=== PATIENT | male | born 1955 | race Caucasian/White ===

== ENCOUNTER 2018-08-12 15:18 | Inpatient (IN) | payer BC ==
[2018-08-12] MEDS ORDERED: KETOROLAC 30 MG/ML 1 ML VIAL IVP STA (16:23)
--- NOTE | 2018-08-12 16:25 | ED ---
Abdominal Pain HPI - General Chief Complaint: Abdominal Pain Stated Complaint: LLQ pain/Hx Hep C Time Seen by Provider: 08/12/18 16:00 Source: patient Mode of arrival: ambulatory Limitations: no limitations - History of Present Illness Initial Comments: Patient is a 62-year-old male presented for abdominal pain. The patient states that he has had hepatitis B and hepatitis C the last 30 years and effort last couple weeks, he has been having worsening abdominal pain is located in the left upper quadrant. As like an achy sensation which does not radiate and is fairly constant. However, it is worse with movement and is also associated with fevers and chills. He is unsure how high the fevers are gone but he has had 1-3 episodes daily over the last couple days. He denies any diarrhea as well as coughing, chest pain, shortness of breath. - Related Data Allergies Allergy/AdvReac Type Severity Reaction Status Date / Time No Known Allergies Allergy Verified 08/12/18 15:54 Review of Systems ROS Statement: Those systems with pertinent positive or pertinent negative responses have been documented in the HPI. Constitutional: Positive for chills, fatigue and fever. HENT: Negative for congestion. Respiratory: Negative for chest tightness, shortness of breath and wheezing. Negative for cough Cardiovascular: Negative for chest pain and palpitations. Gastrointestinal: Positive for abdominal pain. Negative for abdominal distention , diarrhea, positive for nausea and vomiting. Genitourinary: Negative for dysuria. Musculoskeletal: Negative for back pain, neck pain and neck stiffness. Skin: Negative for color change. Neurological: Negative for dizziness, speech difficulty, weakness and light- headedness. Psychiatric/Behavioral: Negative for agitation and confusion. Negative for anxiety ROS Other: All systems not noted in ROS Statement are negative. Past Medical History Additional Past Medical History / Comment(s): hepatitis C & B, psoriasis, skin disorder Additional Past Surgical History / Comment(s): nasal surgery Past Psychological History: No Psychological Hx Reported Smoking Status: Current every day smoker Past Alcohol Use History: None Reported Past Drug Use History: Marijuana General Exam - General Exam Comments Initial Comments: Constitutional: Pt is oriented to person, place, and time. Pt appears well- developed and well-nourished. No distress. HENT: Head: Normocephalic and atraumatic. Eyes: EOM are normal. Neck: Normal range of motion. Neck supple. Cardiovascular: Positive for tachycardia, regular rhythm, S1 normal, S2 normal and normal heart sounds. Exam reveals no gallop and no friction rub. No murmur heard. Pulmonary/Chest: Effort normal and breath sounds normal. No tachypnea and no bradypnea. No respiratory distress. No wheezes or rales noted. Abdominal: Soft. Bowel sounds are normal. Pt exhibits no shifting dullness, no distension, no pulsatile liver, no fluid wave, no abdominal bruit and no ascites. There is mild tenderness of the epigastric region. There is no rigidity , no rebound, no guarding, no tenderness at McBurney's point and negative Vazquez 's sign. Musculoskeletal: Normal range of motion. Neurological: Pt is alert and oriented to person, place, and time. No cranial nerve deficit. Skin: Skin is warm and dry. No rash noted. Pt is not diaphoretic. No erythema. No pallor. Psychiatric: Pt has a normal mood and affect. Pt behavior is normal. Thought content normal. Limitations: no limitations Course Vital Signs 08/12/18 08/12/18 08/12/18 15:54 17:57 18:00 Temperature 100.0 F H Pulse Rate 130 H 86 90 Respiratory 18 18 17 Rate Blood Pressure 155/102 O2 Sat by Pulse 95 Oximetry 08/12/18 08/12/18 08/12/18 18:30 18:40 19:00 Temperature 101 F H Pulse Rate 86 Respiratory 18 Rate Blood Pressure 113/74 O2 Sat by Pulse Oximetry 08/12/18 19:58 Temperature Pulse Rate Respiratory 16 Rate Blood Pressure 92/55 O2 Sat by Pulse 98 Oximetry Medical Decision Making - Medical Decision Making Lavatory studies showed that there was no significant leukocytosis and electrolytes were relatively within normal limits. Lactic acid was also noted to be normal but blood cultures were obtained as the patient was borderline febrile upon arrival. CT of the abdomen was performed and showed an abscess in the splenic flexure that was pericolonic in nature. Case was discussed with Dr. Torrez and it was agreed that ciprofloxacin and Flagyl could be continued. His also recommended that patient be admitted to the medical service as he does have multiple comorbidities,.Explained all labs and diagnostic test results and that we will admit patient to hospital. Pt is agreeable to plan and case has been discussed with mid-level provider and they agree to accept the pt. - Lab Data Result diagrams: 08/12/18 16:14 08/12/18 16:14 Lab Results 08/12/18 08/12/18 08/12/18 Range/Units 16:14 16:14 16:14 WBC 10.6 (3.8-10.6) k/uL RBC 5.11 (4.30-5.90) m/uL Hgb 15.8 (13.0-17.5) gm/dL Hct 46.7 (39.0-53.0) % MCV 91.4 (80.0-100.0) fL MCH 30.9 (25.0-35.0) pg MCHC 33.8 (31.0-37.0) g/dL RDW 11.9 (11.5-15.5) % Plt Count 192 (150-450) k/uL Neutrophils % 91 % Lymphocytes % 4 % Monocytes % 4 % Eosinophils % 1 % Basophils % 0 % Neutrophils # 9.6 H (1.3-7.7) k/uL Lymphocytes # 0.4 L (1.0-4.8) k/uL Monocytes # 0.4 (0-1.0) k/uL Eosinophils # 0.1 (0-0.7) k/uL Basophils # 0.0 (0-0.2) k/uL PT 10.2 (9.0-12.0) sec INR 1.0 (<1.2) APTT 20.6 L (22.0-30.0) sec Sodium 141 (137-145) mmol/L Potassium 4.6 (3.5-5.1) mmol/L Chloride 109 H (98-107) mmol/L Carbon Dioxide 22 (22-30) mmol/L Anion Gap 10 mmol/L BUN 19 (9-20) mg/dL Creatinine 0.90 (0.66-1.25) mg/dL Est GFR (CKD-EPI)AfAm >90 (>60 ml/min/1.73 sqM) Est GFR (CKD-EPI)NonAf 90 (>60 ml/min/1.73 sqM) Glucose 94 (74-99) mg/dL Plasma Lactic Acid Theodore (0.7-2.0) mmol/L Calcium 9.5 (8.4-10.2) mg/dL Total Bilirubin 1.8 H (0.2-1.3) mg/dL AST 66 H (17-59) U/L ALT 51 (21-72) U/L Alkaline Phosphatase 232 H (38-126) U/L Troponin I (0.000-0.034) ng/mL Total Protein 7.5 (6.3-8.2) g/dL Albumin 3.7 (3.5-5.0) g/dL Lipase 172 (23-300) U/L Urine Color Urine Appearance (Clear) Urine pH (5.0-8.0) Ur Specific [place] (1.001-1.035) Urine Protein (Negative) Urine Glucose (UA) (Negative) Urine Ketones (Negative) Urine Blood (Negative) Urine Nitrite (Negative) Urine Bilirubin (Negative) Urine Urobilinogen (<2.0) mg/dL Ur Leukocyte Esterase (Negative) Influenza Type A RNA (Not Detectd) Influenza Type B (PCR) (Not Detectd) 08/12/18 08/12/18 08/12/18 Range/Units 16:14 16:14 17:55 WBC (3.8-10.6) k/uL RBC (4.30-5.90) m/uL Hgb (13.0-17.5) gm/dL Hct (39.0-53.0) % MCV (80.0-100.0) fL MCH (25.0-35.0) pg MCHC (31.0-37.0) g/dL RDW (11.5-15.5) % Plt Count (150-450) k/uL Neutrophils % % Lymphocytes % % Monocytes % % Eosinophils % % Basophils % % Neutrophils # (1.3-7.7) k/uL Lymphocytes # (1.0-4.8) k/uL Monocytes # (0-1.0) k/uL Eosinophils # (0-0.7) k/uL Basophils # (0-0.2) k/uL PT (9.0-12.0) sec INR (<1.2) APTT (22.0-30.0) sec Sodium (137-145) mmol/L Potassium (3.5-5.1) mmol/L Chloride (98-107) mmol/L Carbon Dioxide (22-30) mmol/L Anion Gap mmol/L BUN (9-20) mg/dL Creatinine (0.66-1.25) mg/dL Est GFR (CKD-EPI)AfAm (>60 ml/min/1.73 sqM) Est GFR (CKD-EPI)NonAf (>60 ml/min/1.73 sqM) Glucose (74-99) mg/dL Plasma Lactic Acid Theodore 1.0 (0.7-2.0) mmol/L Calcium (8.4-10.2) mg/dL Total Bilirubin (0.2-1.3) mg/dL AST (17-59) U/L ALT (21-72) U/L Alkaline Phosphatase (38-126) U/L Troponin I <0.012 (0.000-0.034) ng/mL Total Protein (6.3-8.2) g/dL Albumin (3.5-5.0) g/dL Lipase (23-300) U/L Urine Color Yellow Urine Appearance Clear (Clear) Urine pH 7.0 (5.0-8.0) Ur Specific [place] 1.022 (1.001-1.035) Urine Protein Trace H (Negative) Urine Glucose (UA) Negative (Negative) Urine Ketones 1+ H (Negative) Urine Blood Negative (Negative) Urine Nitrite Negative (Negative) Urine Bilirubin Negative (Negative) Urine Urobilinogen 2.0 (<2.0) mg/dL Ur Leukocyte Esterase Negative (Negative) Influenza Type A RNA (Not Detectd) Influenza Type B (PCR) (Not Detectd) 08/12/18 Range/Units 17:55 WBC (3.8-10.6) k/uL RBC (4.30-5.90) m/uL Hgb (13.0-17.5) gm/dL Hct (39.0-53.0) % MCV (80.0-100.0) fL MCH (25.0-35.0) pg MCHC (31.0-37.0) g/dL RDW (11.5-15.5) % Plt Count (150-450) k/uL Neutrophils % % Lymphocytes % % Monocytes % % Eosinophils % % Basophils % % Neutrophils # (1.3-7.7) k/uL Lymphocytes # (1.0-4.8) k/uL Monocytes # (0-1.0) k/uL Eosinophils # (0-0.7) k/uL Basophils # (0-0.2) k/uL PT (9.0-12.0) sec INR (<1.2) APTT (22.0-30.0) sec Sodium (137-145) mmol/L Potassium (3.5-5.1) mmol/L Chloride (98-107) mmol/L Carbon Dioxide (22-30) mmol/L Anion Gap mmol/L BUN (9-20) mg/dL Creatinine (0.66-1.25) mg/dL Est GFR (CKD-EPI)AfAm (>60 ml/min/1.73 sqM) Est GFR (CKD-EPI)NonAf (>60 ml/min/1.73 sqM) Glucose (74-99) mg/dL Plasma Lactic Acid Theodore (0.7-2.0) mmol/L Calcium (8.4-10.2) mg/dL Total Bilirubin (0.2-1.3) mg/dL AST (17-59) U/L ALT (21-72) U/L Alkaline Phosphatase (38-126) U/L Troponin I (0.000-0.034) ng/mL Total Protein (6.3-8.2) g/dL Albumin (3.5-5.0) g/dL Lipase (23-300) U/L Urine Color Urine Appearance (Clear) Urine pH (5.0-8.0) Ur Specific [place] (1.001-1.035) Urine Protein (Negative) Urine Glucose (UA) (Negative) Urine Ketones (Negative) Urine Blood (Negative) Urine Nitrite (Negative) Urine Bilirubin (Negative) Urine Urobilinogen (<2.0) mg/dL Ur Leukocyte Esterase (Negative) Influenza Type A RNA Not Detected (Not Detectd) Influenza Type B (PCR) Not Detected (Not Detectd) - EKG Data -: EKG Interpreted by Me EKG Comments: EKG shows normal sinus rhythm a rate of 94 bpm, [place] interval 150, QRS 76, QTC 440 Disposition Clinical Impression: Pericolonic abscess due to diverticulitis Disposition: [facility] Condition: Good Referrals: None,Stated [Primary Care Provider] - 1-2 days Decision to Admit Reason: Admit from EC Decision Date: 08/12/18 Decision Time: 20:53
[2018-08-12 17:40] LABS: Appearance,Urine Clear (Clear); Bilirubin,Urine Negative (Negative); Blood,Urine Negative (Negative); Color,Urine Yellow; Glucose,Urine (UA) Negative (Negative); Ketones,Urine 1+ (Negative); Leukocyte Esterase,Urine Negative (Negative); Nitrite,Urine Negative (Negative); Protein,Urine Trace (Negative); Specific Gravity,Urine 1.022 (1.001-1.035)
[2018-08-12] MEDS: SODIUM CHLORIDE 0.9% 500 ML 500 ML IV SCH ×3 (17:45→18:34)
[2018-08-12 17:46] LABS: ALT 51 U/L (21-72); AST 66 U/L (17-59); Albumin 3.7 g/dL (3.5-5.0); Alkaline Phosphatase 232 U/L (38-126); Anion Gap 10 mmol/L; Blood Urea Nitrogen 19 mg/dL (9-20); Calcium 9.5 mg/dL (8.4-10.2); Carbon Dioxide 22 mmol/L (22-30); Chloride 109 mmol/L (98-107); Glucose 94 mg/dL (74-99); Lipase 172 U/L (23-300); Potassium 4.6 mmol/L (3.5-5.1); Sodium 141 mmol/L (137-145); Total Bilirubin 1.8 mg/dL (0.2-1.3); Total Protein 7.5 g/dL (6.3-8.2)
[2018-08-12 17:58] LABS: Prothrombin Time 10.2 sec (9.0-12.0)
[2018-08-12 18:00] LABS: Basophils % (A) 0 %; Eosinophils # (A) 0.1 k/uL (0-0.7); Eosinophils % (A) 1 %; HCT 46.7 % (39.0-53.0); HGB 15.8 gm/dL (13.0-17.5); Lymphocytes # (A) 0.4 k/uL (1.0-4.8); Lymphocytes % (A) 4 %; MCH 30.9 pg (25.0-35.0); MCHC 33.8 g/dL (31.0-37.0); MCV 91.4 fL (80.0-100.0); Mean Platelet Volume 7.1; Monocytes # (A) 0.4 k/uL (0-1.0); Monocytes % (A) 4 %; Neutrophils # (A) 9.6 k/uL (1.3-7.7); Neutrophils % (A) 91 %; Partial Thromboplastin Time 20.6 sec (22.0-30.0); Platelet Count 192 k/uL (150-450); RBC 5.11 m/uL (4.30-5.90); RDW 11.9 % (11.5-15.5); WBC 10.6 k/uL (3.8-10.6)
--- NOTE | 2018-08-12 19:29 | CT ---
EXAMINATION TYPE: CT abdomen pelvis w con DATE OF EXAM: 08/12/2018 COMPARISON: HISTORY: Left sided abdominal pain with fever, history of hepatitis B and C. CT DLP: 776.3 mGycm Automated exposure control for dose reduction was used. TECHNIQUE: Helical acquisition of images was performed from the lung bases through the pelvis. CONTRAST: Performed without Oral Contrast and with IV Contrast, patient injected with 100 mL of Isovue 300. FINDINGS: LUNG BASES: No significant abnormality. LIVER/GB: No significant abnormality. The gallbladder is unremarkable. PANCREAS: No significant abnormality. The perihepatic tail is mildly prominent likely an anatomic saulo iant. ADRENALS: No significant abnormality. KIDNEYS: No significant abnormality is seen. Left inferior pole renal cyst measures up to 7.[address] cm[address] cumaortic left renal vein. FREE AIR: No free air is visualized. RETROPERITONEAL ADENOPATHY: Some prominent but nonenlarged retroperitoneal lymph nodes are present. These are likely secondary to the inflammatory process of the colon. REPRODUCTIVE ORGANS: No significant abnormality is seen URINARY BLADDER: No significant abnormality is seen. PELVIC ADENOPATHY: None visualized. OSSEOUS STRUCTURES: No evidence of acute fracture. Multilevel degenerative type changes of the lumba r spine most pronounced at L2-L3 with multiple intervertebral space extradural defects with resultant effacement of the ventral thecal sac. BOWEL: Circumferential wall thickening measuring up to 1.1 cm identified of the splenic flexure with associated surrounding mesenteric fat inflammation and trace amount of fluid. Relatively well-define d multiloculated 4.7 x 2.8 x 3.7 cm focus of fluid low attenuation situated between the colon and spl een. Normal appendix. Additional noninflamed diverticula of the colon. The spleen maintains normal enhancement although is enlarged and measures 15.4 cm. IMPRESSION: 1. Pericolonic abscess located between the splenic flexure and spleen measures up to 4.7 cm, likely s equela of diverticulitis. 2. Splenomegaly.
--- NOTE | 2018-08-12 20:10 | XR ---
EXAMINATION TYPE: XR chest 2V DATE OF EXAM: 08/12/2018 COMPARISON: NONE HISTORY: Fever, weakness TECHNIQUE: Frontal and lateral views of the chest are obtained. FINDINGS: Left lower lung subsegmental atelectasis. There is no suspicious focal air space opacity, p leural effusion, or pneumothorax seen. The cardiac silhouette size is within normal limits. The os seous structures are intact. IMPRESSION: No acute cardiopulmonary process.
[2018-08-12] MEDS ORDERED: NALOXONE 0.4 MG/ML 1 ML VIAL IV PRN (20:49)
[2018-08-12] MEDS: LEVOFLOXACIN 500MG-D5W PMX 500 MG in DEXTROSE/WATER 1 100ML.BAG IVPB SCH (21:32)
[2018-08-12 22:26] VITALS: BMI 26.6
[2018-08-12] MEDS: metroNIDAZOLE-NS PMX 500 MG in SALINE 1 100ML.BAG IVPB SCH (23:12)
[2018-08-12] MEDS: SODIUM CHLORIDE 0.9% 1,000 ML IV SCH (23:15)
[2018-08-13] MEDS: ONDANSETRON 4 MG/2 ML VIAL IVP PRN ×2 (04:43→19:49)
[2018-08-13] MEDS: MORPHINE SULFATE 4 MG/ML SYRINGE IV PRN ×2 (04:46→19:49)
[2018-08-13] MEDS: metroNIDAZOLE-NS PMX 500 MG in SALINE 1 100ML.BAG IVPB SCH ×3 (05:10→23:28)
[2018-08-13 07:41] LABS: Basophils % (A) 0 %; Eosinophils % (A) 1 %; HCT 39.6 % (39.0-53.0); HGB 13.1 gm/dL (13.0-17.5); Lymphocytes # (A) 0.9 k/uL (1.0-4.8); Lymphocytes % (A) 16 %; MCH 30.3 pg (25.0-35.0); MCHC 33.2 g/dL (31.0-37.0); MCV 91.3 fL (80.0-100.0); Mean Platelet Volume 6.8; Monocytes # (A) 0.3 k/uL (0-1.0); Monocytes % (A) 4 %; Neutrophils # (A) 4.5 k/uL (1.3-7.7); Neutrophils % (A) 78 %; Platelet Count 177 k/uL (150-450); RBC 4.34 m/uL (4.30-5.90); WBC 5.8 k/uL (3.8-10.6)
[2018-08-13 07:50] LABS: ALT 48 U/L (21-72); AST 48 U/L (17-59); Albumin 2.8 g/dL (3.5-5.0); Alkaline Phosphatase 157 U/L (38-126); Anion Gap 7 mmol/L; Blood Urea Nitrogen 17 mg/dL (9-20); Calcium 8.4 mg/dL (8.4-10.2); Carbon Dioxide 21 mmol/L (22-30); Chloride 112 mmol/L (98-107); Glucose 85 mg/dL (74-99); Potassium 4.5 mmol/L (3.5-5.1); Sodium 140 mmol/L (137-145); Total Bilirubin 1.8 mg/dL (0.2-1.3)
[2018-08-13] MEDS: SODIUM CHLORIDE 0.9% 1,000 ML IV SCH ×2 (09:55→17:51)
--- NOTE | 2018-08-13 11:43 | P.GSCN ---
History of Present Illness Consult date: 08/13/18 Reason for Consult: Pericolonic abscess History of present illness: Patient comes in the hospital last night with a several-day history of left upper quadrant pain and fevers. He was febrile last night to 101. White blood cell count normal. CAT scan shows a pericolonic abscess near the splenic flexure. No history of similar events. Denies rectal bleeding or melena. No previous colonoscopy. Coags normal. Review of Systems The patient denies any acute changes in vision or hearing, no dysphagia or odynophagia, no chest pain or shortness of breath, no dysuria or hematuria, no headache, no runny nose, no rectal bleeding or melena, no unexplained weight loss Past Medical History Additional Past Medical History / Comment(s): hepatitis C & B, psoriasis, skin disorder History of Any Multi-Drug Resistant Organisms: None Reported Additional Past Surgical History / Comment(s): nasal surgery Past Psychological History: No Psychological Hx Reported Smoking Status: Current every day smoker Past Alcohol Use History: None Reported Past Drug Use History: Marijuana Medications and Allergies Home Medications Medication Instructions Recorded Confirmed Type No Known Home Medications 08/13/18 08/13/18 History Allergies Allergy/AdvReac Type Severity Reaction Status Date / Time No Known Allergies Allergy Verified 08/13/18 10:20 Surgical - Exam Vital Signs Temp Pulse Resp BP Pulse Ox 100.0 F H 130 H 18 155/102 95 08/12/18 15:54 08/12/18 15:54 08/12/18 15:54 08/12/18 15:54 08/12/18 15:54 Physical exam: General: Well-developed, well-nourished HEENT: Normocephalic, sclerae nonicteric Abdomen: Mild left upper quadrant tenderness, nondistended Extremities: No edema Neuro: Alert and oriented Results - Labs 08/13/18 06:49 08/13/18 06:49 Abnormal Lab Results - Last 24 Hours (Table) 08/12/18 08/12/18 08/12/18 Range/Units 16:14 16:14 16:14 Neutrophils # 9.6 H (1.3-7.7) k/uL Lymphocytes # 0.4 L (1.0-4.8) k/uL APTT 20.6 L (22.0-30.0) sec Chloride 109 H (98-107) mmol/L Carbon Dioxide (22-30) mmol/L Total Bilirubin 1.8 H (0.2-1.3) mg/dL AST 66 H (17-59) U/L Alkaline Phosphatase 232 H (38-126) U/L Total Protein (6.3-8.2) g/dL Albumin (3.5-5.0) g/dL Urine Protein (Negative) Urine Ketones (Negative) 08/12/18 08/13/18 08/13/18 Range/Units 16:14 06:49 06:49 Neutrophils # (1.3-7.7) k/uL Lymphocytes # 0.9 L (1.0-4.8) k/uL APTT (22.0-30.0) sec Chloride 112 H (98-107) mmol/L Carbon Dioxide 21 L (22-30) mmol/L Total Bilirubin 1.8 H (0.2-1.3) mg/dL AST (17-59) U/L Alkaline Phosphatase 157 H (38-126) U/L Total Protein 6.0 L (6.3-8.2) g/dL Albumin 2.8 L (3.5-5.0) g/dL Urine Protein Trace H (Negative) Urine Ketones 1+ H (Negative) Microbiology - Last 24 Hours (Table) 08/12/18 16:14 Urine Culture - Preliminary Urine,Voided Diabetes panel 08/12/18 08/13/18 Range/Units 16:14 06:49 Sodium 141 140 (137-145) mmol/L Potassium 4.6 4.5 (3.5-5.1) mmol/L Chloride 109 H 112 H (98-107) mmol/L Carbon Dioxide 22 21 L (22-30) mmol/L BUN 19 17 (9-20) mg/dL Creatinine 0.90 0.88 (0.66-1.25) mg/dL Glucose 94 85 (74-99) mg/dL Calcium 9.5 8.4 (8.4-10.2) mg/dL AST 66 H 48 (17-59) U/L ALT 51 48 (21-72) U/L Alkaline Phosphatase 232 H 157 H (38-126) U/L Total Protein 7.5 6.0 L (6.3-8.2) g/dL Albumin 3.7 2.8 L (3.5-5.0) g/dL Calcium panel 08/12/18 08/13/18 Range/Units 16:14 06:49 Calcium 9.5 8.4 (8.4-10.2) mg/dL Albumin 3.7 2.8 L (3.5-5.0) g/dL Pituitary panel 08/12/18 08/13/18 Range/Units 16:14 06:49 Sodium 141 140 (137-145) mmol/L Potassium 4.6 4.5 (3.5-5.1) mmol/L Chloride 109 H 112 H (98-107) mmol/L Carbon Dioxide 22 21 L (22-30) mmol/L BUN 19 17 (9-20) mg/dL Creatinine 0.90 0.88 (0.66-1.25) mg/dL Glucose 94 85 (74-99) mg/dL Calcium 9.5 8.4 (8.4-10.2) mg/dL Adrenal panel 08/12/18 08/13/18 Range/Units 16:14 06:49 Sodium 141 140 (137-145) mmol/L Potassium 4.6 4.5 (3.5-5.1) mmol/L Chloride 109 H 112 H (98-107) mmol/L Carbon Dioxide 22 21 L (22-30) mmol/L BUN 19 17 (9-20) mg/dL Creatinine 0.90 0.88 (0.66-1.25) mg/dL Glucose 94 85 (74-99) mg/dL Calcium 9.5 8.4 (8.4-10.2) mg/dL Total Bilirubin 1.8 H 1.8 H (0.2-1.3) mg/dL AST 66 H 48 (17-59) U/L ALT 51 48 (21-72) U/L Alkaline Phosphatase 232 H 157 H (38-126) U/L Total Protein 7.5 6.0 L (6.3-8.2) g/dL Albumin 3.7 2.8 L (3.5-5.0) g/dL Assessment and Plan (1) Pericolonic abscess due to diverticulitis Narrative/Plan: Patient with a pericolonic abscess. Etiology likely diverticular but cannot rule out underlying malignancy. We'll consult radiology for percutaneous drainage. Continue antibiotics. Consider interventional radiology consultation. Patient will require colonoscopy post discharge. Current Visit: Yes Status: Acute Code(s): K57.20 - DVTRCLI OF LG INT W PERFORATION AND ABSCESS W/O BLEEDING SNOMED Code(s): 445850731
[2018-08-13] MEDS: HEPARIN SODIUM,PORCINE 5,000 UNIT/ML 1 ML VIAL SQ SCH ×2 (15:30→23:29)
--- NOTE | 2018-08-13 15:40 | P.HPIM ---
History of Present Illness Patient given with complaints of left upper quadrant abdominal pain nausea vomiting fevers fevers has been going on for couple days his abdominal pain has been going on for about a week. Patient is found to have a periclitoral colonic abscess near the splenic flexure. General surgery was consulted patient was started on levofloxacin and metronidazole which will be continued. Patient is feeling better today abdominal pain is better patient had about 7/10 and severe sharp pain Review of Systems REVIEW OF SYSTEMS: CONSTITUTIONAL: As mentioned in HPI HEENT: No recent visual problems or hearing problems. Denied any sore throat. CARDIOVASCULAR: No chest pain, orthopnea, PND, no palpitations, no syncope. PULMONARY: No shortness of breath, no cough, no hemoptysis. GASTROINTESTINAL: As mentioned in HPI NEUROLOGICAL: No headaches, no weakness, no numbness. HEMATOLOGICAL: Denies any bleeding or petechiae. GENITOURINARY: Denies any burning micturition, frequency, or urgency. MUSCULOSKELETAL/RHEUMATOLOGICAL: Denies any joint pain, swelling, or any muscle pain. ENDOCRINE: Denies any polyuria or polydipsia. The rest of the 14-point review of systems is negative. Past Medical History Additional Past Medical History / Comment(s): hepatitis C & B, psoriasis, skin disorder History of Any Multi-Drug Resistant Organisms: None Reported Additional Past Surgical History / Comment(s): nasal surgery Past Psychological History: No Psychological Hx Reported Smoking Status: Current every day smoker Past Alcohol Use History: None Reported Past Drug Use History: Marijuana Medications and Allergies Home Medications Medication Instructions Recorded Confirmed Type No Known Home Medications 08/13/18 08/13/18 History Allergies Allergy/AdvReac Type Severity Reaction Status Date / Time No Known Allergies Allergy Verified 08/13/18 10:20 Physical Exam Vitals: Vital Signs Temp Pulse Pulse Pulse Resp BP BP 08/13/18 14:55 98.9 F 85 16 131/71 08/13/18 07:00 98.8 F 82 18 98/53 08/12/18 23:39 98.7 F 78 97 16 112/61 08/12/18 21:20 99.3 F 75 16 112/76 08/12/18 19:58 16 92/55 08/12/18 19:00 113/74 08/12/18 18:40 101 F H 08/12/18 18:30 86 18 08/12/18 18:00 90 17 12/01/18 17:57 86 18 08/12/18 15:54 100.0 F H 130 H 18 155/102 Pulse Ox 08/13/18 14:55 96 08/13/18 07:00 94 L 08/12/18 23:39 08/12/18 21:20 98 08/12/18 19:58 98 08/12/18 19:00 08/12/18 18:40 08/12/18 18:30 08/12/18 18:00 08/12/18 17:57 08/12/18 15:54 95 Intake and Output 08/13/18 08/13/18 08/13/18 06:59 14:59 22:59 Intake Total 500 Balance 500 Intake: Intake, IV Titration 500 Amount Sodium Chloride 0.9% 1, 500 000 ml @ 100 mls/hr IV . Q10H JARAD Rx#:[id number] Other: # Voids 3 PHYSICAL EXAMINATION: GENERAL: The patient is alert and oriented x3, not in any acute distress. Well developed, well nourished. HEENT: Pupils are round and equally reacting to light. EOMI. No scleral icterus. No conjunctival pallor. Normocephalic, atraumatic. No pharyngeal erythema. No thyromegaly. CARDIOVASCULAR: S1 and S2 present. No murmurs, rubs, or gallops. PULMONARY: Chest is clear to auscultation, no wheezing or crackles. ABDOMEN: Soft, tenderness in the left side of the abdomen no rebound or rigidity MUSCULOSKELETAL: No joint swelling or deformity. EXTREMITIES: No cyanosis, clubbing, or pedal edema. NEUROLOGICAL: Gross neurological examination did not reveal any focal deficits. SKIN: No rashes. Results CBC & Chem 7: 08/13/18 06:49 08/13/18 06:49 Labs: Abnormal Lab Results - Last 24 Hours (Table) 08/12/18 08/12/18 08/12/18 Range/Units 16:14 16:14 16:14 Neutrophils # 9.6 H (1.3-7.7) k/uL Lymphocytes # 0.4 L (1.0-4.8) k/uL APTT 20.6 L (22.0-30.0) sec Chloride 109 H (98-107) mmol/L Carbon Dioxide (22-30) mmol/L Total Bilirubin 1.8 H (0.2-1.3) mg/dL AST 66 H (17-59) U/L Alkaline Phosphatase 232 H (38-126) U/L Total Protein (6.3-8.2) g/dL Albumin (3.5-5.0) g/dL Urine Protein (Negative) Urine Ketones (Negative) 08/12/18 08/13/18 08/13/18 Range/Units 16:14 06:49 06:49 Neutrophils # (1.3-7.7) k/uL Lymphocytes # 0.9 L (1.0-4.8) k/uL APTT (22.0-30.0) sec Chloride 112 H (98-107) mmol/L Carbon Dioxide 21 L (22-30) mmol/L Total Bilirubin 1.8 H (0.2-1.3) mg/dL AST (17-59) U/L Alkaline Phosphatase 157 H (38-126) U/L Total Protein 6.0 L (6.3-8.2) g/dL Albumin 2.8 L (3.5-5.0) g/dL Urine Protein Trace H (Negative) Urine Ketones 1+ H (Negative) Microbiology - Last 24 Hours (Table) 08/12/18 16:14 Urine Culture - Preliminary Urine,Voided Thrombosis Risk Factor Assmnt - Choose All That Apply Any of the Below Risk Factors Present?: No Each Risk Factor Represents 2 Points: Age 61-74 years Other congenital or acquired thrombophilia - If yes, enter type in comment: No Thrombosis Risk Factor Assessment Total Risk Factor Score: 2 Thrombosis Risk Factor Assessment Level: Low Risk Assessment and Plan Plan: -Diverticulitis and pericolonic abscess: Patient was started on IV antibiotics interventional radiology is being consulted for percutaneous drainage. -Sepsis secondary to intra abdominal abscess -Nicotine abuse: Counseling was provided -History of hepatitis viral [facility] follow-up with gastro-oncology as an outpatient
[2018-08-13] MEDS ORDERED: ACETAMINOPHEN TAB 325 MG TAB PO PRN (19:16)
[2018-08-13] MEDS: LEVOFLOXACIN 500MG-D5W PMX 500 MG in DEXTROSE/WATER 1 100ML.BAG IVPB SCH (21:50)
[2018-08-14] MEDS: SODIUM CHLORIDE 0.9% 1,000 ML IV SCH ×2 (03:25→14:07)
[2018-08-14] MEDS: metroNIDAZOLE-NS PMX 500 MG in SALINE 1 100ML.BAG IVPB SCH ×3 (05:20→22:05)
[2018-08-14] MEDS: ONDANSETRON 4 MG/2 ML VIAL IVP PRN ×3 (05:22→22:05)
[2018-08-14] MEDS: MORPHINE SULFATE 4 MG/ML SYRINGE IV PRN ×4 (05:23→22:06)
[2018-08-14] MEDS: HEPARIN SODIUM,PORCINE 5,000 UNIT/ML 1 ML VIAL SQ SCH ×2 (08:14→15:57)
[2018-08-14] MEDS ORDERED: HYDROmorphone 1 MG/ML 1 ML SYRINGE IVP STA (13:31)
--- NOTE | 2018-08-14 13:44 | P.PN ---
Subjective Patient is admitted for left pericolonic abscess patient will undergo pressure evaluated drainage. Constitutional: Denied any fatigue denied any fever. Cardio vascular: denied any chest pain, palpitations Gastrointestinal denied any nausea vomiting Pulmonary: Denied any shortness of breath cough Neurologic denied any new focal deficits All inpatient medications were reviewed and appropriate changes in these medications as dictated in the interval history and assessment and plan. Objective - Vital Signs Vital signs: Vital Signs Temp 98.6 F 08/14/18 07:00 Pulse 68 08/14/18 13:26 Resp 12 08/14/18 13:26 BP 108/63 08/14/18 13:26 Pulse Ox 95 08/14/18 13:26 Intake & Output 08/13/18 08/14/18 08/14/18 18:59 06:59 18:59 Intake Total 800 800 Balance 800 800 Intake: Intake, IV Titration 800 800 Amount Sodium Chloride 0.9% 1, 800 800 000 ml @ 100 mls/hr IV . Q10H JARAD Rx#:[id number] Other: # Voids 1 - Exam PHYSICAL EXAMINATION: GENERAL: The patient is alert and oriented x3, not in any acute distress. Well developed, well nourished. HEENT: Pupils are round and equally reacting to light. EOMI. No scleral icterus. No conjunctival pallor. Normocephalic, atraumatic. No pharyngeal erythema. No thyromegaly. CARDIOVASCULAR: S1 and S2 present. No murmurs, rubs, or gallops. PULMONARY: Chest is clear to auscultation, no wheezing or crackles. ABDOMEN: Soft, tenderness in the left side of the abdomen no rebound or rigidity MUSCULOSKELETAL: No joint swelling or deformity. EXTREMITIES: No cyanosis, clubbing, or pedal edema. NEUROLOGICAL: Gross neurological examination did not reveal any focal deficits. SKIN: No rashes. - Labs CBC & Chem 7: 08/13/18 06:49 08/13/18 06:49 Labs: Microbiology - Last 24 Hours (Table) 08/12/18 16:14 Urine Culture - Final Urine,Voided 08/12/18 16:14 Blood Culture - Preliminary Blood No Growth after 24 hours Assessment and Plan Plan: -Diverticulitis and pericolonic abscess: Patient was started on IV antibiotics interventional radiology is being consulted for percutaneous drainage. -Sepsis secondary to intra abdominal abscess -Nicotine abuse: Counseling was provided -History of hepatitis viral CNB follow-up with gastro-oncology as an outpatient
--- NOTE | 2018-08-14 16:17 | CT ---
EXAMINATION TYPE: CT guided abscess drainage DATE OF EXAM: 08/14/2018 HISTORY: Abdominal abscess COMPARISON: CT 08/12/2018 PROCEDURE: Maximal barrier technique was utilized. The skin over suitable path to the abscess in the left upper quadrant was localized with CT and the overlying skin prepped and draped. Lidocaine was used for lo dejuan anesthesia. A skin travis made with a scalpel. Access was gained using CT guidance with a 21-gaug e needle, purulent material returned in the hub of the needle. A 0.018 inch wire was advanced and th e access site was upsized, the wire was upsized and subsequently an 8.5-Russian drain was deployed wit hin the abscess cavity and fixed in place. Catheter attached to gravity drainage. No immediate comp lication. Purulent material sent for laboratory analysis and draining into the bag. The patient rem ained in stable condition. IMPRESSION: STATUS POST CT GUIDED ABSCESS DRAINAGE, MICROBIOLOGY ANALYSIS IS PENDING. THIS PROCEDURE WAS PERFORM ED BY THE UNDERSIGNED.
--- NOTE | 2018-08-14 19:25 | P.PN ---
Subjective Progress Note Date: 08/14/18 Principal diagnosis: Pericolonic abscess Patient returned from his drainage procedure a while ago. Still having some pain at the drain insertion site. Purulent fluid was encountered. Cultures are pending. Overall he feels somewhat better at this time. No fevers. T-max 100.3 yesterday afternoon. White blood cell count normal. Objective - Vital Signs Vital signs: Vital Signs Temp 98.8 F 08/14/18 16:33 Pulse 72 08/14/18 16:31 Resp 14 08/14/18 13:50 BP 135/72 08/14/18 16:31 Pulse Ox 96 08/14/18 16:21 Intake & Output 08/14/18 08/14/18 08/15/18 06:59 18:59 06:59 Intake Total 800 Output Total 10 Balance 800 -10 Intake: Intake, IV Titration 800 Amount Sodium Chloride 0.9% 1, 800 000 ml @ 100 mls/hr IV . Q10H JARAD Rx#:[id number] Output: Drainage 10 Left Abdomen 10 Other: # Voids 1 2 - Exam Abdomen: Soft, nondistended, mild left upper quadrant tenderness, drain intact draining purulent fluid - Labs CBC & Chem 7: 08/13/18 06:49 08/13/18 06:49 Labs: Microbiology - Last 24 Hours (Table) 08/14/18 13:45 Body Fluid Culture - Preliminary Aspirate 08/14/18 13:45 Anaerobic Culture - Preliminary Aspirate 08/12/18 16:14 Urine Culture - Final Urine,Voided 08/12/18 16:14 Blood Culture - Preliminary Blood No Growth after 24 hours Assessment and Plan (1) Pericolonic abscess due to diverticulitis Narrative/Plan: Continue IV antibiotics. Await cultures. Resume diet. Current Visit: Yes Status: Acute Code(s): K57.20 - DVTRCLI OF LG INT W PERFORATION AND ABSCESS W/O BLEEDING SNOMED Code(s): 075725885
[2018-08-14] MEDS: LEVOFLOXACIN 500MG-D5W PMX 500 MG in DEXTROSE/WATER 1 100ML.BAG IVPB SCH (20:23)
[2018-08-15] MEDS: HEPARIN SODIUM,PORCINE 5,000 UNIT/ML 1 ML VIAL SQ SCH ×3 (00:08→16:31)
[2018-08-15] MEDS: SODIUM CHLORIDE 0.9% 1,000 ML IV SCH ×2 (00:09→20:49)
[2018-08-15] MEDS: ONDANSETRON 4 MG/2 ML VIAL IVP PRN ×3 (03:17→16:33)
[2018-08-15] MEDS: MORPHINE SULFATE 4 MG/ML SYRINGE IV PRN ×2 (03:17→08:07)
[2018-08-15] MEDS: metroNIDAZOLE-NS PMX 500 MG in SALINE 1 100ML.BAG IVPB SCH ×2 (05:47→13:55)
[2018-08-15 07:54] LABS: HGB 13.2 gm/dL (13.0-17.5); MCH 31.2 pg (25.0-35.0); MCHC 34.6 g/dL (31.0-37.0); MCV 90.2 fL (80.0-100.0); Mean Platelet Volume 6.8; Platelet Count 165 k/uL (150-450); RBC 4.22 m/uL (4.30-5.90); RDW 12.1 % (11.5-15.5); WBC 8.8 k/uL (3.8-10.6)
[2018-08-15 08:08] LABS: ALT 38 U/L (21-72); AST 34 U/L (17-59); Albumin 2.7 g/dL (3.5-5.0); Alkaline Phosphatase 183 U/L (38-126); Anion Gap 5 mmol/L; Blood Urea Nitrogen 12 mg/dL (9-20); Calcium 8.2 mg/dL (8.4-10.2); Carbon Dioxide 24 mmol/L (22-30); Chloride 109 mmol/L (98-107); Glucose 106 mg/dL (74-99); Sodium 138 mmol/L (137-145); Total Bilirubin 1.4 mg/dL (0.2-1.3)
[2018-08-15 08:28] LABS: Potassium 4.2 mmol/L (3.5-5.1)
--- NOTE | 2018-08-15 14:27 | P.PN ---
Subjective Progress Note Date: 08/15/18 Principal diagnosis: Pericolonic abscess Patient complaining of some nausea today. Pain is improved. Drain is still seropurulent. Culture showing strep. Objective - Vital Signs Vital signs: Vital Signs Temp 98.1 F 08/15/18 08:09 Pulse 76 08/15/18 08:09 Resp 18 08/15/18 08:09 BP 127/72 08/15/18 08:09 Pulse Ox 94 L 08/15/18 08:09 Intake & Output 08/14/18 08/15/18 08/15/18 18:59 06:59 18:59 Intake Total 1400 800 Output Total 10 40 Balance -10 1360 800 Intake: Intake, IV Titration 1400 800 Amount Levofloxacin 500Mg-D5w 100 Pmx 500 mg In Dextrose/ Water 1 100ml.bag @ 100 mls/hr IVPB Q24H JARAD Rx#: [id number] Sodium Chloride 0.9% 1, 1100 700 000 ml @ 100 mls/hr IV . Q10H JARAD Rx#:[id number] metroNIDAZOLE-NS PMX 500 200 100 mg In Saline 1 100ml.bag @ 100 mls/hr IVPB Q8H JARAD Rx#:[id number] Output: Drainage 10 40 Left Abdomen 10 40 Other: Voiding Method Toilet Toilet # Voids 2 1 - Exam Abdomen: Soft, nondistended, mild tenderness at drain site - Labs CBC & Chem 7: 08/15/18 07:27 08/15/18 07:27 Labs: Abnormal Lab Results - Last 24 Hours (Table) 08/15/18 08/15/18 Range/Units 07:27 07:27 RBC 4.22 L (4.30-5.90) m/uL Hct 38.0 L (39.0-53.0) % Chloride 109 H (98-107) mmol/L Glucose 106 H (74-99) mg/dL Calcium 8.2 L (8.4-10.2) mg/dL Total Bilirubin 1.4 H (0.2-1.3) mg/dL Alkaline Phosphatase 183 H (38-126) U/L Total Protein 6.0 L (6.3-8.2) g/dL Albumin 2.7 L (3.5-5.0) g/dL Microbiology - Last 24 Hours (Table) 08/14/18 13:45 Gram Stain - Preliminary Aspirate Body Fluid Culture - Preliminary Beta Hemolytic Strep Group G 08/12/18 16:14 Blood Culture - Preliminary Blood No Growth after 48 hours 08/14/18 13:45 Anaerobic Culture - Preliminary Aspirate Assessment and Plan (1) Pericolonic abscess due to diverticulitis Narrative/Plan: Continue IV antibiotics. Consider infectious disease evaluation to determine IV versus oral antibiotics postdischarge. Await final cultures. Keep drain in place. Diet as tolerated. Current Visit: Yes Status: Acute Code(s): K57.20 - DVTRCLI OF LG INT W PERFORATION AND ABSCESS W/O BLEEDING SNOMED Code(s): 802855023
--- NOTE | 2018-08-15 18:34 | P.PN ---
Subjective Progress Note Date: 08/15/18 Progress note being dictated for Dr. Watt. Interval history:Patient is admitted for left pericolonic abscess patient will undergo pressure evaluated drainage. 08/15/2018 maintained on Levaquin and Flagyl. T-max 101.4. Aspirated culture reporting beta-hemolytic strep group G. Pain currently controlled. Minimal ambulation, within room. Complains of nausea, no emesis. No bowel movement, no flatus passed today. Objective - Vital Signs Vital signs: Vital Signs Temp 98 F 08/15/18 14:54 Pulse 63 08/15/18 15:47 Resp 16 08/15/18 15:47 BP 113/72 08/15/18 14:54 Pulse Ox 94 L 08/15/18 14:54 Intake & Output 08/14/18 08/15/18 08/15/18 18:59 06:59 18:59 Intake Total 1400 800 Output Total 10 40 Balance -10 1360 800 Intake: Intake, IV Titration 1400 800 Amount Levofloxacin 500Mg-D5w 100 Pmx 500 mg In Dextrose/ Water 1 100ml.bag @ 100 mls/hr IVPB Q24H JARAD Rx#: [id number] Sodium Chloride 0.9% 1, 1100 700 000 ml @ 100 mls/hr IV . Q10H JARAD Rx#:[id number] metroNIDAZOLE-NS PMX 500 200 100 mg In Saline 1 100ml.bag @ 100 mls/hr IVPB Q8H JARAD Rx#:[id number] Output: Drainage 10 40 Left Abdomen 10 40 Other: Voiding Method Toilet Toilet # Voids 2 1 - Exam GENERAL: Sitting up in chair, alert and oriented x3, not in any acute distress. HEENT: Pupils are round and equally reacting to light. EOMI. No scleral icterus. No conjunctival pallor. Normocephalic, atraumatic. CARDIOVASCULAR: S1 and S2 present. No murmurs, rubs, or gallops. PULMONARY: Chest is clear to auscultation, no wheezing or crackles. ABDOMEN: Soft, nondistended tenderness at drain site , serous purulent drainage , abdominal dressing clean dry and intact, MUSCULOSKELETAL: No joint swelling or deformity. EXTREMITIES: No cyanosis, clubbing, or pedal edema. NEUROLOGICAL: Gross neurological examination did not reveal any focal deficits. SKIN: No rashes. - Labs CBC & Chem 7: 12/04/18 07:27 08/15/18 07:27 Labs: Abnormal Lab Results - Last 24 Hours (Table) 08/15/18 08/15/18 Range/Units 07:27 07:27 RBC 4.22 L (4.30-5.90) m/uL Hct 38.0 L (39.0-53.0) % Chloride 109 H (98-107) mmol/L Glucose 106 H (74-99) mg/dL Calcium 8.2 L (8.4-10.2) mg/dL Total Bilirubin 1.4 H (0.2-1.3) mg/dL Alkaline Phosphatase 183 H (38-126) U/L Total Protein 6.0 L (6.3-8.2) g/dL Albumin 2.7 L (3.5-5.0) g/dL Microbiology - Last 24 Hours (Table) 08/14/18 13:45 Gram Stain - Preliminary Aspirate Body Fluid Culture - Preliminary Beta Hemolytic Strep Group G 08/12/18 16:14 Blood Culture - Preliminary Blood No Growth after 48 hours 08/14/18 13:45 Anaerobic Culture - Preliminary Aspirate Assessment and Plan Assessment: -Diverticulitis and pericolonic abscess, status post drainage, beta-hemolytic strep group G. -Sepsis secondary to intra abdominal abscess -Nicotine abuse -History of hepatitis viral CNB follow-up with gastro-oncology as an outpatient Plan: Continue on current medication regime ,monitoring and symptomatic treatment. Patient febrile with hemolytic strep status post drainage, Infectious disease consulted. Aggressive pulmonary toileting with incentive spirometer ordered. Increase ambulation as tolerated. The impression and plan of care has been dictated as directed. : I performed a history and examination of this patient, discussed the same with the dictator. I agree with the dictator's note ,documented as a scribe. Any additional findings or plans will be noted.
[2018-08-15] MEDS: LEVOFLOXACIN 500MG-D5W PMX 500 MG in DEXTROSE/WATER 1 100ML.BAG IVPB SCH (23:40)
[2018-08-16] MEDS: HEPARIN SODIUM,PORCINE 5,000 UNIT/ML 1 ML VIAL SQ SCH ×4 (01:14→23:08)
[2018-08-16] MEDS: metroNIDAZOLE-NS PMX 500 MG in SALINE 1 100ML.BAG IVPB SCH ×4 (01:14→21:24)
[2018-08-16] MEDS: SODIUM CHLORIDE 0.9% 1,000 ML IV SCH ×2 (06:52→15:41)
[2018-08-16] MEDS: ONDANSETRON 4 MG/2 ML VIAL IVP PRN (06:52)
--- NOTE | 2018-08-16 08:19 | P.PN ---
Subjective Progress Note Date: 08/16/18 Principal diagnosis: Pericolonic abscess Patient feels better today. No further nausea or vomiting. He is hoping to go home today. He is afebrile. Drain output decreased. Objective - Vital Signs Vital signs: Vital Signs Temp 98.2 F 08/16/18 00:59 Pulse 64 08/16/18 00:59 Resp 16 08/16/18 01:35 BP 140/77 08/16/18 00:59 Pulse Ox 94 L 08/16/18 00:59 Intake & Output 08/15/18 08/16/18 08/16/18 18:59 06:59 18:59 Intake Total 1180 1980 Output Total 26 Balance 1180 1954 Intake: Intake, IV Titration 800 900 Amount Levofloxacin 500Mg-D5w 100 Pmx 500 mg In Dextrose/ Water 1 100ml.bag @ 100 mls/hr IVPB Q24H JARAD Rx#: [id number] Sodium Chloride 0.9% 1, 700 600 000 ml @ 100 mls/hr IV . Q10H JARAD Rx#:[id number] metroNIDAZOLE-NS PMX 500 100 200 mg In Saline 1 100ml.bag @ 100 mls/hr IVPB Q8H JARAD Rx#:[id number] Oral 380 1080 Output: Drainage 25 Left Abdomen 25 Urine/Stool Mix 1 Other: Voiding Method Toilet Toilet # Voids 1 - Exam Abdomen: Soft, nondistended, mild tenderness at drain site - Labs CBC & Chem 7: 08/15/18 07:27 08/15/18 07:27 Labs: Microbiology - Last 24 Hours (Table) 08/12/18 16:14 Blood Culture - Preliminary Blood No Growth after 72 hours 08/14/18 13:45 Gram Stain - Preliminary Aspirate Body Fluid Culture - Preliminary Beta Hemolytic Strep Group G Assessment and Plan (1) Pericolonic abscess due to diverticulitis Narrative/Plan: Continue antibiotics. Keep drain for now. Await infectious disease opinion regarding duration of antibiotics Current Visit: Yes Status: Acute Code(s): K57.20 - DVTRCLI OF LG INT W PERFORATION AND ABSCESS W/O BLEEDING SNOMED Code(s): 193093377
[2018-08-16 09:14] LABS: ALT 36 U/L (21-72); AST 38 U/L (17-59); Albumin 2.8 g/dL (3.5-5.0); Alkaline Phosphatase 211 U/L (38-126); Anion Gap 6 mmol/L; Blood Urea Nitrogen 10 mg/dL (9-20); Calcium 7.9 mg/dL (8.4-10.2); Carbon Dioxide 24 mmol/L (22-30); Chloride 110 mmol/L (98-107); Glucose 92 mg/dL (74-99); Sodium 140 mmol/L (137-145); Total Bilirubin 0.8 mg/dL (0.2-1.3)
[2018-08-16 09:31] LABS: Basophils % (A) 0 %; Eosinophils # (A) 0.1 k/uL (0-0.7); Eosinophils % (A) 1 %; HGB 13.3 gm/dL (13.0-17.5); Lymphocytes % (A) 29 %; MCH 31.1 pg (25.0-35.0); MCV 91.7 fL (80.0-100.0); Mean Platelet Volume 7.9; Monocytes # (A) 0.4 k/uL (0-1.0); Monocytes % (A) 6 %; Neutrophils # (A) 4.3 k/uL (1.3-7.7); Neutrophils % (A) 62 %; Platelet Count 183 k/uL (150-450); RBC 4.26 m/uL (4.30-5.90); RDW 12.4 % (11.5-15.5); WBC 6.9 k/uL (3.8-10.6)
[2018-08-16] MEDS: cefTRIAXone 2,000 MG in SODIUM CHLORIDE 0.9% 100 ML IVPB SCH (15:41)
--- NOTE | 2018-08-16 16:13 | PN ---
PROGRESS NOTE DATE OF SERVICE: 08/16/2018. REASON FOR CONSULTATION: Abdominal abscess. HISTORY OF PRESENT ILLNESS: The patient is a 62-year-old, male presenting to the ER at [facility] on August 12, 2018, 5 days ago with chief complaints of abdominal pain. The patient did say that his abdominal pain has been going on for more than a week which he initially thought he may have pulled a muscle as he was trying to help his daughter put on some low ceiling. The patient's pain persisted and mostly on the left side abdominal area, patient's pain described to be more of a dull aching pain that has gradually increased in intensity, almost 7 to 8/10, and no radiation. The patient has felt nauseated but no vomiting and also been complaining of rigors and chills with it and has been complaining of some loose stool but did have a history of constipation. With these symptoms, the patient was evaluated by the ER physician. On arrival to the ER, the patient did have a fever of 101 degrees Fahrenheit with another fever of 101.4 on 08/14/2018. The patient did have a normal white count, though and liver enzymes minimally elevated. Urine was negative. Influenza A and B were negative. The patient did have a CT of the abdomen and pelvis completed which shows pericolonic abscess located between the splenic flexure measuring 4.7 cm, likely sequelae of diverticulitis and splenomegaly. The patient did have a CT-guided drainage of this abscess done on 08/14/2018. Cultures are currently showing a beta-hemolytic group G strep. The patient has been treated with Levaquin and Flagyl. I was asked to see the patient today for further recommendation regarding antibiotic therapy. REVIEW OF SYSTEMS: CONSTITUTIONAL: Positive for weakness along with chills. Eyes: No complaint. ENT no complaint. Respiratory: No complaint. Cardiovascular no complaint. Genitourinary no complaint. Gastrointestinal: As per HPI. Musculoskeletal: No complaint. Integumentary: No complaint. Psychological: No complaint. Endocrine: No complaint. Neurological: No complaint. PAST MEDICAL HISTORY: Chronic hepatitis C, psoriasis. PAST SURGICAL HISTORY: Nasal surgery. SOCIAL HISTORY: Positive for smoking every about a pack a day. History of marijuana use. No drinking though. FAMILY HISTORY: No pertinent findings noticed. ALLERGIES: No known drug allergies. MEDICATION: Currently include the patient is on Levaquin 500 daily in addition to the Flagyl 500 q8, Tylenol, heparin, morphine sulfate, Narcan and Zofran. PHYSICAL EXAMINATION: Blood pressure is 140/77 with a pulse of 74, temperature 98.2. He is 94% on room air. General description: The patient is a middle-aged male up in the chair in no distress. No tachypnea or accessory muscles of respiration use. HEENT: Shows no pallor or scleral icterus. Oral mucosa membranes are dry. No pharyngeal erythema or thrush. NECK: Trachea central. No thyromegaly. Lungs unlabored breathing. Clear to auscultation anteriorly. No wheeze or crackles. Heart S1, S2. Regular rate and rhythm. ABDOMEN: Soft, mildly tender, left lower quadrant. No guarding. No rigidity. No organomegaly. EXTREMITIES: No edema of the feet. Skin examination: No rash or mass palpable. Neurological: Patient is awake, alert, oriented x3. Mood and affect normal. LABS: Hemoglobin 13.2, white count 6.8 with a BUN of 10, creatinine 0.82. UA has been negative. The abdominal abscess culture with group B strep and aerobic culture currently pending. Blood cultures so far negative. DIAGNOSTIC IMPRESSION AND PLAN: Patient admitted to the hospital with abdominal abscess more likely secondary to diverticulitis, status post CT-guided drainage. Culture grew Group B strep, which is usually sensitive to ceftriaxone, cephalosporin with no evidence of any other resistant gram negative bacterial area. PLAN: 1. Discontinue Levaquin. 2. Start the patient on Rocephin 2 g daily. 3. Continue Flagyl 500 every 8 hours. 4. Depending on clinical response, will determine discharge antibiotic which could be more likely IV for short duration in view of his extensive infection with abscess formation. 5. Continue supportive care. MMODL / IJN: [id number] /
--- NOTE | 2018-08-16 17:34 | P.PN ---
Subjective Progress Note Date: 08/16/18 Progress note being dictated for Dr. Watt. Interval history:Patient is admitted for left pericolonic abscess patient will undergo pressure evaluated drainage. 08/15/2018 maintained on Levaquin and Flagyl. T-max 101.4. Aspirated culture reporting beta-hemolytic strep group G. Pain currently controlled. Minimal ambulation, within room. Complains of nausea, no emesis. No bowel movement, no flatus passed today. 08/16/2018 feels better today, passing flatus, bowel movement last night. Fevers have subsided. Drainage desreased. Tolerating diet with no nausea or vomiting. Evaluated by infectious disease, Rocephin added to med regime in addition to Flagyl with Levaquin discontinued. Objective - Vital Signs Vital signs: Vital Signs Temp 97.9 F 08/16/18 15:12 Pulse 58 L 08/16/18 15:12 Resp 17 08/16/18 15:12 BP 125/78 08/16/18 15:12 Pulse Ox 97 08/16/18 15:12 Intake & Output 08/15/18 08/16/18 08/16/18 18:59 06:59 18:59 Intake Total 1180 1980 700 Output Total 26 Balance 1180 1954 700 Intake: Intake, IV Titration 800 900 700 Amount Levofloxacin 500Mg-D5w 100 Pmx 500 mg In Dextrose/ Water 1 100ml.bag @ 100 mls/hr IVPB Q24H JARAD Rx#: [id number] Sodium Chloride 0.9% 1, 700 600 600 000 ml @ 100 mls/hr IV . Q10H JARAD Rx#:[id number] metroNIDAZOLE-NS PMX 500 100 200 100 mg In Saline 1 100ml.bag @ 100 mls/hr IVPB Q8H JARAD Rx#:[id number] Oral 380 1080 Output: Drainage 25 Left Abdomen 25 Urine/Stool Mix 1 Other: Voiding Method Toilet Toilet # Voids 1 - Exam GENERAL: Sitting up in chair, alert and oriented x3, no acute distress. HEENT: Pupils are round and equally reacting to light. EOMI. No scleral icterus. No conjunctival pallor. Normocephalic, atraumatic. CARDIOVASCULAR: S1 and S2 present. No murmurs, rubs, or gallops. PULMONARY: Chest is clear to auscultation, no wheezing or crackles. ABDOMEN: Soft, nondistended, left lower quadrant tenderness, positive bowel sounds, no guarding MUSCULOSKELETAL: No joint swelling or deformity. EXTREMITIES: No cyanosis, clubbing, or pedal edema. NEUROLOGICAL: Gross neurological examination did not reveal any focal deficits. SKIN: No rashes. Microbiology 08/12/18 16:14 Blood Blood Culture - Preliminary No Growth after 72 hours 08/14/18 13:45 Aspirate Gram Stain - Preliminary 08/14/18 13:45 Aspirate Body Fluid Culture - Preliminary Beta Hemolytic Strep Group G 08/14/18 13:45 Aspirate Anaerobic Culture - Preliminary 08/12/18 16:14 Urine,Voided Urine Culture - Final - Labs CBC & Chem 7: 08/16/18 06:45 08/16/18 06:45 Labs: Abnormal Lab Results - Last 24 Hours (Table) 08/16/18 08/16/18 Range/Units 06:45 06:45 RBC 4.26 L (4.30-5.90) m/uL Chloride 110 H (98-107) mmol/L Calcium 7.9 L (8.4-10.2) mg/dL Alkaline Phosphatase 211 H (38-126) U/L Total Protein 6.0 L (6.3-8.2) g/dL Albumin 2.8 L (3.5-5.0) g/dL Microbiology - Last 24 Hours (Table) 08/12/18 16:14 Blood Culture - Preliminary Blood No Growth after 72 hours Assessment and Plan Assessment: -Diverticulitis and pericolonic abscess, status post drainage, beta-hemolytic strep group G. -Sepsis secondary to intra abdominal abscess -Nicotine abuse -History of hepatitis viral,C & B , OP f/U with GI Plan: Continue on current medication regime ,monitoring and symptomatic treatment. Evaluated by infectious disease, IV antibiotics adjusted. Discharge planning in progress pending clinical response. Aggressive pulmonary toileting with incentive spirometer reinforced-patient has been declining. Increase ambulation as tolerated. The impression and plan of care has been dictated as directed. : I performed a history and examination of this patient, discussed the same with the dictator. I agree with the dictator's note ,documented as a scribe. Any additional findings or plans will be noted.
[2018-08-17] MEDS: SODIUM CHLORIDE 0.9% 1,000 ML IV SCH ×3 (04:14→20:13)
[2018-08-17] MEDS: metroNIDAZOLE-NS PMX 500 MG in SALINE 1 100ML.BAG IVPB SCH ×3 (06:02→21:48)
[2018-08-17] MEDS: HEPARIN SODIUM,PORCINE 5,000 UNIT/ML 1 ML VIAL SQ SCH ×2 (08:05→15:56)
[2018-08-17] MEDS: cefTRIAXone 2,000 MG in SODIUM CHLORIDE 0.9% 100 ML IVPB SCH (08:06)
[2018-08-17 11:19] LABS: Basophils % (A) 1 %; Eosinophils # (A) 0.1 k/uL (0-0.7); Eosinophils % (A) 1 %; HCT 43.7 % (39.0-53.0); HGB 14.5 gm/dL (13.0-17.5); Lymphocytes % (A) 27 %; MCH 30.1 pg (25.0-35.0); MCHC 33.1 g/dL (31.0-37.0); MCV 90.9 fL (80.0-100.0); Mean Platelet Volume 6.5; Monocytes # (A) 0.3 k/uL (0-1.0); Monocytes % (A) 3 %; Neutrophils # (A) 4.9 k/uL (1.3-7.7); Neutrophils % (A) 66 %; Platelet Count 272 k/uL (150-450); RDW 12.3 % (11.5-15.5); WBC 7.5 k/uL (3.8-10.6)
[2018-08-17 11:39] LABS: Anion Gap 10 mmol/L; Blood Urea Nitrogen 9 mg/dL (9-20); Calcium 8.8 mg/dL (8.4-10.2); Carbon Dioxide 20 mmol/L (22-30); Chloride 111 mmol/L (98-107); Glucose 106 mg/dL (74-99); Potassium 4.1 mmol/L (3.5-5.1); Sodium 141 mmol/L (137-145)
--- NOTE | 2018-08-17 16:14 | P.PN ---
Subjective Progress Note Date: 08/17/18 Principal diagnosis: Pericolonic abscess Patient doing well today. PICC line was placed today for home antibiotics. Patient is being scheduled for discharge apparently tomorrow. Minimal complaints of discomfort. Objective - Vital Signs Vital signs: Vital Signs Temp 98.1 F 08/17/18 07:59 Pulse 59 L 08/17/18 14:52 Resp 16 08/17/18 14:52 BP 151/74 08/17/18 07:59 Pulse Ox 98 08/17/18 07:59 Intake & Output 08/16/18 08/17/18 08/17/18 18:59 06:59 18:59 Intake Total 700 2730 900 Output Total 15 20 Balance 700 2715 880 Intake: Intake, IV Titration 700 1110 900 Amount Sodium Chloride 0.9% 1, 600 910 700 000 ml @ 100 mls/hr IV . Q10H JARAD Rx#:[id number] cefTRIAXone 2,000 mg In 100 Sodium Chloride 0.9% 100 ml @ 100 mls/hr IVPB Q24HR JARAD Rx#:[id number] metroNIDAZOLE-NS PMX 500 100 200 100 mg In Saline 1 100ml.bag @ 100 mls/hr IVPB Q8H JARAD Rx#:[id number] Oral 1620 Output: Drainage 15 20 Left Abdomen 15 20 Other: Voiding Method Toilet # Voids 1 - Exam Abdomen: Soft, nondistended, mild tenderness at drain site - Labs CBC & Chem 7: 08/17/18 10:50 08/17/18 10:50 Labs: Abnormal Lab Results - Last 24 Hours (Table) 08/17/18 Range/Units 10:50 Chloride 111 H (98-107) mmol/L Carbon Dioxide 20 L (22-30) mmol/L Glucose 106 H (74-99) mg/dL Microbiology - Last 24 Hours (Table) 08/14/18 13:45 Anaerobic Culture - Preliminary Aspirate Anaerobic Gm Negative Bacilli 08/14/18 13:45 Gram Stain - Final Aspirate Body Fluid Culture - Final Beta Hemolytic Strep Group G 08/12/18 16:14 Blood Culture - Preliminary Blood No Growth after 96 hours Assessment and Plan (1) Pericolonic abscess due to diverticulitis Narrative/Plan: Continue antibiotics. Repeat CAT scan Tuesday. Anticipate drain removal at that time. Current Visit: Yes Status: Acute Code(s): K57.20 - DVTRCLI OF LG INT W PERFORATION AND ABSCESS W/O BLEEDING SNOMED Code(s): 186007144
--- NOTE | 2018-08-17 22:59 | PN ---
PROGRESS NOTE DATE OF SERVICE: 08/17/2018 REASON FOR FOLLOWUP: Peridiverticular abscess. INTERVAL HISTORY: The patient is afebrile. He has been breathing comfortably. Denies having any chest pain or shortness of breath or cough. His initial abdominal pain has improved. The only pain he has is from insertion of the drainage catheter. Overall output has decreased. No nausea, no vomiting and no diarrhea. PHYSICAL EXAMINATION: Blood pressure 135/72 with a pulse of 61, temperature 98.1. He is 97% on room air. General description is a middle-aged male lying in bed in no distress. RESPIRATORY SYSTEM: Unlabored breathing. Clear to auscultation anteriorly. HEART: S1, S2. Regular rate and rhythm. ABDOMEN: Soft. No tenderness. Drainage catheter with minimal purulent secretions. LABS: Hemoglobin is 14.5, white count 7.5 with a BUN of 9, creatinine 0.75. DIAGNOSTIC IMPRESSION AND PLAN: Patient with a peridiverticular abscess, status post CT-guided drainage. Culture has been positive for beta-hemolytic group G streptococcus and anaerobic gram-negative bacilli. Patient is currently on Rocephin 2 grams daily. That will be continued in the outpatient setting for at least 2 weeks. In addition, oral Flagyl 500 mg 3 times a day for the same duration. Once the antibiotics are arranged, he should be able to go home from an infectious disease standpoint. Continue supportive care. MMODL / IJN: [id number] /
[2018-08-18] MEDS: HEPARIN SODIUM,PORCINE 5,000 UNIT/ML 1 ML VIAL SQ SCH ×2 (00:40→13:12)
[2018-08-18] MEDS: metroNIDAZOLE-NS PMX 500 MG in SALINE 1 100ML.BAG IVPB SCH (05:47)
[2018-08-18 08:47] VITALS: BP 152/84; PULSE 60; RESP 16; TEMP 98.4
--- NOTE | 2018-08-18 09:26 | P.PN ---
Subjective Progress Note Date: 08/18/18 Principal diagnosis: Pericolonic abscess Patient doing well today. Denies pain. Anxious to go home. No fevers. Minimal drain output. Objective - Vital Signs Vital signs: Vital Signs Temp 98.4 F 08/18/18 07:45 Pulse 60 08/18/18 07:45 Resp 16 08/18/18 07:45 BP 152/84 08/18/18 07:45 Pulse Ox 96 08/18/18 07:45 Intake & Output 08/17/18 08/18/18 08/18/18 18:59 06:59 18:59 Intake Total 1100 2280 Output Total 20 0 0 Balance 1080 2280 0 Intake: Intake, IV Titration 900 1200 Amount Sodium Chloride 0.9% 1, 700 1000 000 ml @ 100 mls/hr IV . Q10H JARAD Rx#:[id number] cefTRIAXone 2,000 mg In 100 Sodium Chloride 0.9% 100 ml @ 100 mls/hr IVPB Q24HR JARAD Rx#:[id number] metroNIDAZOLE-NS PMX 500 100 200 mg In Saline 1 100ml.bag @ 100 mls/hr IVPB Q8H JARAD Rx#:[id number] Oral 200 1080 Output: Drainage 20 0 0 Left Abdomen 20 0 0 Other: Voiding Method Toilet Toilet Toilet # Voids 2 - Exam Abdomen: Soft, nondistended, mild tenderness at drain site - Labs CBC & Chem 7: 08/17/18 10:50 08/17/18 10:50 Labs: Abnormal Lab Results - Last 24 Hours (Table) 08/17/18 Range/Units 10:50 Chloride 111 H (98-107) mmol/L Carbon Dioxide 20 L (22-30) mmol/L Glucose 106 H (74-99) mg/dL Microbiology - Last 24 Hours (Table) 08/12/18 16:14 Blood Culture - Preliminary Blood No Growth after 120 hours 08/14/18 13:45 Anaerobic Culture - Preliminary Aspirate Anaerobic Gm Negative Bacilli 08/14/18 13:45 Gram Stain - Final Aspirate Body Fluid Culture - Final Beta Hemolytic Strep Group G Assessment and Plan (1) Pericolonic abscess due to diverticulitis Narrative/Plan: Anticipate discharge today. Follow-up CAT scan scheduled for next Tuesday. Likely remove drain at that time. Antibiotics per infectious disease. Current Visit: Yes Status: Acute Code(s): K57.20 - DVTRCLI OF LG INT W PERFORATION AND ABSCESS W/O BLEEDING SNOMED Code(s): 884152847
[2018-08-18] MEDS: cefTRIAXone 2,000 MG in SODIUM CHLORIDE 0.9% 100 ML IVPB SCH (09:55)
--- NOTE | 2018-08-18 12:46 | P.PN ---
Subjective Progress Note Date: 08/17/18 Progress note being dictated for Dr. Watt. Interval history:Patient is admitted for left pericolonic abscess patient will undergo pressure evaluated drainage. 08/15/2018 maintained on Levaquin and Flagyl. T-max 101.4. Aspirated culture reporting beta-hemolytic strep group G. Pain currently controlled. Minimal ambulation, within room. Complains of nausea, no emesis. No bowel movement, no flatus passed today. 08/16/2018 feels better today, passing flatus, bowel movement last night. Fevers have subsided. Drainage desreased. Tolerating diet with no nausea or vomiting. Evaluated by infectious disease, Rocephin added to med regime in addition to Flagyl with Levaquin discontinued. 08/17/2018 denies abdominal pain. Good diet intake with no nausea or vomiting. Catheter drainage decreased. Maintained on IV antibiotics of Rocephin, Flagyl. PICC line placed. Afebrile. Objective - Vital Signs Vital signs: Vital Signs Temp 98.1 F 08/17/18 17:39 Pulse 61 08/17/18 17:39 Resp 16 08/17/18 14:52 BP 135/72 08/17/18 17:39 Pulse Ox 97 08/17/18 17:39 Intake & Output 08/17/18 08/17/18 08/18/18 06:59 18:59 06:59 Intake Total 2730 1100 Output Total 15 20 Balance 2715 1080 Intake: Intake, IV Titration 1110 900 Amount Sodium Chloride 0.9% 1, 910 700 000 ml @ 100 mls/hr IV . Q10H JARAD Rx#:[id number] cefTRIAXone 2,000 mg In 100 Sodium Chloride 0.9% 100 ml @ 100 mls/hr IVPB Q24HR JARAD Rx#:[id number] metroNIDAZOLE-NS PMX 500 200 100 mg In Saline 1 100ml.bag @ 100 mls/hr IVPB Q8H JARAD Rx#:[id number] Oral 1620 200 Output: Drainage 15 20 Left Abdomen 15 20 Other: Voiding Method Toilet # Voids 1 - Exam GENERAL: Sitting up in chair, alert and oriented x3, no acute distress. HEENT: Pupils are round and equally reacting to light. EOMI. No scleral icterus. No conjunctival pallor. Normocephalic, atraumatic. CARDIOVASCULAR: S1 and S2 present. No murmurs, rubs, or gallops. PULMONARY: Chest is clear to auscultation, no wheezing or crackles. ABDOMEN: Soft, nondistended, drain present with minimal tenderness positive bowel sounds, no guarding MUSCULOSKELETAL: No joint swelling or deformity. EXTREMITIES: No cyanosis, clubbing, or pedal edema. NEUROLOGICAL: Gross neurological examination did not reveal any focal deficits. SKIN: No rashes. Microbiology 08/12/18 16:14 Blood Blood Culture - Preliminary No Growth after 120 hours 08/14/18 13:45 Aspirate Anaerobic Culture - Preliminary Anaerobic Gm Negative Bacilli 08/14/18 13:45 Aspirate Gram Stain - Final 08/14/18 13:45 Aspirate Body Fluid Culture - Final Beta Hemolytic Strep Group G 08/12/18 16:14 Urine,Voided Urine Culture - Final - Labs CBC & Chem 7: 08/17/18 10:50 08/17/18 10:50 Labs: Abnormal Lab Results - Last 24 Hours (Table) 08/17/18 Range/Units 10:50 Chloride 111 H (98-107) mmol/L Carbon Dioxide 20 L (22-30) mmol/L Glucose 106 H (74-99) mg/dL Microbiology - Last 24 Hours (Table) 08/14/18 13:45 Anaerobic Culture - Preliminary Aspirate Anaerobic Gm Negative Bacilli 08/14/18 13:45 Gram Stain - Final Aspirate Body Fluid Culture - Final Beta Hemolytic Strep Group G 08/12/18 16:14 Blood Culture - Preliminary Blood No Growth after 96 hours Assessment and Plan Assessment: -Diverticulitis and pericolonic abscess, status post drainage, beta-hemolytic strep group G, anaerobic gram-negative bacilli. -Sepsis secondary to intra abdominal abscess -Nicotine abuse -History of hepatitis viral,C & B , OP f/U with GI Plan: Continue on current medication regime ,monitoring and symptomatic treatment. PICC line placed,Discharge planning in progress pending IV antibiotic arrangements as per case management.Aggressive pulmonary toileting with incentive spirometer. Increase ambulation as tolerated. The impression and plan of care has been dictated as directed. : I performed a history and examination of this patient, discussed the same with the dictator. I agree with the dictator's note ,documented as a scribe. Any additional findings or plans will be noted.
--- NOTE | 2018-08-18 12:55 | P.DS ---
Providers Date of admission: 08/12/18 20:49 Expected date of discharge: 08/18/18 Attending physician: Ofe Watt Consults: 08/12/18 20:50 Consult Physician Routine Consulting Provider: Lobo Torrez Consult Reason/Comments: Pericolonic abscess Do you want consulting provider notified?: Already Contacted 08/15/18 18:15 Consult Physician Routine Consulting Provider: Matthieu Dangelo Consult Reason/Comments: BetaHemolytic aspirate Do you want consulting provider notified?: Yes Primary care physician: Stated None Hospital Course: Final Diagnoses: -Diverticulitis and pericolonic abscess, status post drainage, beta-hemolytic strep group G, anaerobic gram-negative bacilli. -Sepsis secondary to intra abdominal abscess -Nicotine abuse -History of hepatitis viral,C & B , OP f/U with GI Hospital course:Patient admitted for left pericolonic abscess, evaluated by surgery. Underwent CT-guided abscess drainage with interventional radiology. Evaluated by infectious disease.Maintained on IV antibiotics for beta-hemolytic strep group G, anaerobic gram-negative bacilli. Significant clinical improvement. PICC line placed. Drain maintained with follow-up CAT scan Tuesday. Patient has been cleared by all consults for discharge. Patient is being discharged home in a stable condition with guarded prognosis. - Exam GENERAL: Sitting up in chair, alert and oriented x3, no acute distress. CARDIOVASCULAR: S1 and S2 present. No murmurs, rubs, or gallops. PULMONARY: Chest is clear to auscultation, no wheezing or crackles. ABDOMEN: Soft, nondistended, drain present with minimal tenderness positive bowel sounds, NEUROLOGICAL: Gross neurological examination did not reveal any focal deficits. The impression and plan of care has been dictated as directed. : I performed a history and examination of this patient, discussed the same with the dictator. I agree with the dictator's note ,documented as a scribe. Any additional findings or plans will be noted. Time taken: 35 minutes Patient Condition at Discharge: Stable Plan - Discharge Summary Discharge Rx Participant: No New Discharge Prescriptions: New cefTRIAXone [Rocephin] 2,000 mg IVPB Q24HR #14 vial metroNIDAZOLE [Flagyl] 500 mg PO TID #42 tab Acetaminophen Tab [Tylenol] 650 mg PO Q6HR PRN tab PRN Reason: Fever And/ Or Pain Pantoprazole Sodium [Protonix] 40 mg PO DAILY #30 tablet. Discharge Medication List cefTRIAXone [Rocephin] 2,000 mg IVPB Q24HR #14 vial 08/17/18 [Rx] metroNIDAZOLE [Flagyl] 500 mg PO TID #42 tab 08/17/18 [Rx] Acetaminophen Tab [Tylenol] 650 mg PO Q6HR PRN tab 08/18/18 [Rx] Pantoprazole Sodium [Protonix] 40 mg PO DAILY #30 tablet. 08/18/18 [Rx] Follow up Appointment(s)/Referral(s): Lobo Torrez MD [Medical Doctor] - 1 Week Eliud Sanchez DO [REFERRING] - 3 Days [facility] [NON-STAFF] - As Needed Matthieu Dangelo MD [STAFF PHYSICIAN] - 1 Week Manny Meng MD [STAFF PHYSICIAN] - 2 Weeks (hx of hepatitis B & C) Ambulatory/Diagnostic Orders: Complete Blood Count w/diff [LAB.AMB] Time Frame: 3 Days, Location: None Selected Activity/Diet/Wound Care/Special Instructions: Wound Care/drain as per surgery. Repeat CT Tuesday as per Surgery.
[2018-08-18] MEDS: SODIUM CHLORIDE 0.9% 1,000 ML IV SCH (13:11)
--- NOTE | 2018-08-18 14:06 | PN ---
PROGRESS NOTE DATE OF SERVICE: 08/18/2018. REASON FOR FOLLOW UP: Abdominal abscess. INTERVAL HISTORY: The patient is currently afebrile. He is breathing comfortably. His abdominal pain is currently controlled. Denies having any chest pain, shortness of breath or cough. No nausea, vomiting. No diarrhea. Tolerating a regular diet and wants to get out of the hospital. PHYSICAL EXAMINATION: Blood pressure 152/84 with a pulse of 68, temperature 98.4. He is 96% on room air. General description is a middle-aged male up in the room in no distress. RESPIRATORY SYSTEM: Unlabored breathing, clear to auscultation anteriorly. HEART: S1, S2. Regular rate and rhythm. ABDOMEN: Soft, no tenderness. LABS: The hemoglobin is 14.4, white count 7.5, creatinine 0.75. Abdominal culture, Bacteroides fragilis and beta-hemolytic strep. DIAGNOSTIC IMPRESSION AND PLAN: Patient with a diverticular abscess, status post drainage. Patient to continue with Rocephin 2 g daily for along with Flagyl 500 mg p.o. q.8 hours for 2 weeks. He will have a repeat CT on Tuesday. Will follow results. Continue supportive care. MMODL / IJN: [id number] /
== END 2018-08-18 13:54 | disposition home health service (06) | DRG 872 ==
LOC: EC 15:18 → 4SSUR 20:49
PROVIDERS: ADMIT Hospitalist; ATTEND Hospitalist
PROC: 0W9G30Z Drainage of Peritoneal Cavity with Drainage Device, Percutaneous Approach (ICD-10-PCS; 2018-08-14)
PROC: 05HF33Z Insertion of Infusion Device into Left Cephalic Vein, Percutaneous Approach (ICD-10-PCS; principal; 2018-08-17 14:50)
DX: A40.8 Other streptococcal sepsis (principal); K57.20 Diverticulitis of large intestine with perforation and abscess without bleeding; B19.10 Unspecified viral hepatitis B without hepatic coma; B18.2 Chronic viral hepatitis C; F17.200 Nicotine dependence, unspecified, uncomplicated; L40.9 Psoriasis, unspecified; R16.1 Splenomegaly, not elsewhere classified; Z71.6 Tobacco abuse counseling
CPT/HCPCS: 36415; 36569; 71046; 74177; 75989; 80048; 80053; 81003; 83605; 83690; 84484; 85025; 85027; 85610; 85730; 87040; 87070; 87075; 87077; 87086; 87186; 87205; 87502; 93005; 96365; 96375; 99285

== ENCOUNTER → 2018-08-21 | Outpatient (CLI) | payer BC ==
[2018-08-21 07:42] LABS: HCT 44.4 % (39.0-53.0); HGB 14.6 gm/dL (13.0-17.5); MCV 90.9 fL (80.0-100.0); Mean Platelet Volume 6.6; Platelet Count 297 k/uL (150-450); RBC 4.88 m/uL (4.30-5.90); RDW 12.9 % (11.5-15.5); WBC 8.6 k/uL (3.8-10.6)
[2018-08-21 07:54] LABS: Anion Gap 8 mmol/L; Blood Urea Nitrogen 14 mg/dL (9-20); Calcium 8.9 mg/dL (8.4-10.2); Carbon Dioxide 23 mmol/L (22-30); Chloride 109 mmol/L (98-107); Glucose 114 mg/dL (74-99); Sodium 140 mmol/L (137-145)
--- NOTE | 2018-08-21 10:02 | CT ---
EXAMINATION TYPE: CT abdomen pelvis w con DATE OF EXAM: 08/21/2018 COMPARISON: Prior CT abdomen pelvis 08/12/2018 HISTORY: Diverticulitis of large intestine with perforation CT DLP: 1139 mGycm Automated exposure control for dose reduction was used. TECHNIQUE: Helical acquisition of images from the lung bases through the pelvis have been completed. CONTRAST: Performed with Oral Contrast and with IV Contrast, patient injected with 100 mL of Isovue 300. FINDINGS: The left-sided abscess drainage catheter remains in place, there is no residual abscess pre sent, some minimal inflammatory changes present at the site. LUNG BASES: Suspect calcified granuloma at the left lung base, some minimal dependent atelectatic aron nges are present, no pleural pericardial effusion AORTA: Stable LIVER/GB: Liver shows a nodular contour suggestive of underlying cirrhosis. Gallbladder is normal. PANCREAS: At the level of the distal common bile duct there is a soft tissue nodular appearance prese nt extending into the duodenum SPLEEN: Enlarged as on prior ADRENALS: No significant abnormality is seen. KIDNEYS: Large exophytic cyst is again noted extending from the lower pole the left kidney, no hydron ephrosis or renal stones bilaterally REPRODUCTIVE ORGANS: Prostate shows some central calcifications as on prior exam, measures 4.5 cm in transverse dimension BOWEL: Retained fecal debris present throughout the distribution of the colon, some focal thickening present within the colonic wall at the site of patient's previously identified abscess FREE AIR: No Free Air visible. ASCITES: None visible. PELVIC ADENOPATHY: None visualized. RETROPERITONEAL ADENOPATHY: No Retroperitoneal Adenopathy visible. URINARY BLADDER: Thickened wall may be due to chronic outlet obstruction OSSEOUS STRUCTURES: Stable, degenerative disc changes in the visualized spine with facet arthropathy . IMPRESSION: INTERVAL RESOLUTION OF PATIENT'S ABSCESS. THERE IS PERSISTENT INFLAMMATORY CHANGE SUSPECTED ALONG THE COLON WALL, INDETERMINATE WALL THICKENING, CONSIDER FOLLOW-UP ENDOSCOPY TO EXCLUDE ANNULAR MASS. COR RELATE FOR UNDERLYING CIRRHOSIS. SPLENOMEGALY. ABSCESS DRAINAGE CATHETER REMAINS IN PLACE DESCRIBE D, ADDITIONAL FINDINGS ABOVE.
[2018-08-21 11:14] VITALS: PULSE 74; RESP 16; TEMP 97.8
== END | disposition home or self-care (01) ==
LOC: RADCTMAIN 07:06
PROVIDERS: ATTEND Surgery
DX: K57.20 Diverticulitis of large intestine with perforation and abscess without bleeding (principal)
CPT/HCPCS: 80048; 85027; 99213; 74177; 36415; Q9967

== ENCOUNTER 2018-09-23 13:24 | Inpatient (IN) | payer MEDICARE, BC ==
[2018-09-23] MEDS ORDERED: SODIUM CHLORIDE 0.9% 1,000 ML IV STA (13:34)
[2018-09-23] MEDS ORDERED: ONDANSETRON 4 MG/2 ML VIAL IVP STA (13:38)
[2018-09-23] MEDS ORDERED: MORPHINE SULFATE 4 MG/ML SYRINGE IV STA (13:38)
--- NOTE | 2018-09-23 13:41 | ED ---
General Adult HPI - General Chief complaint: Abdominal Pain Stated complaint: Abd pain Time Seen by Provider: 09/23/18 13:33 Source: patient, RN notes reviewed, old records reviewed Mode of arrival: ambulatory Limitations: physical limitation - History of Present Illness Initial comments: Patient 62-year-old male presenting to the emergency room today with a chief complaint of left-sided abdominal pain that began 2 days ago. He describes it as sharp pain. Currently rates an 8/10. States located in the upper arm of the left side of the abdomen. Patient does admit the pain reminds him of pain that he had recently 5 weeks ago when he had an abscess that required a train to be placed. He does admit that he called the surgeon yesterday advised that he should come to the hospital. Patient denies any other complaints currently. Patient denies any recent fever, chills, shortness of breath, chest pain, back pain, headaches or visual changes, or any other complaints. - Related Data Previous Rx's Medication Instructions Recorded cefTRIAXone [Rocephin] 2,000 mg IVPB Q24HR #14 vial 08/17/18 metroNIDAZOLE [Flagyl] 500 mg PO TID #42 tab 08/17/18 Acetaminophen Tab [Tylenol] 650 mg PO Q6HR PRN tab 08/18/18 Pantoprazole Sodium [Protonix] 40 mg PO DAILY #30 tablet. 08/18/18 Allergies Allergy/AdvReac Type Severity Reaction Status Date / Time No Known Allergies Allergy Verified 09/23/18 13:30 Review of Systems ROS Statement: Those systems with pertinent positive or pertinent negative responses have been documented in the HPI. ROS Other: All systems not noted in ROS Statement are negative. Past Medical History Additional Past Medical History / Comment(s): hepatitis C & B, psoriasis, skin disorder, bowel abcess History of Any Multi-Drug Resistant Organisms: None Reported Additional Past Surgical History / Comment(s): nasal surgery, abd surgery for abcess Past Psychological History: No Psychological Hx Reported Smoking Status: Current every day smoker Past Alcohol Use History: None Reported Past Drug Use History: Marijuana General Exam - General Exam Comments Initial Comments: General: The patient is awake and alert, in no distress, and does not appear acutely ill. Neck: The neck is supple Cardiovascular: There is a regular rate and rhythm. No murmur, rub or gallop is appreciated. Respiratory: Lungs are clear to auscultation, respirations are non-labored, breath sounds are equal. No wheezes, stridor, rales, or rhonchi. Gastrointestinal: Abdomen soft on palpation. There is tenderness in the left side both upper and lower quadrants. No rebound, guarding or CVA tenderness. Musculoskeletal: Normal ROM, no tenderness. Neurological: A&O x 3. CN II-XII intact, There are no obvious motor or sensory deficits. Coordination appears grossly intact. Speech is normal. Skin: Skin is warm and dry and no rashes or lesions are noted. Psychiatric: Cooperative, appropriate mood & affect, normal judgment. Limitations: physical limitation Course Vital Signs 09/23/18 09/23/18 13:26 14:17 Temperature 98.9 F 98.7 F Pulse Rate 119 H 97 Respiratory 18 18 Rate Blood Pressure 137/89 109/69 O2 Sat by Pulse 97 95 Oximetry Medical Decision Making - Medical Decision Making Patient resting comfortably. Findings likely represent a seizure colitis, difficult to exclude underlying mucosal abnormality, extensive inflammatory changes. Difficult to exclude possible microperforation. Patient does have elevated white count 23,000. Lactic acid negative. No fever here in the ER. Case discussed with attending physician Dr. Saldivar. Case was discussed with admitting physician Dr. Pryor who will admit the patient with consult to patient's surgeon Dr. Torrez. Patient started on antibiotics of Levaquin and Flagyl here in the emergency room. - Lab Data Result diagrams: 09/23/18 13:54 09/23/18 13:54 Lab Results 09/23/18 09/23/18 09/23/18 Range/Units 13:54 13:54 13:54 WBC 23.4 H (3.8-10.6) k/uL RBC 5.67 (4.30-5.90) m/uL Hgb 17.5 (13.0-17.5) gm/dL Hct 51.3 (39.0-53.0) % MCV 90.5 (80.0-100.0) fL MCH 30.9 (25.0-35.0) pg MCHC 34.1 (31.0-37.0) g/dL RDW 13.2 (11.5-15.5) % Plt Count 237 (150-450) k/uL Neutrophils % 86 % Lymphocytes % 8 % Monocytes % 5 % Eosinophils % 1 % Basophils % 0 % Neutrophils # 20.1 H (1.3-7.7) k/uL Lymphocytes # 1.8 (1.0-4.8) k/uL Monocytes # 1.2 H (0-1.0) k/uL Eosinophils # 0.1 (0-0.7) k/uL Basophils # 0.0 (0-0.2) k/uL PT (9.0-12.0) sec INR (<1.2) APTT (22.0-30.0) sec Sodium 139 (137-145) mmol/L Potassium 5.0 (3.5-5.1) mmol/L Chloride 108 H (98-107) mmol/L Carbon Dioxide 20 L (22-30) mmol/L Anion Gap 11 mmol/L BUN 21 H (9-20) mg/dL Creatinine 0.85 (0.66-1.25) mg/dL Est GFR (CKD-EPI)AfAm >90 (>60 ml/min/1.73 sqM) Est GFR (CKD-EPI)NonAf >90 (>60 ml/min/1.73 sqM) Glucose 142 H (74-99) mg/dL Plasma Lactic Acid Theodore 1.3 (0.7-2.0) mmol/L Calcium 9.5 (8.4-10.2) mg/dL Total Bilirubin 1.5 H (0.2-1.3) mg/dL AST 24 (17-59) U/L ALT 30 (21-72) U/L Alkaline Phosphatase 74 (38-126) U/L Total Protein 7.1 (6.3-8.2) g/dL Albumin 3.7 (3.5-5.0) g/dL Lipase 99 (23-300) U/L 09/23/18 Range/Units 13:54 WBC (3.8-10.6) k/uL RBC (4.30-5.90) m/uL Hgb (13.0-17.5) gm/dL Hct (39.0-53.0) % MCV (80.0-100.0) fL MCH (25.0-35.0) pg MCHC (31.0-37.0) g/dL RDW (11.5-15.5) % Plt Count (150-450) k/uL Neutrophils % % Lymphocytes % % Monocytes % % Eosinophils % % Basophils % % Neutrophils # (1.3-7.7) k/uL Lymphocytes # (1.0-4.8) k/uL Monocytes # (0-1.0) k/uL Eosinophils # (0-0.7) k/uL Basophils # (0-0.2) k/uL PT 10.5 (9.0-12.0) sec INR 1.0 (<1.2) APTT 25.6 (22.0-30.0) sec Sodium (137-145) mmol/L Potassium (3.5-5.1) mmol/L Chloride (98-107) mmol/L Carbon Dioxide (22-30) mmol/L Anion Gap mmol/L BUN (9-20) mg/dL Creatinine (0.66-1.25) mg/dL Est GFR (CKD-EPI)AfAm (>60 ml/min/1.73 sqM) Est GFR (CKD-EPI)NonAf (>60 ml/min/1.73 sqM) Glucose (74-99) mg/dL Plasma Lactic Acid Theodore (0.7-2.0) mmol/L Calcium (8.4-10.2) mg/dL Total Bilirubin (0.2-1.3) mg/dL AST (17-59) U/L ALT (21-72) U/L Alkaline Phosphatase (38-126) U/L Total Protein (6.3-8.2) g/dL Albumin (3.5-5.0) g/dL Lipase (23-300) U/L Disposition Clinical Impression: Colitis, Leukocytosis Disposition: ADMITTED IP TO THIS [facility] Condition: Good Is patient prescribed a controlled substance at d/c from ED?: No Referrals: Eliud Sanchez DO [Primary Care Provider] - 1-2 days
[2018-09-23 14:15] LABS: Partial Thromboplastin Time 25.6 sec (22.0-30.0); Prothrombin Time 10.5 sec (9.0-12.0)
[2018-09-23 14:17] LABS: ALT 30 U/L (21-72); AST 24 U/L (17-59); Albumin 3.7 g/dL (3.5-5.0); Alkaline Phosphatase 74 U/L (38-126); Anion Gap 11 mmol/L; Blood Urea Nitrogen 21 mg/dL (9-20); Calcium 9.5 mg/dL (8.4-10.2); Carbon Dioxide 20 mmol/L (22-30); Chloride 108 mmol/L (98-107); Glucose 142 mg/dL (74-99); Lipase 99 U/L (23-300); Sodium 139 mmol/L (137-145); Total Bilirubin 1.5 mg/dL (0.2-1.3); Total Protein 7.1 g/dL (6.3-8.2)
[2018-09-23 14:19] LABS: Basophils % (A) 0 %; Eosinophils # (A) 0.1 k/uL (0-0.7); Eosinophils % (A) 1 %; HCT 51.3 % (39.0-53.0); HGB 17.5 gm/dL (13.0-17.5); Lymphocytes # (A) 1.8 k/uL (1.0-4.8); Lymphocytes % (A) 8 %; MCH 30.9 pg (25.0-35.0); MCHC 34.1 g/dL (31.0-37.0); MCV 90.5 fL (80.0-100.0); Mean Platelet Volume 6.9; Monocytes # (A) 1.2 k/uL (0-1.0); Monocytes % (A) 5 %; Neutrophils # (A) 20.1 k/uL (1.3-7.7); Neutrophils % (A) 86 %; Platelet Count 237 k/uL (150-450); RBC 5.67 m/uL (4.30-5.90); RDW 13.2 % (11.5-15.5); WBC 23.4 k/uL (3.8-10.6)
--- NOTE | 2018-09-23 14:58 | CT ---
EXAMINATION TYPE: CT abdomen pelvis w con DATE OF EXAM: 09/23/2018 COMPARISON: Prior CT abdomen pelvis dated 08/21/2018 HISTORY: Left sided pain with history of abscess and drain tube placement CT DLP: 797.5 mGycm Automated exposure control for dose reduction was used. TECHNIQUE: Helical acquisition of images from the lung bases through the pelvis have been completed. CONTRAST: Performed without Oral Contrast and with IV Contrast, patient injected with 100 mL of Isovue 300. FINDINGS: LUNG BASES: There has been interval development of a small left effusion and associated atelectasis. AORTA: No significant abnormality is appreciated. LIVER/GB: No significant interval change is appreciated, nodular contour to the liver may be indicati ve of underlying cirrhosis. PANCREAS: No significant abnormality is seen. SPLEEN: No significant abnormality is seen. ADRENALS: No significant abnormality is seen. KIDNEYS: No significant interval change is seen, large exophytic cortical cyst present at the lower p ole of the left kidney. REPRODUCTIVE ORGANS: No significant change is seen, prostate calcifications are noted BOWEL: The previously identified drainage tube has been removed in interval. There is extensive infl ammatory change present along the distribution of the descending colon within the surrounding mesente becki fat, colon wall shows an abnormal appearance, difficult to exclude some local pneumatosis or micr operforation, no extraluminal air is identified however there is likely local phlegmon. Fluid is pres ent along the lateral conal fascia. FREE AIR: No Free Air visible. ASCITES: There is free fluid present within the pelvis and along the lateral gutters, about the sple en and liver which is minimal PELVIC ADENOPATHY: None visualized. RETROPERITONEAL ADENOPATHY: No Retroperitoneal Adenopathy visible. URINARY BLADDER: No significant abnormality is seen. OSSEOUS STRUCTURES: No significant abnormality is seen. IMPRESSION: FINDINGS LIKELY REPRESENT SEVERE COLITIS, DIFFICULT TO EXCLUDE UNDERLYING MUCOSAL ABNORMALITY, EXTENS KELI INFLAMMATORY CHANGES DESCRIBED, INTERVAL ASCITES HAS DEVELOPED, NEW SMALL LEFT PLEURAL EFFUSIO N. ADDITIONAL FINDINGS ABOVE.
[2018-09-23] MEDS ORDERED: metroNIDAZOLE-NS PMX 500 MG in SALINE 1 100ML.BAG IVPB STA (15:16)
[2018-09-23] MEDS ORDERED: LEVOFLOXACIN 500MG-D5W PMX 500 MG in DEXTROSE/WATER 1 100ML.BAG IVPB STA (15:16)
[2018-09-23] MEDS ORDERED: NALOXONE 0.4 MG/ML 1 ML VIAL IV PRN (15:20)
[2018-09-23] MEDS ORDERED: SODIUM CHLORIDE 0.9% 1,000 ML IV ONE (15:20)
[2018-09-23 15:23] LABS: Appearance,Urine Clear (Clear); Bilirubin,Urine Negative (Negative); Blood,Urine Negative (Negative); Color,Urine Yellow; Glucose,Urine (UA) Negative (Negative); Ketones,Urine Negative (Negative); Leukocyte Esterase,Urine Negative (Negative); Mucus,Urine Many /hpf; Nitrite,Urine Negative (Negative); Protein,Urine 1+ (Negative); RBC,Urine 3 /hpf (0-5)
[2018-09-23 15:25] LABS: Specific Gravity,Urine >1.050 (1.001-1.035)
[2018-09-23] MEDS ORDERED: LEVOFLOXACIN 500MG-D5W PMX 500 MG in DEXTROSE/WATER 1 100ML.BAG IVPB SCH (15:30)
--- NOTE | 2018-09-23 16:24 | P.HPIM ---
History of Present Illness H&P Date: 09/23/18 Chief Complaint: Abdominal pain Patient is a 62-year-old male with a known history of. Pericolic abscess in August [address]-guided drainage with drain tube and antibiotics, diverticulitis, hepatitis B, C and nicotine addiction quit 5 weeks ago came to ER with complaints of abdominal pain mainly left upper quadrant for the past 2 days. Pain is very sharp and stabbing type. Previously patient had dull pain as per patient. No radiation of pain. Patient says that his pain gets worse with movement. Patient called his surgeon yesterday and was advised to come to the hospital. Today morning patient had his breakfast and took a nap and suddenly woke up with stabbing pain. Patient also felt nauseated. No vomiting. Denied any fever or chills. No chest pain or shortness of breath. No complaints of back pain. Patient had last bowel movement 2 days ago. Patient is scheduled for colonoscopy on October 17. Patient was seen by Dr. Torrez CT of the abdominal pelvis showed findings likely represent severe colitis, difficult to exclude underlying mucosal abnormality, extensive inflammatory changes as described. Interval ascites has developed, no small left pleural effusion. WBC 23.4 and bilirubin 1.5 Review of Systems Constitutional: Patient denies any fever or chills . No generalized weakness or weight loss. Abdomen: Patient denied any vomiting. Patient did have nausea. Abdominal pain left upper quadrant. Patient does have constipation. Cardiovascular: Patient denies any chest pain or short of breath no palpitations. Respiratory: patient denied any cough is from production. No shortness of breath Neurologic: Patient denied any numbness or tingling headache. Musculoskeletal: Patient denies any complaints of joint swelling or deformity. Skin: Negative Psychiatric: Negative Endocrine: No heat or cold intolerance. No recent weight gain. Genitourinary: No dysuria or hematuria. All other 14 point ROS negative except the above Past Medical History Additional Past Medical History / Comment(s): hepatitis C & B, psoriasis, skin disorder, bowel abcess History of Any Multi-Drug Resistant Organisms: None Reported Additional Past Surgical History / Comment(s): nasal surgery, abd surgery for abcess Past Psychological History: No Psychological Hx Reported Smoking Status: Current every day smoker Past Alcohol Use History: None Reported Past Drug Use History: Marijuana Medications and Allergies Home Medications Medication Instructions Recorded Confirmed Type cefTRIAXone [Rocephin] 2,000 mg IVPB Q24HR #14 vial 08/17/18 Rx metroNIDAZOLE [Flagyl] 500 mg PO TID #42 tab 08/17/18 Rx Acetaminophen Tab [Tylenol] 650 mg PO Q6HR PRN tab 08/18/18 Rx Pantoprazole Sodium [Protonix] 40 mg PO DAILY #30 tablet. 08/18/18 Rx Allergies Allergy/AdvReac Type Severity Reaction Status Date / Time No Known Allergies Allergy Verified 09/23/18 13:30 Physical Exam Vitals: Vital Signs Temp Pulse Resp BP Pulse Ox 09/23/18 14:17 98.7 F 97 18 109/69 95 09/23/18 13:26 98.9 F 119 H 18 137/89 97 Intake and Output 09/23/18 09/23/18 09/23/18 06:59 14:59 22:59 Other: Weight 74.389 kg PHYSICAL EXAMINATION: Patient is lying in the bed comfortably, no acute distress, awake alert and oriented.. HEENT: Normocephalic. Neck is supple. Pupils reactive. Nostrils clear. Oral cavity is moist. Ears reveal no drainage. Neck reveals no JVD, carotid bruits, or thyromegaly. CHEST EXAMINATION: Trachea is central. Symmetrical expansion. Bibasilar diminished air entry. Lung arreola clear to auscultation and percussion. CARDIAC: Normal S1, S2 with no gallops. No murmurs ABDOMEN: Soft. Bowel sounds normal. Left upper quadrant tenderness with guarding. No rigidity.. Extremities: reveal no edema. No clubbing or cyanosis Neurologically awake, alert, oriented x3 with well-coordinated movements. No focal deficits noted Skin: No rash or skin lesions. Psychiatric: Coperative. Nonsuicidal Musculoskeletal: No joint swelling or deformity. Normal range of motion. Results CBC & Chem 7: 09/23/18 13:54 09/23/18 13:54 Labs: Abnormal Lab Results - Last 24 Hours (Table) 09/23/18 09/23/18 09/23/18 Range/Units 13:54 13:54 15:05 WBC 23.4 H (3.8-10.6) k/uL Neutrophils # 20.1 H (1.3-7.7) k/uL Monocytes # 1.2 H (0-1.0) k/uL Chloride 108 H (98-107) mmol/L Carbon Dioxide 20 L (22-30) mmol/L BUN 21 H (9-20) mg/dL Glucose 142 H (74-99) mg/dL Total Bilirubin 1.5 H (0.2-1.3) mg/dL Ur Specific [place] >1.050 H (1.001-1.035) Urine Protein 1+ H (Negative) Urine Mucus Many H (None) /hpf Thrombosis Risk Factor Assmnt - DVT/VTE Prophylaxis DVT/VTE Prophylaxis: Pharmacologic Prophylaxis ordered Assessment and Plan Assessment: Severe descending colitis with possible microperforation Sepsis secondary to severe colitis Recent history of pericolic abscess status post CT-guided drainage and drain tube and antibiotics. Recent diverticulitis History of hepatitis B and C Nicotine addiction. Quit 5 weeks ago DVT prophylaxis Plan: Patient will be continued on IV fluids, pain management with morphine. Nothing by mouth. Started on antibiotics no cough Levaquin and Flagyl. Follow-up blood cultures. General surgery and ID will be consulted. Continue to follow closely and further recommendations based on the clinical course. Time with Patient: Greater than 30
[2018-09-23 16:57] VITALS: BMI 24.9
[2018-09-23] MEDS: MORPHINE SULFATE 4 MG/ML SYRINGE IV PRN ×2 (17:04→22:10)
[2018-09-23] MEDS: ONDANSETRON 4 MG/2 ML VIAL IVP PRN (22:13)
[2018-09-23] MEDS: metroNIDAZOLE-NS PMX 500 MG in SALINE 1 100ML.BAG IVPB SCH (23:28)
[2018-09-23] MEDS: HEPARIN SODIUM,PORCINE 5,000 UNIT/ML 1 ML VIAL SQ SCH (23:30)
[2018-09-24] MEDS: ONDANSETRON 4 MG/2 ML VIAL IVP PRN ×2 (05:39→22:11)
[2018-09-24] MEDS: MORPHINE SULFATE 4 MG/ML SYRINGE IV PRN ×5 (05:39→22:11)
[2018-09-24] MEDS: HEPARIN SODIUM,PORCINE 5,000 UNIT/ML 1 ML VIAL SQ SCH ×3 (07:17→23:02)
[2018-09-24] MEDS: metroNIDAZOLE-NS PMX 500 MG in SALINE 1 100ML.BAG IVPB SCH (07:17)
[2018-09-24 08:35] LABS: Basophils % (A) 0 %; Eosinophils # (A) 0.1 k/uL (0-0.7); Eosinophils % (A) 0 %; HCT 53.7 % (39.0-53.0); HGB 17.2 gm/dL (13.0-17.5); Lymphocytes # (A) 1.8 k/uL (1.0-4.8); Lymphocytes % (A) 6 %; MCH 29.8 pg (25.0-35.0); MCHC 32.1 g/dL (31.0-37.0); MCV 92.8 fL (80.0-100.0); Mean Platelet Volume 6.6; Monocytes # (A) 1.1 k/uL (0-1.0); Monocytes % (A) 4 %; Neutrophils # (A) 24.8 k/uL (1.3-7.7); Neutrophils % (A) 88 %; Platelet Count 278 k/uL (150-450); RBC 5.78 m/uL (4.30-5.90); RDW 13.1 % (11.5-15.5); WBC 28.1 k/uL (3.8-10.6)
[2018-09-24 08:48] LABS: ALT 27 U/L (21-72); AST 19 U/L (17-59); Alkaline Phosphatase 67 U/L (38-126); Anion Gap 8 mmol/L; Blood Urea Nitrogen 24 mg/dL (9-20); Calcium 8.8 mg/dL (8.4-10.2); Carbon Dioxide 21 mmol/L (22-30); Chloride 111 mmol/L (98-107); Glucose 158 mg/dL (74-99); Potassium 5.2 mmol/L (3.5-5.1); Sodium 140 mmol/L (137-145); Total Bilirubin 1.2 mg/dL (0.2-1.3)
[2018-09-24] MEDS: SODIUM CHLORIDE 0.9% 1,000 ML IV SCH ×4 (12:23→14:13)
--- NOTE | 2018-09-24 12:43 | P.GSCN ---
History of Present Illness Consult date: 09/24/18 History of present illness: CHIEF COMPLAINT: Colitis HISTORY OF PRESENT ILLNESS: The patient is a 62-year-old male who reports 5 weeks ago developing ruptured diverticulitis and had been hospitalized at that time. He had been seeing Dr. Dangelo infectious disease doctor including Dr. Torrez as an outpatient where he is scheduled for colonoscopy in October. He had been on IV antibiotics for several weeks. He reports he was doing well and only had a dull ache in the left upper quadrant. On Tuesday now 3 days ago, he had a regular diet and immediately developed acute onset left flank pain. Since admission, he reports his pain is moderate to severe also extend into his back. Denies any chronic lower back pain. He has known history of diverticulosis. He denies any blood in stools. He is usually regular with bowel movements daily. Last bowel movement was also 3 days ago normal without blood. Since admission, he reports only morphine helps this pain. His abdominal pain pain is now worse today along the left flank and to the back. He has been afebrile. White count is over 20,000. He reports severe thirst and extremely dark urine. PAST MEDICAL HISTORY: See list. PAST SURGICAL HISTORY: See list. MEDICATIONS: See list. ALLERGIES: See list. SOCIAL HISTORY: Chronic tobacco abuse FAMILY HISTORY: No reports of Crohn's disease or inflammatory bowel disease REVIEW OF ORGAN SYSTEMS: CONSTITUTIONAL: No fevers or chills HEENT: No troubles with vision or hearing. No reports of dysphagia. ENDOCRINE: No reports of thyroid disorders. No diabetes. CARDIOVASCULAR: No heart attack. No chest pain. RESPIRATORY: No shortness of breath or pneumonia. GASTROINTESTINAL: No reports of recent blood in stools. Has hepatitis B and C. Past history of perforated colon with IV antibiotics NEURO: No reports of stroke or seizure disorders. PSYCH: No depression or suicidal ideation HEMATOLOGIC: No easy bruising or bleeding LYMPHATIC: The patient denies any lumps and bumps around the neck. GENITOURINARY: Reports dark urine. No blood in urine. MUSCULOSKELETAL: Denies back pain, stiffness or joint arthritis. SKIN: Has psoriasis of the skin. PHYSICAL EXAM: VITAL SIGNS: Reviewed GENERAL: Well-developed in no acute distress. HEENT: No sclera icterus. Extraocular movements grossly intact. Moist buccal mucosa. Head is atraumatic, normocephalic. Hears conversational speech. No nasal drainage. NECK: Supple without lymphadenopathy. CHEST: Non-labored respirations and equal bilateral excursions. CARDIOVASCULAR: Regular rate with regular rhythm. Palpable 2+ radial pulses. ABDOMEN: Soft. Mild distention. Diffusely tender. No peritoneal irritation with drying of the bed. MUSCULOSKELETAL: No clubbing, cyanosis or edema. NEUROLOGIC: No focal or lateralizing signs. Cranial nerves II through XII grossly intact. PSYCH: Appropriate affect. Alert and oriented to person, place and time. SKIN: Well perfused. Good skin turgor. LABS: Reviewed ASSESSMENT: 1. History of perforated diverticulitis 2. Leukocytosis 3. Diffuse abdominal pain PLAN: 1. He has severe marked dehydration with low urine output. Recommend aggressive IV fluid hydration with 2 L normal saline bolus. 2. Recommend repeat CT of the abdomen and pelvis for perforated bowel and free air given clinical picture of worsening abdominal pain 3. Agree with infectious disease consultation as he had recent IV antibiotic treatment for perforated diverticulitis 4. May have ice chips. 5. I discussed with him pending CT results, emergent surgical intervention with laparotomy and ostomy. Thank you for this kind consultation. Past Medical History Additional Past Medical History / Comment(s): hepatitis C & B, psoriasis, skin disorder, bowel abcess History of Any Multi-Drug Resistant Organisms: None Reported Additional Past Surgical History / Comment(s): nasal surgery, abd surgery for abcess Past Psychological History: No Psychological Hx Reported Smoking Status: Current every day smoker Past Alcohol Use History: None Reported Past Drug Use History: Marijuana Medications and Allergies Home Medications Medication Instructions Recorded Confirmed Type Acetaminophen Tab [Tylenol] 650 mg PO Q4H PRN 09/23/18 09/23/18 History Allergies Allergy/AdvReac Type Severity Reaction Status Date / Time No Known Allergies Allergy Verified 09/23/18 16:11 Surgical - Exam Vital Signs Temp Pulse Resp BP Pulse Ox 98.9 F 119 H 18 137/89 97 09/23/18 13:26 09/23/18 13:26 09/23/18 13:26 09/23/18 13:26 09/23/18 13:26 Results - Labs 09/24/18 08:11 09/24/18 08:11 Abnormal Lab Results - Last 24 Hours (Table) 09/23/18 09/23/18 09/23/18 Range/Units 13:54 13:54 15:05 WBC 23.4 H (3.8-10.6) k/uL Hct (39.0-53.0) % Neutrophils # 20.1 H (1.3-7.7) k/uL Monocytes # 1.2 H (0-1.0) k/uL Potassium (3.5-5.1) mmol/L Chloride 108 H (98-107) mmol/L Carbon Dioxide 20 L (22-30) mmol/L BUN 21 H (9-20) mg/dL Glucose 142 H (74-99) mg/dL Total Bilirubin 1.5 H (0.2-1.3) mg/dL Total Protein (6.3-8.2) g/dL Albumin (3.5-5.0) g/dL Ur Specific [place] >1.050 H (1.001-1.035) Urine Protein 1+ H (Negative) Urine Mucus Many H (None) /hpf 09/24/18 09/24/18 Range/Units 08:11 08:11 WBC 28.1 H (3.8-10.6) k/uL Hct 53.7 H (39.0-53.0) % Neutrophils # 24.8 H (1.3-7.7) k/uL Monocytes # 1.1 H (0-1.0) k/uL Potassium 5.2 H (3.5-5.1) mmol/L Chloride 111 H (98-107) mmol/L Carbon Dioxide 21 L (22-30) mmol/L BUN 24 H (9-20) mg/dL Glucose 158 H (74-99) mg/dL Total Bilirubin (0.2-1.3) mg/dL Total Protein 6.0 L (6.3-8.2) g/dL Albumin 3.0 L (3.5-5.0) g/dL Ur Specific [place] (1.001-1.035) Urine Protein (Negative) Urine Mucus (None) /[facility] Diabetes panel 09/23/18 09/24/18 Range/Units 13:54 08:11 Sodium 139 140 (137-145) mmol/L Potassium 5.0 5.2 H (3.5-5.1) mmol/L Chloride 108 H 111 H (98-107) mmol/L Carbon Dioxide 20 L 21 L (22-30) mmol/L BUN 21 H 24 H (9-20) mg/dL Creatinine 0.85 0.98 (0.66-1.25) mg/dL Glucose 142 H 158 H (74-99) mg/dL Calcium 9.5 8.8 (8.4-10.2) mg/dL AST 24 19 (17-59) U/L ALT 30 27 (21-72) U/L Alkaline Phosphatase 74 67 (38-126) U/L Total Protein 7.1 6.0 L (6.3-8.2) g/dL Albumin 3.7 3.0 L (3.5-5.0) g/dL Calcium panel 09/23/18 09/24/18 Range/Units 13:54 08:11 Calcium 9.5 8.8 (8.4-10.2) mg/dL Albumin 3.7 3.0 L (3.5-5.0) g/dL Pituitary panel 09/23/18 09/24/18 Range/Units 13:54 08:11 Sodium 139 140 (137-145) mmol/L Potassium 5.0 5.2 H (3.5-5.1) mmol/L Chloride 108 H 111 H (98-107) mmol/L Carbon Dioxide 20 L 21 L (22-30) mmol/L BUN 21 H 24 H (9-20) mg/dL Creatinine 0.85 0.98 (0.66-1.25) mg/dL Glucose 142 H 158 H (74-99) mg/dL Calcium 9.5 8.8 (8.4-10.2) mg/dL Adrenal panel 09/23/18 09/24/18 Range/Units 13:54 08:11 Sodium 139 140 (137-145) mmol/L Potassium 5.0 5.2 H (3.5-5.1) mmol/L Chloride 108 H 111 H (98-107) mmol/L Carbon Dioxide 20 L 21 L (22-30) mmol/L BUN 21 H 24 H (9-20) mg/dL Creatinine 0.85 0.98 (0.66-1.25) mg/dL Glucose 142 H 158 H (74-99) mg/dL Calcium 9.5 8.8 (8.4-10.2) mg/dL Total Bilirubin 1.5 H 1.2 (0.2-1.3) mg/dL AST 24 19 (17-59) U/L ALT 30 27 (21-72) U/L Alkaline Phosphatase 74 67 (38-126) U/L Total Protein 7.1 6.0 L (6.3-8.2) g/dL Albumin 3.7 3.0 L (3.5-5.0) g/dL - Imaging CT scan - abdomen: report reviewed, image reviewed CT scan - pelvis: report reviewed, image reviewed (Imaging reviewed demonstrating moderate thickening along the splenic flexure. No free air identified.) Assessment and Plan (1) Hepatitis C carrier Current Visit: Yes Status: Acute Code(s): B18.2 - CHRONIC VIRAL HEPATITIS C SNOMED Code(s): 725470562 (2) Hepatitis B carrier Current Visit: Yes Status: Acute Code(s): B18.1 - CHRONIC VIRAL HEPATITIS B WITHOUT DELTA-AGENT SNOMED Code(s): 257756005 (3) Tobacco abuse Current Visit: Yes Status: Acute Code(s): Z72.0 - TOBACCO USE SNOMED Code( s): 175569227 (4) Dehydration Current Visit: Yes Status: Acute Code(s): E86.0 - DEHYDRATION SNOMED Code( s): 51786530 (5) Oliguria Current Visit: Yes Status: Acute Code(s): R34 - ANURIA AND OLIGURIA SNOMED Code(s): 31614657 (6) Pericolonic abscess due to diverticulitis Current Visit: No Status: Acute Code(s): K57.20 - DVTRCLI OF LG INT W PERFORATION AND ABSCESS W/O BLEEDING SNOMED Code(s): 255528078
[2018-09-24] MEDS ORDERED: ANIDULAFUNGIN 200 MG in SODIUM CHLORIDE 0.9% 200 ML IVPB ONE (12:51)
[2018-09-24] MEDS: IOPAMIDOL-300 CONTRAST 30 ML VIAL (ORAL USE) PO PRN ×2 (13:03→14:03)
[2018-09-24] MEDS: PIPERACILLIN-TAZOBACTAM 3.375 GM in SODIUM CHLORIDE 0.9% 100 ML IVPB SCH (14:11)
--- NOTE | 2018-09-24 14:17 | P.PN ---
Progress Note - Text Progress Note Date: 09/24/18 Computed tomography scan of the abdomen and pelvis personally reviewed demonstrating no free air. Severe inflammatory changes on the left upper quadrant and descending colon confirmed. Please note this is my personal interpretation. Agree with continue with IV antibiotics. Nothing by mouth status except ice chips. Close observation in the interim. Appreciate infectious disease consultation.
--- NOTE | 2018-09-24 15:25 | P.CONS ---
History of Present Illness - Reason for Consult Consult date: 09/24/18 - Chief Complaint Abdominal pain - History of Present Illness 62-year-old male who has a known history of intra-abdominal abscess from a ruptured diverticuli approximately 5 weeks ago. He was taken care of in hospital and had percutaneous drainage of the abscess. He recently has been following with his surgeon Dr. Torrez, with plans for a follow-up colonoscopy and then any surgical plans to be made after that. The patient had been treated with a course of Rocephin and Flagyl that had stopped on 08/29/2018. The patient relates he really was doing very well until 3 days before admission when he started to have some increasing abdominal pain . He relates he had a normal meal and then he noticed the onset of the left lower flank pain. It increased in amount extended through the left flank down into the buttocks area. The pain became very severe from his flank and back which is why he sought care. Imaging studies were performed with evidence of the significant phlegmon along the sigmoid colon area as well as significant leukocytosis. The patient feels very poorly and does have evidence of dehydration and is being rehydrated per the surgeon. Follow-up computed tomography scan has been requested. Infectious disease consultation for antibiotic therapy. Review of Systems 62-year-old male who feels quite poorly with his abdominal pain. A few ice chips is making his very dry oral cavity feel better HEENT:Denies headache or acute visual change. Denies sinus or mouth discomforts. Denies neck stiffness or pain. Denies significant oral cavity lesions. Denies difficulty on swallowing. Lungs: Denies significant shortness of breath, cough, sputum production, or hemoptysis. Cardiovascular: Denies significant shortness of breath, chest pain, chest wall pain, orthopnea, dyspnea on exertion, syncope Gastrointestinal: As noted having severe abdominal pain which is being relieved with morphine, denies nausea or emesis did have some loose stool but hematemesis melena or hematochezia. With his dehydration had some darkening urine Musculoskeletal: denies significant myalgias or arthralgias. No new joint swelling. As noted was having the severe flank and back pain Skin: Denies new rash or lesions. No new ulcers or wounds are related.. Neuro: Denies headache or visual change. Denies any new onset weakness or difficulty with ambulation. Denies falls or seizures. Psychiatric:Denies anxiety or depression. Endocrine: Was doing well regaining his weight and appetite until the onset of the pain Past Medical History Additional Past Medical History / Comment(s): hepatitis C & B, psoriasis, skin disorder, bowel abcess History of Any Multi-Drug Resistant Organisms: None Reported Additional Past Surgical History / Comment(s): nasal surgery, abd surgery for abcess Past Psychological History: No Psychological Hx Reported Additional Psychological History / Comment(s): lives with the . 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 No experience. No international travel. Tobacco smoker. Stopped alcohol use 40 years ago. 2 dogs and 2 cats at home Smoking Status: Current every day smoker Past Alcohol Use History: None Reported Past Drug Use History: Marijuana Medications and Allergies Home Medications and Allergies Comment(s): Current Medications Heparin Sodium (Porcine) (Heparin) 5,000 unit SQ Q8HR [facility] Last Admin: 09/24/18 07:17 Dose: Not Given Anidulafungin 100 mg/ Sodium (Chloride) 100 mls @ 84 mls/hr IVPB DAILY [facility] Piperacillin Sod/Tazobactam (Sod 3.375 gm/ Sodium Chloride) 100 mls @ 25 mls/ hr IVPB Q8HR [facility] Last Admin: 09/24/18 14:11 Dose: 25 mls/hr Lorazepam (Ativan) 0.5 mg IV Q6HR PRN PRN Reason: Anxiety Morphine Sulfate (Morphine Sulfate (Inj)) 4 mg IV Q4HR PRN PRN Reason: Severe Pain Last Admin: 09/24/18 12:22 Dose: 4 mg Naloxone HCl (Narcan) 0.2 mg IV Q2M PRN PRN Reason: Opioid Reversal Ondansetron HCl (Zofran) 4 mg IVP Q8HR PRN PRN Reason: Nausea And Vomiting Last Admin: 09/24/18 05:39 Dose: 4 mg Home Medications Medication Instructions Recorded Confirmed Type Acetaminophen Tab [Tylenol] 650 mg PO Q4H PRN 09/23/18 09/23/18 History Allergies Allergy/AdvReac Type Severity Reaction Status Date / Time No Known Allergies Allergy Verified 09/23/18 16:11 Physical Exam Vitals: Vital Signs Temp Pulse Pulse Resp BP BP Pulse Ox 09/24/18 15:00 97.2 F L 68 16 152/98 94 L 09/24/18 07:00 98.4 F 103 H 20 127/80 92 L 09/23/18 23:00 98.6 F 96 18 123/74 92 L 09/23/18 17:12 98.3 F 104 H 12 103/66 94 L 09/23/18 15:57 98.7 F 82 18 134/82 94 L Intake and Output 09/24/18 09/24/18 09/24/18 06:59 14:59 22:59 Intake Total 0 Balance 0 Intake: Oral 0 Other: Voiding Method Toilet # Voids 1 2 Pleasant 62-year-old male who has received morphine which is relieved his severe abdominal pain he still feels poorly HEENT: Anicteric conjunctiva are pink and moist nasal mucosa grossly intact without significant lesions, there is no thrush. Neck: The neck is supple without significant lymphadenopathy or thyromegaly. Lungs: Good bilateral air entry without significant crackles or wheezing. There is no significant bronchial sounds. There is no egophony or dullness. Heart: Regular rate and rhythm with an audible S1-S2, no S3 no S4. There is no significant murmur click or rub, PMI was nondisplaced. Abdomen: Few bowel sounds, abdomen is extremely tender to touch the left lower quadrant, the abdomen is not rigid. He has guarding, no palpable hepatosplenomegaly or palpable mass Extremities: The upper extremities have excellent pulses they are symmetric, no significant petechiae or telangiectasia. No splinter hemorrhages were noted. The lower extremities are free from significant edema. The peripheral pulses were 2+ and symmetric. Neuro: Awake alert oriented to person place and time. There are no acute new gross focal sensory motor deficits. Results CBC & Chem 7: 09/24/18 08:11 09/24/18 08:11 Labs: Abnormal Lab Results - Last 24 Hours (Table) 09/23/18 09/24/18 09/24/18 Range/Units 15:05 08:11 08:11 WBC 28.1 H (3.8-10.6) k/uL Hct 53.7 H (39.0-53.0) % Neutrophils # 24.8 H (1.3-7.7) k/uL Monocytes # 1.1 H (0-1.0) k/uL Potassium 5.2 H (3.5-5.1) mmol/L Chloride 111 H (98-107) mmol/L Carbon Dioxide 21 L (22-30) mmol/L BUN 24 H (9-20) mg/dL Glucose 158 H (74-99) mg/dL Total Protein 6.0 L (6.3-8.2) g/dL Albumin 3.0 L (3.5-5.0) g/dL Ur Specific [place] >1.050 H (1.001-1.035) Urine Protein 1+ H (Negative) Urine Mucus Many H (None) /hpf Laboratory Results WBC 28.1 k/uL (3.8-10.6) H 09/24/18 08:11 RBC 5.78 m/uL (4.30-5.90) 09/24/18 08:11 Hgb 17.2 gm/dL (13.0-17.5) 09/24/18 08:11 Hct 53.7 % (39.0-53.0) H 09/24/18 08:11 MCV 92.8 fL (80.0-100.0) 09/24/18 08:11 MCH 29.8 pg (25.0-35.0) 09/24/18 08:11 MCHC 32.1 g/dL (31.0-37.0) 09/24/18 08:11 RDW 13.1 % (11.5-15.5) 09/24/18 08:11 Plt Count 278 k/uL (150-450) 09/24/18 08:11 Neutrophils % 88 % 09/24/18 08:11 Lymphocytes % 6 % 09/24/18 08:11 Monocytes % 4 % 09/24/18 08:11 Eosinophils % 0 % 09/24/18 08:11 Basophils % 0 % 09/24/18 08:11 Neutrophils # 24.8 k/uL (1.3-7.7) H 09/24/18 08:11 Lymphocytes # 1.8 k/uL (1.0-4.8) 09/24/18 08:11 Monocytes # 1.1 k/uL (0-1.0) H 09/24/18 08:11 Eosinophils # 0.1 k/uL (0-0.7) 09/24/18 08:11 Basophils # 0.0 k/uL (0-0.2) 09/24/18 08:11 PT 10.5 sec (9.0-12.0) 09/23/18 13:54 INR 1.0 (<1.2) 09/23/18 13:54 APTT 25.6 sec (22.0-30.0) 09/23/18 13:54 Sodium 140 mmol/L (137-145) 09/24/18 08:11 Potassium 5.2 mmol/L (3.5-5.1) H 09/24/18 08:11 Chloride 111 mmol/L (98-107) H 09/24/18 08:11 Carbon Dioxide 21 mmol/L (22-30) L 09/24/18 08:11 Anion Gap 8 mmol/L 09/24/18 08:11 BUN 24 mg/dL (9-20) H 09/24/18 08:11 Creatinine 0.98 mg/dL (0.66-1.25) 09/24/18 08:11 Est GFR (CKD-EPI)AfAm >90 (>60 ml/min/1.73 sqM) 09/24/18 08:11 Est GFR (CKD-EPI)NonAf 82 (>60 ml/min/1.73 sqM) 09/24/18 08:11 Glucose 158 mg/dL (74-99) H 09/24/18 08:11 Plasma Lactic Acid Theodore 1.3 mmol/L (0.7-2.0) 09/23/18 13:54 Calcium 8.8 mg/dL (8.4-10.2) 09/24/18 08:11 Total Bilirubin 1.2 mg/dL (0.2-1.3) 09/24/18 08:11 AST 19 U/L (17-59) 09/24/18 08:11 ALT 27 U/L (21-72) 09/24/18 08:11 Alkaline Phosphatase 67 U/L (38-126) 09/24/18 08:11 Total Protein 6.0 g/dL (6.3-8.2) L 09/24/18 08:11 Albumin 3.0 g/dL (3.5-5.0) L 09/24/18 08:11 Lipase 99 U/L (23-300) 09/23/18 13:54 Urine Color Yellow 09/23/18 15:05 Urine Appearance Clear (Clear) 09/23/18 15:05 Urine pH 6.0 (5.0-8.0) 09/23/18 15:05 Ur Specific [place] >1.050 (1.001-1.035) H 09/23/18 15:05 Urine Protein 1+ (Negative) H 09/23/18 15:05 Urine Glucose (UA) Negative (Negative) 09/23/18 15:05 Urine Ketones Negative (Negative) 09/23/18 15:05 Urine Blood Negative (Negative) 09/23/18 15:05 Urine Nitrite Negative (Negative) 09/23/18 15:05 Urine Bilirubin Negative (Negative) 09/23/18 15:05 Urine Urobilinogen 2.0 mg/dL (<2.0) 09/23/18 15:05 Ur Leukocyte Esterase Negative (Negative) 09/23/18 15:05 Urine RBC 3 /hpf (0-5) 09/23/18 15:05 Urine WBC 2 /hpf (0-5) 09/23/18 15:05 Urine Mucus Many /hpf (None) H 09/23/18 15:05 CT scan - abdomen: report reviewed (Phlegmon at the sigmoid colon) Assessment and Plan (1) 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 Because of the rapid severity of the pain in his recent history of intra- abdominal infection treated with percutaneous drainage and antibiotic therapy he presented to the emergency center. At the time of admission computed tomography scan reveals evidence of the extensive phlegmon and colitis of the descending colon. The patient has been seen by surgery and rehydration is occurring. A computed tomography scan has been requested. There is concern the patient will need to be taken to the operating room for a surgical intervention for this extensive infectious process. He fortunately is hemodynamic stable at this point in time. Hydration feels somewhat better. Given that he was treated with ceftriaxone and metronidazole we'll alter to piperacillin tazobactam which we give us coverage for more resistant gram- negative pathogens, enterococcus, and Eraxis will be given if there is a fungal process also occurring. Cultures are process. Surgical plan will be developing as he progresses in the next days time. Profound leukocytosis due to the acute infectious process. Current Visit: No Status: Acute Code(s): K57.20 - DVTRCLI OF LG INT W PERFORATION AND ABSCESS W/O BLEEDING SNOMED Code(s): 686413798 (2) Leukocytosis Current Visit: Yes Status: Acute Code(s): D72.829 - ELEVATED WHITE BLOOD CELL COUNT, UNSPECIFIED SNOMED Code(s): 663362934 (3) Hypoalbuminemia Current Visit: Yes Status: Acute Code(s): E88.09 - OTH DISORDERS OF PLASMA- PROTEIN METABOLISM, NEC SNOMED Code(s): 560643420
--- NOTE | 2018-09-24 15:56 | CT ---
EXAMINATION TYPE: CT abdomen pelvis w con DATE OF EXAM: 09/24/2018 COMPARISON: CT abdomen pelvis 09/23/2018 HISTORY: Abdominal pain with history of intra-abdominal abscess CT DLP: 829.6 mGycm Automated exposure control for dose reduction was used. TECHNIQUE: Helical acquisition of images was performed from the lung bases through the pelvis. CONTRAST: 100 cc of Isovue 300 and oral contrast. FINDINGS: LUNG BASES: Interval development of a left sided pleural effusion with associated atelectasis. LIVER/GB: No significant abnormality is appreciated. PANCREAS: No significant abnormality is seen. SPLEEN: No significant abnormality is seen. ADRENALS: No significant abnormality is seen. KIDNEYS: No significant abnormality is seen. A large left-sided renal cyst is unchanged. FREE AIR: No free air is visualized. RETROPERITONEAL ADENOPATHY: None visualized REPRODUCTIVE ORGANS: No significant abnormality is seen URINARY BLADDER: No significant abnormality is seen. PELVIC ADENOPATHY: None visualized. OSSEOUS STRUCTURES: No significant abnormality is seen. BOWEL: Circumferential wall thickening is again seen predominantly in involving the descending and r ectosigmoid colon. There is minimal but increased free fluid within the abdomen including the perihep atic and perisplenic spaces. Increased fluid within the low pelvis. No evidence of pneumoperitoneum. IMPRESSION: 1. MINIMAL INTERVAL INCREASE OF THE AMOUNT OF FREE FLUID WITHIN THE ABDOMEN AND PELVIS. NO FOCAL FLUI D COLLECTIONS TO SUGGEST ABSCESS FORMATION. INFECTIOUS ETIOLOGY IS FAVORED. 2. STABLE CIRCUMFERENTIAL WALL THICKENING OF THE DESCENDING AND RECTOSIGMOID COLON WHICH IS MOST PRON OUNCED IN THE DESCENDING COLON. 3. INTERVAL DEVELOPMENT OF LEFT-SIDED PLEURAL EFFUSION WITH ATELECTASIS.
[2018-09-24] MEDS ORDERED: LEVOFLOXACIN 500MG-D5W PMX 500 MG in DEXTROSE/WATER 1 100ML.BAG IVPB SCH (16:00)
--- NOTE | 2018-09-24 20:42 | P.PN ---
Subjective Progress Note Date: 09/24/18 Principal diagnosis: Acute colitis with possible microperforation Patient is a 62-year-old male with a known history of. Pericolic abscess in August [address]-guided drainage with drain tube and antibiotics, diverticulitis, hepatitis B, C and nicotine addiction quit 5 weeks ago came to ER with complaints of abdominal pain mainly left upper quadrant for the past 2 days. Pain is very sharp and stabbing type. Previously patient had dull pain as per patient. No radiation of pain. Patient says that his pain gets worse with movement. Patient called his surgeon yesterday and was advised to come to the hospital. Today morning patient had his breakfast and took a nap and suddenly woke up with stabbing pain. Patient also felt nauseated. No vomiting. Denied any fever or chills. No chest pain or shortness of breath. No complaints of back pain. Patient had last bowel movement 2 days ago. Patient is scheduled for colonoscopy on October 17. Patient was seen by Dr. Torrez CT of the abdominal pelvis showed findings likely represent severe colitis, difficult to exclude underlying mucosal abnormality, extensive inflammatory changes as described. Interval ascites has developed, no small left pleural effusion. WBC 23.4 and bilirubin 1.5 09/24/2018 Patient is still having abdominal pain. No fever or chills. Patient does have worsening leukocytosis with WBC count increased to 20 Patient was seen by general surgery and ID. Antibiotics have been changed to Zosyn now. Repeat CT abdomen and pelvis showed minimal interval increase in the amount of free fluid within the abdomen and pelvis. No focal fluid collection to suggest abscess. No nausea no vomiting. Patient does have constipation with last bowel movement 3 days ago Patient is currently nothing by mouth. Current medications reviewed Active Medications Heparin Sodium (Porcine) (Heparin) 5,000 unit SQ Q8HR [facility] Last Admin: 09/24/18 15:33 Dose: Not Given Anidulafungin 100 mg/ Sodium (Chloride) 100 mls @ 84 mls/hr IVPB DAILY [facility] Piperacillin Sod/Tazobactam (Sod 3.375 gm/ Sodium Chloride) 100 mls @ 25 mls/ hr IVPB Q8HR [facility] Last Admin: 09/24/18 14:11 Dose: 25 mls/hr Lorazepam (Ativan) 0.5 mg IV Q6HR PRN PRN Reason: Anxiety Morphine Sulfate (Morphine Sulfate (Inj)) 4 mg IV Q4HR PRN PRN Reason: Severe Pain Last Admin: 09/24/18 16:18 Dose: 4 mg Naloxone HCl (Narcan) 0.2 mg IV Q2M PRN PRN Reason: Opioid Reversal Ondansetron HCl (Zofran) 4 mg IVP Q8HR PRN PRN Reason: Nausea And Vomiting Last Admin: 09/24/18 05:39 Dose: 4 mg Objective - Vital Signs Vital signs: Vital Signs Temp 98.4 F 09/24/18 07:00 Pulse 103 H 09/24/18 07:00 Resp 20 09/24/18 07:00 BP 127/80 09/24/18 07:00 Pulse Ox 92 L 09/24/18 07:00 Intake & Output 09/23/18 09/24/18 09/24/18 18:59 06:59 18:59 Intake Total 0 Balance 0 Weight 74.389 kg 74.389 kg Intake: Oral 0 Other: Voiding Method Toilet Toilet Toilet # Voids 1 2 - Exam PHYSICAL EXAMINATION: Patient is lying in the bed comfortably, no acute distress, awake alert and oriented.. HEENT: Normocephalic. Neck is supple. Pupils reactive. Nostrils clear. Oral cavity is moist. Ears reveal no drainage. Neck reveals no JVD, carotid bruits, or thyromegaly. CHEST EXAMINATION: Trachea is central. Symmetrical expansion. Bibasilar diminished air entry. Lung arreola clear to auscultation and percussion. CARDIAC: Normal S1, S2 with no gallops. No murmurs ABDOMEN: Soft. Bowel sounds normal. Left upper quadrant tenderness with guarding. No rigidity.. Extremities: reveal no edema. No clubbing or cyanosis Neurologically awake, alert, oriented x3 with well-coordinated movements. No focal deficits noted Skin: No rash or skin lesions. Psychiatric: Coperative. Nonsuicidal Musculoskeletal: No joint swelling or deformity. Normal range of motion. - Labs CBC & Chem 7: 09/24/18 08:11 09/24/18 08:11 Labs: Abnormal Lab Results - Last 24 Hours (Table) 09/23/18 09/23/18 09/23/18 Range/Units 13:54 13:54 15:05 WBC 23.4 H (3.8-10.6) k/uL Hct (39.0-53.0) % Neutrophils # 20.1 H (1.3-7.7) k/uL Monocytes # 1.2 H (0-1.0) k/uL Potassium (3.5-5.1) mmol/L Chloride 108 H (98-107) mmol/L Carbon Dioxide 20 L (22-30) mmol/L BUN 21 H (9-20) mg/dL Glucose 142 H (74-99) mg/dL Total Bilirubin 1.5 H (0.2-1.3) mg/dL Total Protein (6.3-8.2) g/dL Albumin (3.5-5.0) g/dL Ur Specific [place] >1.050 H (1.001-1.035) Urine Protein 1+ H (Negative) Urine Mucus Many H (None) /hpf 09/24/18 09/24/18 Range/Units 08:11 08:11 WBC 28.1 H (3.8-10.6) k/uL Hct 53.7 H (39.0-53.0) % Neutrophils # 24.8 H (1.3-7.7) k/uL Monocytes # 1.1 H (0-1.0) k/uL Potassium 5.2 H (3.5-5.1) mmol/L Chloride 111 H (98-107) mmol/L Carbon Dioxide 21 L (22-30) mmol/L BUN 24 H (9-20) mg/dL Glucose 158 H (74-99) mg/dL Total Bilirubin (0.2-1.3) mg/dL Total Protein 6.0 L (6.3-8.2) g/dL Albumin 3.0 L (3.5-5.0) g/dL Ur Specific [place] (1.001-1.035) Urine Protein (Negative) Urine Mucus (None) /hpf Assessment and Plan Assessment: Severe descending colitis with possible microperforation Sepsis secondary to severe colitis Recent history of pericolic abscess status post CT-guided drainage and drain tube and antibiotics. Recent diverticulitis History of hepatitis B and C Nicotine addiction. Quit 5 weeks ago DVT prophylaxis Plan: Patient will be continued on IV fluids, pain management with morphine. Nothing by mouth. Antibiotics changed to Zosyn. Follow-up blood cultures. General surgery and ID is following. Continue to follow closely and further recommendations based on the clinical course. Prognosis is guarded. Time with Patient: Greater than 30
[2018-09-25] MEDS: PIPERACILLIN-TAZOBACTAM 3.375 GM in SODIUM CHLORIDE 0.9% 100 ML IVPB SCH ×3 (00:11→19:24)
[2018-09-25] MEDS ORDERED: DILTIAZEM DRIP BOLUS FROM BAG 1 MG SOLN IV ONE (02:17)
[2018-09-25] MEDS ORDERED: DILTIAZEM 50 MG in SODIUM CHLORIDE 0.9% 40 ML IV SCH (02:30)
[2018-09-25] MEDS ORDERED: HEPARIN SODIUM,PORCINE 5,000 UNIT/ML 1 ML VIAL IV ONE (02:45)
[2018-09-25] MEDS ORDERED: HEPARIN SODIUM,PORCINE 5,000 UNIT/ML 1 ML VIAL IV PRN (02:45)
[2018-09-25] MEDS ORDERED: HEPARIN SOD,PORK IN 0.45% NACL 25,000 UNIT in 0.45% NACL 1 250ML.BAG IV SCH (02:45)
[2018-09-25] MEDS: MORPHINE SULFATE 4 MG/ML SYRINGE IV PRN ×2 (03:10→08:30)
[2018-09-25] MEDS ORDERED: ADENOSINE 3 MG/ML 2 ML VIAL IVP STA (03:20)
[2018-09-25] MEDS ORDERED: DEXTROSE 5% IN WATER 100 ML with AMIODARONE 150 MG IV ONE (03:20)
[2018-09-25] MEDS ORDERED: AMIODARONE 450 MG in DEXTROSE 5% IN WATER 250 ML IV SCH ×2 (04:00)
[2018-09-25 04:08] LABS: INR 1.2 (<1.2); Partial Thromboplastin Time 25.6 sec (22.0-30.0); Prothrombin Time 12.3 sec (9.0-12.0)
[2018-09-25] MEDS: LORazepam 2 MG/ML INJ IV PRN ×2 (04:08→08:30)
[2018-09-25 04:20] LABS: Basophils # (A) 0.3 k/uL (0-0.2); Basophils % (A) 1 %; Eosinophils # (A) 0.1 k/uL (0-0.7); Eosinophils % (A) 0 %; Lymphocytes # (A) 2.7 k/uL (1.0-4.8); Lymphocytes % (A) 6 %; MCH 29.6 pg (25.0-35.0); MCV 95.5 fL (80.0-100.0); Monocytes # (A) 2.6 k/uL (0-1.0); Monocytes % (A) 6 %; Neutrophils # (A) 40.5 k/uL (1.3-7.7); Neutrophils % (A) 87 %; Platelet Count 274 k/uL (150-450); RBC 6.75 m/uL (4.30-5.90); RDW 13.2 % (11.5-15.5); WBC 46.7 k/uL (3.8-10.6)
[2018-09-25 04:25] LABS: Calcium 8.7 mg/dL (8.4-10.2); Magnesium 2.2 mg/dL (1.6-2.3); Phosphorus 5.6 mg/dL (2.5-4.5); Potassium 4.9 mmol/L (3.5-5.1)
[2018-09-25 04:29] LABS: HCT 64.5 % (39.0-53.0)
[2018-09-25] MEDS ORDERED: VANCOMYCIN IV PER PHARMACY 1 EACH MISC MISCELLANE PRN (05:00)
[2018-09-25 05:48] LABS: Glucose,Whole Blood 158 mg/dL (75-99)
[2018-09-25] MEDS: VANCOMYCIN 1,250 MG in SODIUM CHLORIDE 0.9% 250 ML IVPB SCH (06:15)
[2018-09-25] MEDS: SODIUM CHLORIDE 0.9% 1,000 ML IV SCH ×5 (06:16→20:45)
[2018-09-25] MEDS: SODIUM CHLORIDE 0.9% 2,000 ML IV ONE (06:20)
[2018-09-25 08:30] LABS: HCT 52.8 % (39.0-53.0); Hypochromasia Slight; MCH 30.7 pg (25.0-35.0); MCHC 31.7 g/dL (31.0-37.0); MCV 96.8 fL (80.0-100.0); Mean Platelet Volume 7.4; Platelet Count 202 k/uL (150-450); RBC 5.45 m/uL (4.30-5.90); RDW 13.1 % (11.5-15.5)
[2018-09-25 08:32] LABS: HGB 16.7 gm/dL (13.0-17.5); WBC 50.2 k/uL (3.8-10.6)
[2018-09-25 08:51] LABS: Appearance,Urine Turbid (Clear); Bilirubin,Urine Negative (Negative); Blood,Urine Small (Negative); Color,Urine Yellow; Glucose,Urine (UA) Trace (Negative); Ketones,Urine Trace (Negative); Leukocyte Esterase,Urine Trace (Negative); Mucus,Urine Rare /hpf; Nitrite,Urine Negative (Negative); PH, Urine 5.5 (5.0-8.0); Protein,Urine 1+ (Negative); RBC,Urine 13 /hpf (0-5); Specific Gravity,Urine 1.028 (1.001-1.035); Urobilinogen,Urine <2.0 mg/dL (<2.0)
[2018-09-25 09:05] LABS: Band Neutrophils % 2 %; Lymphocytes # (M) 4.02 k/uL (1.0-4.8); Monocytes # (M) 3.01 k/uL (0-1.0); Myelocytes % 1 %; Neutrophils % (M) 85 %; Nucleated Red Blood Cells 0 /100 WBC (0-0); Total Cells Counted 200
[2018-09-25] MEDS: PROPOFOL 1,000 MG in EMPTY BAG 1 BAG IV SCH ×2 (09:45→18:35)
[2018-09-25 09:53] LABS: ABG Base Excess -16.4 mmol/L; ABG HCO3 12 mmol/L (21-25); ABG Oxygen Saturation 99.9 % (94-97); ABG PCO2 29 mmHg (35-45); ABG PH 7.21 (7.35-7.45); ABG PO2 324 mmHg (83-108); ABG TCO2 12 mmol/L (19-24)
--- NOTE | 2018-09-25 10:04 | P.CNPUL ---
History of Present Illness Consult date: 09/25/18 Chief complaint: Abdominal pain, septic shock History of present illness: 65-year-old male patient who is being seen in the intensive care unit for acute sepsis/septic shock. The patient has a previous history of complicated diverticulitis with development of an intra-abdominal abscess for which she received percutaneous drainage on 08/14/2018 and the cultures were consistent with anaerobes, Bacteroides fragilis. The patient completed outpatient course of antibiotics and he completed the antibiotic treatment on 08/29/2018 and the percutaneous drain was removed. The patient was being followed up by Dr. Torrez on outpatient basis. The patient was also being seen by Dr. Limon from infectious disease. He was treated with a course of IV Rocephin and Flagyl that was stopped on 08/29/2018. The patient was doing well until approximately 3 days ago when he came into the hospital because of increased abdominal pain. He was complaining of a left lower abdominal pain. The pain became progressively worse and was extending to his flank and the back. CAT scan of the abdomen was repeated and showed minimal interval increase in the amount of the free fluid within the abdomen and the pelvis without any fluid collection to suggest abscess formation. There was circumferential thickening of the bowel wall in the descending and the rectosigmoid area and interval development of left-sided pleural effusion At the time of my arrival this morning, the patient has already received 2 L of IV fluids and he was quite uncomfortable abdomen was distended he was producing minimal amount of urine output and lethargic and diaphoretic and tachypneic. He was still complaining of increased abdominal pain and distention.I discussed the case with the general surgeon. I also talked to the family. I intubated the patient and put him on a mechanical ventilator. Following that the blood gas post intubation showed a pH of 7.21 with a pCO2 of 28 and pO2 of 24 and this was done and FiO2 of 100% with a PEEP of 5 and tidal volume of 550 with a rate of 28. Based on his blood gas, I'm going to drop the FiO2 down to 50%. Chest x-rays to follow. A triple lumen cath was inserted. Do not lie cath was inserted and the patient is receiving 3 L of IV fluid boluses and he was started also on pressors and norepinephrine infusion is running at 20 mics. He is also sedated with Diprivan at 10 mics. The patient be taken to the operating room at noontime. The surgeon was informed above-mentioned changes. Blood cultures negative thus far. The follow-up lactate level was around 5.6. Repeat lactic acid level is pending. Note that overnight the patient had a bout of atrial fibrillation with rapid ventricular response. Immediate post intubation the patient converted back to normal sinus rhythm. He is currently off amiodarone drip and he is also off IV heparin. Review of Systems ROS unobtainable: due to endotracheal tube Past Medical History Additional Past Medical History / Comment(s): Complicated diverticulitis, history of intra-abdominal abscess formation post percutaneous drainage, hepatitis C and B positivity, psoriasis History of Any Multi-Drug Resistant Organisms: None Reported Additional Past Surgical History / Comment(s): nasal surgery, abd surgery for abcess Past Psychological History: No Psychological Hx Reported Additional Psychological History / Comment(s): lives with the . 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 No experience. No international travel. Tobacco smoker. Stopped alcohol use 40 years ago. 2 dogs and 2 cats at home Smoking Status: Current every day smoker Past Alcohol Use History: None Reported Past Drug Use History: Marijuana Medications and Allergies Home Medications Medication Instructions Recorded Confirmed Type Acetaminophen Tab [Tylenol] 650 mg PO Q4H PRN 09/23/18 09/23/18 History Allergies Allergy/AdvReac Type Severity Reaction Status Date / Time No Known Allergies Allergy Verified 09/23/18 16:11 Physical Exam Vitals: Vital Signs Temp Pulse Pulse Resp BP BP Pulse Ox 09/25/18 08:00 126 H 18 139/100 94 L 09/25/18 07:30 124 H 18 127/102 94 L 09/25/18 07:00 126 H 18 119/90 94 L 09/25/18 06:30 133 H 15 120/44 93 L 09/25/18 06:00 98.4 F 128 H 11 L 132/102 94 L 09/25/18 04:59 97.7 F 124 H 20 130/82 96 09/25/18 03:53 95 09/25/18 03:50 163 H 18 133/76 95 09/25/18 03:45 159 H 18 141/72 95 09/25/18 03:44 168 H 09/25/18 03:40 178 H 18 96 09/25/18 03:35 166 H 20 129/59 95 09/25/18 03:30 188 H 22 122/74 95 09/25/18 01:30 155 H 09/25/18 00:30 140 H 09/24/18 23:00 97.8 F 121 H 18 136/96 93 L 09/24/18 15:00 97.2 F L 68 16 152/98 94 L Intake and Output 09/24/18 09/25/18 09/25/18 22:59 06:59 14:59 Intake Total 600 Output Total 10 Balance 600 -10 Intake: Intake, IV Titration 600 Amount Sodium Chloride 0.9% 1, 600 000 ml @ 100 mls/hr IV . Q10H ONE Rx#:[id number] Output: Urine 10 Other: Voiding Method Toilet Indwelling Catheter Weight 67 kg Gen. appearance, comfortable sedated at this point intubated on a mechanical ventilator. Orotracheal and orogastric tube are both in place. Head exam was generally normal. There was no scleral icterus or corneal arcus. Mucous membranes were moist. Neck was supple and without jugular venous distension, thyromegaly, or carotid bruits. Carotids were easily palpable bilaterally. There was no adenopathy. Lungs were clear to auscultation and percussion, and with normal diaphragmatic excursion. No wheezes or rales were noted. Cardiac exam revealed the PMI to be normally situated and sized. The rhythm was regular and no extrasystoles were noted during several minutes of auscultation. The first and second heart sounds were normal and physiologic splitting of the second heart sound was noted. There were no murmurs, rubs, clicks, or gallops. Abdomen is distended.. Distention improved after insertion of the oral G-tube. A total of 500 mL of gastric aspirate was obtained immediately. There is left lower quadrant tenderness to no rebound tenderness or guarding. Bowel sounds are absent. Extremities are mottled cold and pulses are diminished in lower extremities bilaterally as well as in the upper extremities. No cyanosis. No clubbing. Neurologically the patient was awake prior to the intubation process. He was moving all 4 extremities without any limitation. No cranial nerve deficits. Skin is mottled and lower extremities bilaterally. No open wounds or sores. Results - Laboratory Findings CBC and BMP: 09/25/18 08:10 09/25/18 03:47 PT/INR, D-dimer PT 12.3 sec (9.0-12.0) H 09/25/18 03:47 INR 1.2 (<1.2) H 09/25/18 03:47 Abnormal lab findings: Abnormal Labs 09/23/18 09/23/18 09/23/18 13:54 13:54 15:05 WBC 23.4 H RBC Hgb Hct Neutrophils # 20.1 H Neutrophils # (Manual) Monocytes # 1.2 H Monocytes # (Manual) Basophils # Myelocytes # (Manual) PT INR Potassium Chloride 108 H Carbon Dioxide 20 L BUN 21 H Creatinine Glucose 142 H POC Glucose (mg/dL) Plasma Lactic Acid Theodore Phosphorus Total Bilirubin 1.5 H Total Protein Albumin Ur Specific [place] >1.050 H Urine Protein 1+ H Urine Glucose (UA) Urine Ketones Urine Blood Ur Leukocyte Esterase Urine RBC Urine Mucus Many H 09/24/18 09/24/18 09/25/18 08:11 08:11 03:47 WBC 28.1 H RBC Hgb Hct 53.7 H Neutrophils # 24.8 H Neutrophils # (Manual) Monocytes # 1.1 H Monocytes # (Manual) Basophils # Myelocytes # (Manual) PT 12.3 H INR 1.2 H Potassium 5.2 H Chloride 111 H Carbon Dioxide 21 L BUN 24 H Creatinine Glucose 158 H POC Glucose (mg/dL) Plasma Lactic Acid Theodore Phosphorus Total Bilirubin Total Protein 6.0 L Albumin 3.0 L Ur Specific [place] Urine Protein Urine Glucose (UA) Urine Ketones Urine Blood Ur Leukocyte Esterase Urine RBC Urine Mucus 09/25/18 09/25/18 09/25/18 03:47 03:47 03:47 WBC 46.7 H RBC 6.75 H Hgb 20.0 H* Hct 64.5 H* Neutrophils # 40.5 H Neutrophils # (Manual) Monocytes # 2.6 H Monocytes # (Manual) Basophils # 0.3 H Myelocytes # (Manual) PT INR Potassium Chloride 111 H Carbon Dioxide 15 L BUN 37 H Creatinine 1.56 H Glucose 211 H POC Glucose (mg/dL) Plasma Lactic Acid Theodore 6.0 H* Phosphorus 5.6 H Total Bilirubin Total Protein Albumin Ur Specific [place] Urine Protein Urine Glucose (UA) Urine Ketones Urine Blood Ur Leukocyte Esterase Urine RBC Urine Mucus 09/25/18 09/25/18 09/25/18 05:37 08:10 08:10 WBC 50.2 H* RBC Hgb Hct Neutrophils # Neutrophils # (Manual) 43.60 H Monocytes # Monocytes # (Manual) 3.01 H Basophils # Myelocytes # (Manual) 0.50 H PT INR Potassium Chloride Carbon Dioxide BUN Creatinine Glucose POC Glucose (mg/dL) 158 H Plasma Lactic Acid Theodore 5.8 H* Phosphorus Total Bilirubin Total Protein Albumin Ur Specific [place] Urine Protein Urine Glucose (UA) Urine Ketones Urine Blood Ur Leukocyte Esterase Urine RBC Urine Mucus 09/25/18 08:15 WBC RBC Hgb Hct Neutrophils # Neutrophils # (Manual) Monocytes # Monocytes # (Manual) Basophils # Myelocytes # (Manual) PT INR Potassium Chloride Carbon Dioxide BUN Creatinine Glucose POC Glucose (mg/dL) Plasma Lactic Acid Theodore Phosphorus Total Bilirubin Total Protein Albumin Ur Specific [place] Urine Protein 1+ H Urine Glucose (UA) Trace H Urine Ketones Trace H Urine Blood Small H Ur Leukocyte Esterase Trace H Urine RBC 13 H Urine Mucus Rare H - Diagnostic Findings Chest x-ray: image reviewed Assessment and Plan Plan: Assessment 1 acute septic shock likely of an intra-abdominal source. The patient had history of pericolic abscesses due to a complicated diverticulitis post percutaneous drainage insertion. Presents in to the hospital because of increased abdominal pain, leukocytosis, lactic acidosis, and abdominal distention and the CAT scan of the abdomen showed ischemic changes involving the descending and rectosigmoid colon. Rule out bowel ischemia/necrosis. 2 acute ventilator-dependent respiratory failure secondary to above. The patient was intubated due to his severe metabolic acidosis. This is an acute respiratory failure secondary to septic shock 3 acute hypotension secondary to above. The patient is being resuscitated IV fluids and pressors 4 acute leukocytosis 5 acute lactic acidosis 6 atrial fibrillation with rapid ventricular response due to sepsis, converted and the patient's rhythm is back to sinus 7 history of that his been hepatitis C 8 acute kidney injury with secondary oligoria related to septic shock 9 history of psoriasis Plan We'll give this patient an additional 3 L of IV fluid in the form of normal saline. Patient is intubated on a mechanical ventilator. I intubated this patient in the intensive care unit. Lines were established and the patient will be resuscitated with IV fluids and pressors. Currently the patient is sedated with Diprivan and the patient is also receiving pressors in the form of norepinephrine infusion at the rate of 20 mics. Urine output is minimal at this point in time. He is being covered with broad-spectrum antibiotics. He is on antifungal agents addition to a combination of vancomycin and Zosyn. Orogastric tube was inserted. The stomach was deflated. We'll repeat the blood work. We'll repeat lactic acid level. We'll use Lovenox for DVT prophylaxis 40 mg subcu. The patient will be taken to the operating room today for extensive laparotomy and possible bowel resection and colostomy and this will largely depend on the intraoperative findings. We'll continue to follow. Condition is critical. Family was updated on his condition. Discussed the case with the surgeon on multiple occasions. We'll continue to follow. He will obviously come back intubated from the operating room and we'll keep him on a mechanical ventilator for now. Time with Patient: Greater than 30
[2018-09-25 10:10] LABS: MCH 31.4 pg (25.0-35.0); MCV 95.2 fL (80.0-100.0); Mean Platelet Volume 7.8; Platelet Count 210 k/uL (150-450); RBC 6.05 m/uL (4.30-5.90); RDW 13.2 % (11.5-15.5)
--- NOTE | 2018-09-25 10:16 | XR ---
EXAMINATION TYPE: XR chest 1V portable DATE OF EXAM: 09/25/2018 Comparison: 08/12/2018 Clinical History: 63-year-old male intubation and line placement Findings: ET tube is satisfactory. NG tube courses below the diaphragm. Left subclavian CVC tip in the cavoatri al junction region. Heart upper limits of normal in size. New layering left pleural effusion with und erlying opacity. Right lung and pleural space are relatively clear. Impression: 1. Left subclavian CVC tip at the cavoatrial junction. ET and NG tube appear satisfactory. 2. New layering left pleural effusion with adjacent atelectasis and/or consolidation.
[2018-09-25 10:24] LABS: Calcium 6.9 mg/dL (8.4-10.2); Phosphorus 6.8 mg/dL (2.5-4.5); Potassium 3.8 mmol/L (3.5-5.1)
[2018-09-25 10:25] LABS: INR 1.3 (<1.2); Prothrombin Time 13.3 sec (9.0-12.0); WBC 63.5 k/uL (3.8-10.6)
[2018-09-25 10:26] LABS: HCT 57.7 % (39.0-53.0)
[2018-09-25] MEDS ORDERED: IPRATROPIUM-ALBUTEROL 3 ML NEB INHALATION PRN (10:28)
[2018-09-25] MEDS ORDERED: NOREPINEPHRINE 4 MG in SODIUM CHLORIDE 0.9% 250 ML IV SCH (10:30)
--- NOTE | 2018-09-25 10:40 | PCN ---
PROCEDURE NOTE PROCEDURE NOTES: Endotracheal tube Intubation. A time-out was completed verifying correct patient, procedure, site, positioning, and implant(s) or special equipment if applicable. The patient was positioned appropriately and an endotracheal tube was placed under direct laryngoscopy. The tube was anchored at 22 cm at the teeth. Correct placement was confirmed by presence of bilateral breath sounds without air sounds in the abdomen on auscultation. An end-tidal CO2 monitor was also used to confirm tracheal placement of the ET tube. A chest x-ray was ordered to assess for pneumothorax and verify endotracheal tube placement. The patient tolerated the procedure well and there were no complications. I used a #4 Lopez blade I intubated this patient with a with a #8 oral tracheal tube. No bedside complications or bleeding. Preop diagnosis is acute septic shock with secondary respiratory failure. Postop diagnosis is acute septic shock with secondary respirator failure. Second procedure is insertion of a triple-lumen catheter site . Insertion is left subclavian vein. Preoperative diagnosis is acute septic shock with secondary respiratory failure. Postoperative diagnosis is acute septic shock with secondary respiratory failure. A time-out was completed verifying correct patient, procedure, site, positioning, and implant(s) or special equipment if applicable. The patient was placed in a dependent position appropriate for triple lumen catheter placement based on the vein to be cannulated. The patient?s right/left shoulder or right/left neck or right/left groin was prepped and draped in sterile fashion. 1% Lidocaine was used to anesthetize the surrounding skin area. A triple lumen 9F Cordis catheter was introduced into the subclavian or internal jugular or common femoral vein using Seldinger technique. The catheter was threaded smoothly over the guide wire and appropriate blood return was obtained. Each lumen of the catheter was evacuated of air and flushed with sterile saline. The catheter was then sutured in place to the skin and a sterile dressing applied. Perfusion to the extremity distal to the point of catheter insertion was checked and found to be adequate. No bedside complication or bleeding. Third procedure is insertion of an art line catheter site of insertion. A time-out was completed verifying correct patient, procedure, site, positioning, and implant(s) or special equipment if applicable. Mack's test was performed to ensure adequate perfusion. The patient's right groin was prepped and draped in sterile fashion. 1% Lidocaine was used to anesthetize the area. An 18G Arrow arterial line was introduced into the radial/femoral artery. The catheter was threaded over the guide wire and the needle was removed with appropriate pulsatile blood return. Blood loss was minimal. The catheter was then sutured in place to the skin and a sterile dressing applied. Perfusion to the extremity distal to the point of catheter insertion was checked and found to be adequate. The patient tolerated the procedure well and there were no complications. No bedside complication or bleeding. MMODL / IJN: [id number] /
--- NOTE | 2018-09-25 10:40 | CONS ---
CONSULTATION CHIEF COMPLAINT: Abdominal pain. Lonnie is a 63-year-old gentleman who is admitted to hospital with colitis. He apparently had a ruptured diverticulitis and was hospitalized 5 weeks ago and at that time had drainage of an abscess and he is to undergo a colonoscopy and have a redo surgery and he had been on antibiotics. He came in complaining of 3 days worth of dull left flank pain and is admitted to hospital for the same. His white cell count was elevated. He is evaluated by a surgeon and Infectious Disease doctors. I was consulted last night as the patient developed atrial fibrillation with rapid ventricular rate. Initially, he was on Cardizem, subsequently, we switched him to IV amiodarone as he has had A fib and subsequently had runs of ventricular tachycardia. On IV amiodarone, patient remains in sinus rhythm this morning with sinus tachycardia. I also started him on IV heparin. He became more unstable this morning appears somewhat confused and combative and appears diaphoretic. The abdominal pain has suddenly worsened and he developed abdominal distention. The patient may have to go to emergent surgery today. I am going to stop the IV heparin. Continue the IV amiodarone. Obtain a 2D echo to evaluate his LV function. PAST MEDICAL HISTORY: Past medical history is significant for diverticulitis, skin disorders, hepatitis B, C. REVIEW OF SYSTEMS: I am unable to obtain from the patient who gets confused. MEDICATIONS: Medications at home included Flagyl, Rocephin, Protonix. ALLERGIES: No known drug allergies. FAMILY HISTORY: Family history is negative for premature coronary artery disease. SOCIAL HISTORY: Significant for smoking, but he quit recently. PHYSICAL EXAMINATION: On exam, heart rate is 120 beats per minute. The patient is in sinus tach. Blood pressure is 139/100. Heart rate is elevated. Respiratory rate is 18. Chest exam reveals diminished air entry at the bases. Heart exam reveals first and second heart sounds. No gallop. No murmur. Abdomen appears distended. Examination of the extremities did not reveal any edema. Peripheral pulses are diminished. LABS: Labs show that the white cell count is 50, hemoglobin 16, platelet count is 202. His potassium is 4.9, BUN is 37, creatinine is 1.5. ASSESSMENT: 1. Acute history of diverticulitis with bowel perforation, probably suggestive of perforated bowel the elevated white cell count. The patient has acute abdomen and respiratory distress. I think they are going to intubate him and patient will need surgery. 2. Paroxysmal atrial fibrillation. 3. Ventricular tachycardia. PLAN: I am going to continue the IV amiodarone at this time. The patient's lactic acid is elevated. I am going to stop the IV heparin. Continue the amiodarone. Obtain a 2D echo. DIMITRY / NEELIMA: [id number] /
[2018-09-25] MEDS ORDERED: SODIUM CHLORIDE 0.9% 1,000 ML IV ONE ×5 (10:47→23:00)
[2018-09-25] MEDS: ANIDULAFUNGIN 100 MG in SODIUM CHLORIDE 0.9% 100 ML IVPB SCH (10:47)
[2018-09-25] MEDS: IPRATROPIUM-ALBUTEROL 3 ML NEB INHALATION SCH ×4 (11:20→23:40)
--- NOTE | 2018-09-25 11:28 | P.PN ---
Subjective History of present illness,taken from records Patient is a 62-year-old male with a known history of. Pericolic abscess in August [address]-guided drainage with drain tube and antibiotics, diverticulitis, hepatitis B, C and nicotine addiction quit 5 weeks ago came to ER with complaints of abdominal pain mainly left upper quadrant for the past 2 days. Pain is very sharp and stabbing type. Previously patient had dull pain as per patient. No radiation of pain. Patient says that his pain gets worse with movement. Patient called his surgeon yesterday and was advised to come to the hospital. Today morning patient had his breakfast and took a nap and suddenly woke up with stabbing pain. Patient also felt nauseated. No vomiting. Denied any fever or chills. No chest pain or shortness of breath. No complaints of back pain. Patient had last bowel movement 2 days ago. Patient is scheduled for colonoscopy on October 17. Patient was seen by Dr. Torrez CT of the abdominal pelvis showed findings likely represent severe colitis, difficult to exclude underlying mucosal abnormality, extensive inflammatory changes as described. Interval ascites has developed, no small left pleural effusion. WBC 23.4 and bilirubin 1.5 09/24/2018 Patient is still having abdominal pain. No fever or chills. Patient does have worsening leukocytosis with WBC count increased to 20 Patient was seen by general surgery and ID. Antibiotics have been changed to Zosyn now. Repeat CT abdomen and pelvis showed minimal interval increase in the amount of free fluid within the abdomen and pelvis. No focal fluid collection to suggest abscess. No nausea no vomiting. Patient does have constipation with last bowel movement 3 days ago Patient is currently nothing by mouth. Current medications reviewed 09/25/2018 Patient overnight developed A. fib with RVR with increased lactic acid, he received 1 dose of IV vancomycin and he was transferred to the intensive care unit. The date is my first day taking care of the patient and he was seen and examined by me in the ICU. Patient was in distress, he was tachypneic and sweating and hypotensive with a blood pressure 99/79, abdomen was distended and tender. No bowel movements, no nausea vomiting. No chest pain or dyspnea. Patient was been evaluated by pulmonary / critical care team and he got intubated. Repeat CT abdomen and pelvis showed minimal interval increase in the amount of free fluid within the abdomen and pelvis. No focal fluid collection to suggest abscess.General surgeons have been contacted for possible surgical intervention. Labs reviewed showing worsening leukocytosis to 60 3.5K , hemoglobin is 19. INR 1.3. Creatinine trending up from 0.9 to 1.5 up to 2.0. Lactic acid 6.0 and repeat 15.8. Urinalysis showing trace protein and glucose with 3 WBC. Repeat chest x-ray showing new left pleural effusion with adjacent atelectasis and/or consultation. Sanitary Engineer evaluated the patient and recommended to hold on heparin drip, and recommended 2-D echo Review of system: N/a Medications reviewed and include: Albuterol, anidulafungin, chlorhexidine, Lovenox, Ativan, morphine, Zofran, Zosyn, propofol, and intravenous vancomycin. Objective - Vital Signs Vital signs: Vital Signs Temp 98.4 F 09/25/18 06:00 Pulse 126 H 09/25/18 08:00 Resp 18 09/25/18 08:00 BP 139/100 09/25/18 08:00 Pulse Ox 94 L 09/25/18 08:00 Intake & Output 09/24/18 09/25/18 09/25/18 18:59 06:59 18:59 Intake Total 600 Output Total 10 Balance 590 Weight 67 kg Intake: Intake, IV Titration 600 Amount Sodium Chloride 0.9% 1, 600 000 ml @ 100 mls/hr IV . Q10H ONE Rx#:[id number] Output: Urine 10 Other: Voiding Method Toilet Urinal # Voids 2 - Exam -GENERAL: The patient is alert and in distress due to his abdominal illness and septic shock HEENT: Pupils are round and equally reacting to light. EOMI. No scleral icterus. No conjunctival pallor. Normocephalic, atraumatic. No pharyngeal erythema. No thyromegaly. CARDIOVASCULAR: S1 and S2 present. No murmurs, rubs, or gallops. PULMONARY: Chest is clear to auscultation, no wheezing or crackles. -ABDOMEN: Abdomen is distended and tender MUSCULOSKELETAL: No joint swelling or deformity. EXTREMITIES: No cyanosis, clubbing, or pedal edema. NEUROLOGICAL: Gross neurological examination did not reveal any focal deficits. SKIN: No rashes. - Labs CBC & Chem 7: 09/25/18 09:50 09/25/18 09:50 Labs: Abnormal Lab Results - Last 24 Hours (Table) 09/24/18 09/24/18 09/25/18 Range/Units 08:11 08:11 03:47 WBC 28.1 H (3.8-10.6) k/uL RBC (4.30-5.90) m/uL Hgb (13.0-17.5) gm/dL Hct 53.7 H (39.0-53.0) % Neutrophils # 24.8 H (1.3-7.7) k/uL Monocytes # 1.1 H (0-1.0) k/uL Basophils # (0-0.2) k/uL PT 12.3 H (9.0-12.0) sec INR 1.2 H (<1.2) Potassium 5.2 H (3.5-5.1) mmol/L Chloride 111 H (98-107) mmol/L Carbon Dioxide 21 L (22-30) mmol/L BUN 24 H (9-20) mg/dL Creatinine (0.66-1.25) mg/dL Glucose 158 H (74-99) mg/dL POC Glucose (mg/dL) (75-99) mg/dL Plasma Lactic Acid Theodore (0.7-2.0) mmol/L Phosphorus (2.5-4.5) mg/dL Total Protein 6.0 L (6.3-8.2) g/dL Albumin 3.0 L (3.5-5.0) g/dL 09/25/18 09/25/18 09/25/18 Range/Units 03:47 03:47 03:47 WBC 46.7 H (3.8-10.6) k/uL RBC 6.75 H (4.30-5.90) m/uL Hgb 20.0 H* (13.0-17.5) gm/dL Hct 64.5 H* (39.0-53.0) % Neutrophils # 40.5 H (1.3-7.7) k/uL Monocytes # 2.6 H (0-1.0) k/uL Basophils # 0.3 H (0-0.2) k/uL PT (9.0-12.0) sec INR (<1.2) Potassium (3.5-5.1) mmol/L Chloride 111 H (98-107) mmol/L Carbon Dioxide 15 L (22-30) mmol/L BUN 37 H (9-20) mg/dL Creatinine 1.56 H (0.66-1.25) mg/dL Glucose 211 H (74-99) mg/dL POC Glucose (mg/dL) (75-99) mg/dL Plasma Lactic Acid Theodore 6.0 H* (0.7-2.0) mmol/L Phosphorus 5.6 H (2.5-4.5) mg/dL Total Protein (6.3-8.2) g/dL Albumin (3.5-5.0) g/dL 09/25/18 09/25/18 Range/Units 05:37 08:10 WBC 50.2 H* (3.8-10.6) k/uL RBC (4.30-5.90) m/uL Hgb (13.0-17.5) gm/dL Hct (39.0-53.0) % Neutrophils # (1.3-7.7) k/uL Monocytes # (0-1.0) k/uL Basophils # (0-0.2) k/uL PT (9.0-12.0) sec INR (<1.2) Potassium (3.5-5.1) mmol/L Chloride (98-107) mmol/L Carbon Dioxide (22-30) mmol/L BUN (9-20) mg/dL Creatinine (0.66-1.25) mg/dL Glucose (74-99) mg/dL POC Glucose (mg/dL) 158 H (75-99) mg/dL Plasma Lactic Acid Theodore (0.7-2.0) mmol/L Phosphorus (2.5-4.5) mg/dL Total Protein (6.3-8.2) g/dL Albumin (3.5-5.0) g/dL Microbiology - Last 24 Hours (Table) 09/23/18 13:54 Blood Culture - Preliminary Blood No Growth after 24 hours Assessment and Plan Assessment: Septic shock, most likely is sources the intra-abdominal infection Acute diverticulitis with possible perforated bowel Paroxysmal atrial fibrillation Ventricular tachycardia Acute renal failure Metabolic encephalopathy Lactic acidosis Left pleural effusion with possible adjacent atelectasis and/or consultation Leukocytosis, most is secondary to intra-abdominal infection and disease Plan: This is a 63 years old male presents with acute diverticulitis, with possible perforation and septic shock. Continue with ICU management. Several consult is following the case including pulmonary/critical care team, cardiology and infectious disease consult. Also call plunger machine operator consult in view of worsening his creatinine. Continue with antibiotics as per infectious disease team.Labs and medication were reviewed.. Continue same treatment. Continue with symptomatic treatment. Resume home medication. Monitor lytes and vitals. DVT and GI prophylaxis. Further recommendations of the clinical course of the patient DVT prophylaxis: Subcutaneous Lovenox GI Prophylaxis: Pepcid Prognosis is guarded
--- NOTE | 2018-09-25 12:26 | CDI ---
Documentation Clarification Form Date: 09/25/2018 12:10:00 PM From: Brigette Del RealCrouchREBECCA anguiano, CCDS Admit Date: 09/23/2018 3:41:00 PM Patient Name: Lonnie Bernardo Visit Number: [id number] Discharge Date: ATTENTION: The Clinical Documentation Specialists (CDI) and [facility] Coding Staff appreciate your assistance in clarifying documentation. Please respond to the clarification below the line at the bottom and electronically sign. The CDI & [facility] Coding staff will review the response and follow-up if needed. Please note: Queries are made part of the Legal Health Record. If you have any questions, please contact the author of this message via ITS. Dr. Maurisio Allen: Per the 09/25 Pulmonary/Critical Care consult: " acute ventilator-dependent respiratory failure secondary to above." "This is an acute respiratory failure secondary to septic shock." History/Risk Factors: Recent pericolic abscesses due to a complicated diverticulitis post percutaneous drainage insertion during admission in August. Smoker, quit 5 weeks ago. *Note: patient is not dependent on home O2, does have a tracheostomy Clinical Indicators: Presented with acute abdominal pain, diagnosed with acute diverticulitis with possible microperforation, worsened after admission, developed severe sepsis with septic shock & metabolic & lactic acidosis requiring transfer to ICU & intubated. Vital signs 09/25: T 98.4, P 133 (weak), R 11-44 (sob), BP 132/102-99/79 PO 93 on vent 09/25 Blood Gases: pH 7.21*, pCO2 29*, pO2 324^, HCO3 12*, T CO2 12*, O2 Sat 99.9 ^. Treatment: IV fluid bolus(es), IV Ms, IV Zofran, IV Levaquin, IV Flagyl, IV Ativan, IV Zosyn on 09/24, IV Cardizem drip on 09/25 w/IV Heparin & Adenosine, IV Amiodarone for atrial fibrillation. In your professional opinion, can you please clarify if these findings signify one of the following conditions? Specificity: Respiratory Failure: o With hypercapnia? o With hypoxia? Other Diagnosis, please specify Unable to determine (Last Revision: December 2017) Acute hypoxic respiratory failure MTDD
--- NOTE | 2018-09-25 13:42 | P.PN ---
Subjective Progress Note Date: 09/25/18 Principal diagnosis: Colitis Patient is known to our service. Patient was hospitalized approximate 6 weeks ago for a pericolonic abscess in the region of the splenic flexure that was thought to be related to diverticulitis. Patient is actually been scheduled for upcoming colonoscopy first week of October. He came to the hospital over the weekend with increasing pain left mid and upper quadrant. Pain began Tuesday of last week. Patient had a CAT scan performed on admission which showed inflammatory changes with bowel wall thickening involving the distal transverse colon splenic flexure and proximal descending colon. The patient had evidence of persistent pain with progressive confusion. Repeat CAT scan yesterday showed some increase in the degree of pericolonic inflammatory change and an increase in the amount of free fluid within the abdomen. Clinically the patient became more ill with increasing tachycardia increasing tachypnea and increasing confusion. Labs showed a climbing white blood cell count with development of lactic acidemia. Patient's ABGs showed significant metabolic acidosis. Patient was placed on the ventilator after being assessed by pulmonary this morning. The patient's case was discussed with the nurse Jed this morning. The CAT scan was able to be reviewed while I was at the outside hospital area given the patient's progressive decline he was boarded for surgery. I discussed the case with Dr. Allen as well. Objective - Vital Signs Vital signs: Vital Signs Temp 97.5 F L 09/25/18 08:30 Pulse 113 H 09/25/18 11:30 Resp 28 H 09/25/18 11:30 BP 119/87 09/25/18 11:30 Pulse Ox 98 09/25/18 11:30 Intake & Output 09/24/18 09/25/18 09/25/18 18:59 06:59 18:59 Intake Total 600 5250 Output Total 10 697 Balance 590 4553 Weight 67 kg Intake: IV 5250 Sodium Chloride 0.9% 1, 250 000 ml @ 125 mls/hr IV . Q8H JARAD Rx#:[id number] Sodium Chloride 0.9% 1, 5000 000 ml @ 999 mls/hr IV . Q1H1M ONE Rx#:[id number] Intake, IV Titration 600 Amount Sodium Chloride 0.9% 1, 600 000 ml @ 100 mls/hr IV . Q10H ONE Rx#:[id number] Output: Gastric Drainage 650 Urine 10 47 Other: Voiding Method Toilet Indwelling Catheter # Voids 2 ABP, PAP, CO, CI - Last Documented Arterial Blood Pressure 117/86 - Exam Abdomen: Mild distention, tenderness unable to be evaluated given the sedation on board - Labs CBC & Chem 7: 09/25/18 09:50 09/25/18 09:50 Labs: Abnormal Lab Results - Last 24 Hours (Table) 09/25/18 09/25/18 09/25/18 Range/Units 03:47 03:47 03:47 WBC 46.7 H (3.8-10.6) k/uL RBC 6.75 H (4.30-5.90) m/uL Hgb 20.0 H* (13.0-17.5) gm/dL Hct 64.5 H* (39.0-53.0) % Neutrophils # 40.5 H (1.3-7.7) k/uL Neutrophils # (Manual) (1.3-7.7) k/uL Monocytes # 2.6 H (0-1.0) k/uL Monocytes # (Manual) (0-1.0) k/uL Basophils # 0.3 H (0-0.2) k/uL Myelocytes # (Manual) (0) k/uL PT 12.3 H (9.0-12.0) sec INR 1.2 H (<1.2) ABG pH (7.35-7.45) ABG pCO2 (35-45) mmHg ABG pO2 (83-108) mmHg ABG HCO3 (21-25) mmol/L ABG Total CO2 (19-24) mmol/L ABG O2 Saturation (94-97) % ABG Lactic Acid (0.5-1.6) mmol/L Chloride 111 H (98-107) mmol/L Carbon Dioxide 15 L (22-30) mmol/L BUN 37 H (9-20) mg/dL Creatinine 1.56 H (0.66-1.25) mg/dL Glucose 211 H (74-99) mg/dL POC Glucose (mg/dL) (75-99) mg/dL Plasma Lactic Acid Theodore (0.7-2.0) mmol/L Calcium (8.4-10.2) mg/dL Phosphorus 5.6 H (2.5-4.5) mg/dL Urine Protein (Negative) Urine Glucose (UA) (Negative) Urine Ketones (Negative) Urine Blood (Negative) Ur Leukocyte Esterase (Negative) Urine RBC (0-5) /hpf Urine Mucus (None) /hpf 09/25/18 09/25/18 09/25/18 Range/Units 03:47 05:37 08:10 WBC 50.2 H* (3.8-10.6) k/uL RBC (4.30-5.90) m/uL Hgb (13.0-17.5) gm/dL Hct (39.0-53.0) % Neutrophils # (1.3-7.7) k/uL Neutrophils # (Manual) 43.60 H (1.3-7.7) k/uL Monocytes # (0-1.0) k/uL Monocytes # (Manual) 3.01 H (0-1.0) k/uL Basophils # (0-0.2) k/uL Myelocytes # (Manual) 0.50 H (0) k/uL PT (9.0-12.0) sec INR (<1.2) ABG pH (7.35-7.45) ABG pCO2 (35-45) mmHg ABG pO2 (83-108) mmHg ABG HCO3 (21-25) mmol/L ABG Total CO2 (19-24) mmol/L ABG O2 Saturation (94-97) % ABG Lactic Acid (0.5-1.6) mmol/L Chloride (98-107) mmol/L Carbon Dioxide (22-30) mmol/L BUN (9-20) mg/dL Creatinine (0.66-1.25) mg/dL Glucose (74-99) mg/dL POC Glucose (mg/dL) 158 H (75-99) mg/dL Plasma Lactic Acid Theodore 6.0 H* (0.7-2.0) mmol/L Calcium (8.4-10.2) mg/dL Phosphorus (2.5-4.5) mg/dL Urine Protein (Negative) Urine Glucose (UA) (Negative) Urine Ketones (Negative) Urine Blood (Negative) Ur Leukocyte Esterase (Negative) Urine RBC (0-5) /hpf Urine Mucus (None) /hpf 09/25/18 09/25/18 09/25/18 Range/Units 08:10 08:15 09:49 WBC (3.8-10.6) k/uL RBC (4.30-5.90) m/uL Hgb (13.0-17.5) gm/dL Hct (39.0-53.0) % Neutrophils # (1.3-7.7) k/uL Neutrophils # (Manual) (1.3-7.7) k/uL Monocytes # (0-1.0) k/uL Monocytes # (Manual) (0-1.0) k/uL Basophils # (0-0.2) k/uL Myelocytes # (Manual) (0) k/uL PT (9.0-12.0) sec INR (<1.2) ABG pH 7.21 L (7.35-7.45) ABG pCO2 29 L (35-45) mmHg ABG pO2 324 H (83-108) mmHg ABG HCO3 12 L (21-25) mmol/L ABG Total CO2 12 L (19-24) mmol/L ABG O2 Saturation 99.9 H (94-97) % ABG Lactic Acid (0.5-1.6) mmol/L Chloride (98-107) mmol/L Carbon Dioxide (22-30) mmol/L BUN (9-20) mg/dL Creatinine (0.66-1.25) mg/dL Glucose (74-99) mg/dL POC Glucose (mg/dL) (75-99) mg/dL Plasma Lactic Acid Theodore 5.8 H* (0.7-2.0) mmol/L Calcium (8.4-10.2) mg/dL Phosphorus (2.5-4.5) mg/dL Urine Protein 1+ H (Negative) Urine Glucose (UA) Trace H (Negative) Urine Ketones Trace H (Negative) Urine Blood Small H (Negative) Ur Leukocyte Esterase Trace H (Negative) Urine RBC 13 H (0-5) /hpf Urine Mucus Rare H (None) /hpf 09/25/18 09/25/18 09/25/18 Range/Units 09:50 09:50 09:50 WBC 63.5 H* (3.8-10.6) k/uL RBC 6.05 H (4.30-5.90) m/uL Hgb 19.0 H (13.0-17.5) gm/dL Hct 57.7 H* (39.0-53.0) % Neutrophils # (1.3-7.7) k/uL Neutrophils # (Manual) (1.3-7.7) k/uL Monocytes # (0-1.0) k/uL Monocytes # (Manual) (0-1.0) k/uL Basophils # (0-0.2) k/uL Myelocytes # (Manual) (0) k/uL PT 13.3 H (9.0-12.0) sec INR 1.3 H (<1.2) ABG pH (7.35-7.45) ABG pCO2 (35-45) mmHg ABG pO2 (83-108) mmHg ABG HCO3 (21-25) mmol/L ABG Total CO2 (19-24) mmol/L ABG O2 Saturation (94-97) % ABG Lactic Acid (0.5-1.6) mmol/L Chloride 120 H (98-107) mmol/L Carbon Dioxide 12 L (22-30) mmol/L BUN 39 H (9-20) mg/dL Creatinine 2.08 H (0.66-1.25) mg/dL Glucose 156 H (74-99) mg/dL POC Glucose (mg/dL) (75-99) mg/dL Plasma Lactic Acid Theodore (0.7-2.0) mmol/L Calcium 6.9 L (8.4-10.2) mg/dL Phosphorus 6.8 H (2.5-4.5) mg/dL Urine Protein (Negative) Urine Glucose (UA) (Negative) Urine Ketones (Negative) Urine Blood (Negative) Ur Leukocyte Esterase (Negative) Urine RBC (0-5) /hpf Urine Mucus (None) /hpf 09/25/18 Range/Units 09:50 WBC (3.8-10.6) k/uL RBC (4.30-5.90) m/uL Hgb (13.0-17.5) gm/dL Hct (39.0-53.0) % Neutrophils # (1.3-7.7) k/uL Neutrophils # (Manual) (1.3-7.7) k/uL Monocytes # (0-1.0) k/uL Monocytes # (Manual) (0-1.0) k/uL Basophils # (0-0.2) k/uL Myelocytes # (Manual) (0) k/uL PT (9.0-12.0) sec INR (<1.2) ABG pH (7.35-7.45) ABG pCO2 (35-45) mmHg ABG pO2 (83-108) mmHg ABG HCO3 (21-25) mmol/L ABG Total CO2 (19-24) mmol/L ABG O2 Saturation (94-97) % ABG Lactic Acid 5.9 H* (0.5-1.6) mmol/L Chloride (98-107) mmol/L Carbon Dioxide (22-30) mmol/L BUN (9-20) mg/dL Creatinine (0.66-1.25) mg/dL Glucose (74-99) mg/dL POC Glucose (mg/dL) (75-99) mg/dL Plasma Lactic Acid Theodore (0.7-2.0) mmol/L Calcium (8.4-10.2) mg/dL Phosphorus (2.5-4.5) mg/dL Urine Protein (Negative) Urine Glucose (UA) (Negative) Urine Ketones (Negative) Urine Blood (Negative) Ur Leukocyte Esterase (Negative) Urine RBC (0-5) /hpf Urine Mucus (None) /hpf Microbiology - Last 24 Hours (Table) 09/23/18 13:54 Blood Culture - Preliminary Blood No Growth after 24 hours Assessment and Plan (1) Colitis Narrative/Plan: Patient with colitis and septic picture. Options reviewed with the patient's family at the bedside. We'll proceed with a exploratory laparotomy with colectomy and probable colostomy. The patient is high risk for any intervention given his degree of sepsis and metabolic acidosis. Unfortunately without surgical intervention it is our belief the patient will have further progressive decline. The risks of the surgery were noted to include but not limited to bleeding, infection, abscess, hernia, splenic injury, progressive sepsis, colitis involving any residual colon, colostomy related complications, long-term respiratory failure, cardiac complications, and . They understand and wish to proceed. Current Visit: Yes Status: Acute Code(s): K52.9 - NONINFECTIVE GASTROENTERITIS AND COLITIS, UNSPECIFIED SNOMED Code(s): 72684247
[2018-09-25] MEDS ORDERED: ROCURONIUM BROMIDE 10 MG/ML 10 ML VIAL IV ONE (14:09)
[2018-09-25] MEDS ORDERED: fentaNYL (PF) 50 MCG/ML 2 ML AMP ONE (14:09)
[2018-09-25] MEDS ORDERED: SODIUM BICARB 8.4% 50 ML SYR (1 MEQ/ML) ONE (14:09)
[2018-09-25] MEDS ORDERED: ALBUMIN HUMAN 25% (12.5gm) 50 ML VIAL ONE (14:09)
[2018-09-25] MEDS ORDERED: ALBUMIN HUMAN 5% (12.5gm) 250 ML BOTTLE IVPB ONE (14:09)
[2018-09-25] MEDS ORDERED: LACTATED RINGERS 1,000 ML IV ONE ×2 (14:59→15:33)
[2018-09-25 16:34] LABS: ABG Base Excess -16.4 mmol/L; ABG HCO3 13 mmol/L (21-25); ABG PCO2 37 mmHg (35-45); ABG PH 7.14 (7.35-7.45); ABG PO2 205 mmHg (83-108); ABG TCO2 14 mmol/L (19-24)
[2018-09-25 17:07] LABS: Glucose,Whole Blood 90 mg/dL (75-99)
--- NOTE | 2018-09-25 17:09 | P.OP ---
Date of Procedure: 09/25/18 Procedure(s) Performed: PREOPERATIVE DIAGNOSIS: Colitis POSTOPERATIVE DIAGNOSIS: Necrotizing/ischemic colitis PROCEDURE: Exploratory laparotomy with subtotal colectomy, partial omentectomy, and ileostomy SURGEON: Lore EBL: 50 mL ANESTHESIA: Gen. COMPLICATIONS: None OPERATIVE PROCEDURE: Patient brought from the ICU and placed on the operating table in the supine position. The patient was intubated prior to arrival. The patient was placed under full general anesthesia. The abdomen was prepped and draped in usual sterile fashion. A vertical incision was made from the subxiphoid to the infraumbilical location. A large volume of serous fluid was evacuated. Over 1 L was removed. The liver had a micronodular appearance to it consistent with cirrhosis. Initially all visible bowel had an ischemic appearance. This included the entirety of the small bowel. The attention was directed to the left colon. From the distal transverse colon to the mid descending colon there was extremely impressive induration with a solid feeling bowel and adjacent retroperitoneum. Initially this had the appearance of [place] malignancy involving the entire area. This clearly seemed to be the source of his septic picture however. This was not creating any significant degree of obstruction with minimally distended proximal colon. The gastrocolic ligament was opened. This was dissected away from the distal transverse colon using the LigaSure device. The white line of Toldt was incised using a Metzenbaum scissors. I was able to mobilize to a certain degree some of the significant induration of the pericolonic fat. I started to feel more comfortable that this was a necrotizing/ischemic colon rather than madison malignancy at this point. I then divided the bowel in the mid transverse colon and also in the distal descending colon using a linear 75 stapler. The mesentery to this section of colon was then divided using the LigaSure device. The specimen was kept on the back table. The mesentery was inspected and no bleeding was seen. The area was irrigated with saline. I then had an intention of performing a end colostomy however as the proximal colon was inspected it persisted in its ischemic appearance. There was induration of the hepatic flexure and ascending colon. The wall of the colon felt thickened as well. I was concerned this was concerning to his septic picture and decided to resect the proximal colon. The cecum and ascending colon were mobilized using blunt dissection and cautery. The bowel was divided at the terminal ileum using a linear 75 stapler. The mesentery of the right colon and proximal transverse colon was divided using a LigaSure device and 0 silk ties for the larger named vessels. No bleeding was seen. At this point the small bowel had a nonischemic appearance. Further irrigation of the abdomen took place. A circular incision was made in the right paramedian location. Dissection through the subcutaneous fat and rectus took place using electrocautery and blunt dissection. The bowel was brought out through this opening. A drain was placed along the left gutter up towards the splenic flexure. This was sutured in place using a 2-0 silk stitch. The midline fascia was then reapproximated using 2 separate #1 double-stranded PDS sutures. 3 separate openings in the incision were left for Telfa brian. Sterile dressings were applied. The ostomy was then matured in a [place] fashion using interrupted 3-0 Vicryl sutures. DISPOSITION: Guarded back to the intensive care unit
[2018-09-25 17:58] LABS: ABG Base Excess -8.3 mmol/L; ABG HCO3 17 mmol/L (21-25); ABG Oxygen Saturation 96.6 % (94-97); ABG PCO2 27 mmHg (35-45); ABG PH 7.39 (7.35-7.45); ABG PO2 79 mmHg (83-108); ABG TCO2 18 mmol/L (19-24)
[2018-09-25] MEDS: NOREPINEPHRINE 16 MG in SODIUM CHLORIDE 0.9% 250 ML IV SCH (19:00)
--- NOTE | 2018-09-25 19:43 | ECHOF ---
Referral Reason:vt MEASUREMENTS -------- HEIGHT: 172.7 cm WEIGHT: 66.7 kg BP: 119/87 RVIDd: 3.1 cm (< 3.3) IVSd: 1.3 cm (0.6 - 1.1) LVIDd: 2.4 cm (3.9 - 5.3) LVPWd: 1.2 cm (0.6 - 1.1) IVSs: 1.3 cm LVIDs: 1.6 cm LVPWs: 1.6 cm LAESV Index (A-L): 18.10 ml/m MV E Sylvester: 0.30 m/s MV DecT: 227 ms MV A Sylvester: 0.49 m/s MV E/A Ratio: 0.61 RAP: 5.00 mmHg RVSP: 9.78 mmHg FINDINGS -------- Resting tachycardia (HR>100bpm). This was a technically difficult study with suboptimal views. The left ventricular size is normal. There is mild concentric left ventricular hypertrophy. Overa ll left ventricular systolic function is normal with, an EF between 65 - 70 %. The right ventricle is normal in size and function. Normal LA size by volume 22+/-6 ml/m2. The right atrium is normal in size. 4 ml of Lumason was utilized for enhancement of images. There is mild aortic valve sclerosis. The mitral valve leaflets are mildly thickened. There is trace to mild mitral regurgitation. Trace tricuspid regurgitation present. Right ventricular systolic pressure is normal at < 35 mmHg. There is no evidence of pulmonary hypertension. The pulmonic valve was not well visualized. The aortic root size is normal. IVC Not well visulized. There is no pericardial effusion. Pleural Effusion with Fibrin. CONCLUSIONS -------- 1. Resting tachycardia (HR>100bpm). 2. This was a technically difficult study with suboptimal views. 3. The left ventricular size is normal. 4. There is mild concentric left ventricular hypertrophy. 5. Overall left ventricular systolic function is normal with, an EF between 65 - 70 %. 6. Normal LA size by volume 22+/-6 ml/m2. 7. 4 ml of Lumason was utilized for enhancement of images. 8. There is mild aortic valve sclerosis. 9. The mitral valve leaflets are mildly thickened. 10. There is trace to mild mitral regurgitation. 11. Trace tricuspid regurgitation present. 12. Right ventricular systolic pressure is normal at < 35 mmHg. 13. There is no evidence of pulmonary hypertension. 14. The pulmonic valve was not well visualized. 15. The aortic root size is normal. 16. IVC Not well visulized. 17. There is no pericardial effusion. 18. Pleural Effusion with Fibrin. INSURANCE AGENT: Anders Perera RDCS
[2018-09-25 20:59] LABS: Hemoglobin A1C 5.1 % (4.0-6.0)
[2018-09-25] MEDS ORDERED: FAMOTIDINE 20 MG/2 ML VIAL IV SCH (21:00)
[2018-09-25] MEDS ORDERED: HEPARIN SODIUM,PORCINE 5,000 UNIT/ML 1 ML VIAL SQ SCH (21:00)
--- NOTE | 2018-09-25 21:31 | P.PN ---
Subjective Progress Note Date: 09/25/18 62-year-old male who has a known history of intra-abdominal abscess from a ruptured diverticuli approximately 5 weeks ago. He was taken care of in hospital and had percutaneous drainage of the abscess. He recently has been following with his surgeon Dr. Torrez, with plans for a follow-up colonoscopy and then any surgical plans to be made after that. The patient had been treated with a course of Rocephin and Flagyl that had stopped on 08/29/2018. The patient relates he really was doing very well until 3 days before admission when he started to have some increasing abdominal pain . He relates he had a normal meal and then he noticed the onset of the left lower flank pain. It increased in amount extended through the left flank down into the buttocks area. The pain became very severe from his flank and back which is why he sought care. Imaging studies were performed with evidence of the significant phlegmon along the sigmoid colon area as well as significant leukocytosis. The patient feels very poorly and does have evidence of dehydration and is being rehydrated per the surgeon. Follow-up computed tomography scan has been requested. Infectious disease consultation for antibiotic therapy. 09/25/2018 the patient's particular the operating room and the subtotal colectomy has been performed ileostomy has been placed. Is noted from conversation with the surgeon there was concerns to ischemic as well as infectious colitis of the colon, at the time of surgery there is also concern for potential malignancy. As noted the patient had evidence of the time of surgery of ischemic/necrotizing colitis. At the time of evaluation yesterday as related the patient was very ill and was seeking input from his surgeon Dr. Torrez before agreeing to any interventions. The events of and reviewed and the patient developed progressive sepsis developed septic shock required transfer to the intensive care unit where he was intubated sedated and mechanically ventilated and had central line placed and initiation of vasopressor therapy before his surgical intervention. Postoperatively the patient remains on the ventilator as well as of vasopressor therapy. Objective - Vital Signs Vital signs: Vital Signs Temp 97.5 F L 09/25/18 17:00 Pulse 121 H 09/25/18 20:29 Resp 28 H 09/25/18 20:29 BP 118/89 09/25/18 19:15 Pulse Ox 100 09/25/18 19:15 Intake & Output 09/25/18 09/25/1819 06:59 18:59 06:59 Intake Total 600 9146.02 150 Output Total 10 837 80 Balance 590 8309.02 70 Weight 67 kg Intake: IV 9075 150 Sodium Chloride 0.9% 1, 775 150 000 ml @ 150 mls/hr IV . Q6H40M [facility] Rx#:[id number] Sodium Chloride 0.9% 1, 6000 000 ml @ 999 mls/hr IV . Q1H1M [facility] Rx#:[id number] Intake, IV Titration 600 71.02 Amount Propofol 1,000 mg In 71.02 Empty Bag 1 bag @ Titrate IV .Q0M [facility] Rx#: [id number] Sodium Chloride 0.9% 1, 600 000 ml @ 100 mls/hr IV . Q10H [facility] Rx#:[id number] Output: Gastric Drainage 650 Drainage 70 Right Abdomen 70 Urine 10 137 10 Estimated Blood Loss 50 Other: Voiding Method Indwelling Catheter Indwelling Catheter ABP, PAP, CO, CI - Last Documented Arterial Blood Pressure 114/71 - Exam 62-year-old man intubated sedated and mechanically ventilated HEENT: Anicteric conjunctiva are pink and moist nasal mucosa grossly intact without significant lesions, there is no thrush. Neck: The neck is supple without significant lymphadenopathy or thyromegaly. Lungs: symmetrical air entry Heart: Tachycardic without murmur Abdomen: Postoperative, ileostomy site reveals evidence of the stoma that is not necrotic no bowel sounds noted Extremities: Some generalized edema pulses low-volume but palpable Neuro: Mechanically ventilated via intubation sedated - Labs CBC & Chem 7: 09/25/18 09:50 09/25/18 09:50 Labs: Abnormal Lab Results - Last 24 Hours (Table) 09/25/18 09/25/18 09/25/18 Range/Units 03:47 03:47 03:47 WBC 46.7 H (3.8-10.6) k/uL RBC 6.75 H (4.30-5.90) m/uL Hgb 20.0 H* (13.0-17.5) gm/dL Hct 64.5 H* (39.0-53.0) % Neutrophils # 40.5 H (1.3-7.7) k/uL Neutrophils # (Manual) (1.3-7.7) k/uL Monocytes # 2.6 H (0-1.0) k/uL Monocytes # (Manual) (0-1.0) k/uL Basophils # 0.3 H (0-0.2) k/uL Myelocytes # (Manual) (0) k/uL PT 12.3 H (9.0-12.0) sec INR 1.2 H (<1.2) ABG pH (7.35-7.45) ABG pCO2 (35-45) mmHg ABG pO2 (83-108) mmHg ABG HCO3 (21-25) mmol/L ABG Total CO2 (19-24) mmol/L ABG O2 Saturation (94-97) % ABG Lactic Acid (0.5-1.6) mmol/L Chloride 111 H (98-107) mmol/L Carbon Dioxide 15 L (22-30) mmol/L BUN 37 H (9-20) mg/dL Creatinine 1.56 H (0.66-1.25) mg/dL Glucose 211 H (74-99) mg/dL POC Glucose (mg/dL) (75-99) mg/dL Plasma Lactic Acid Theodore (0.7-2.0) mmol/L Calcium (8.4-10.2) mg/dL Phosphorus 5.6 H (2.5-4.5) mg/dL Urine Protein (Negative) Urine Glucose (UA) (Negative) Urine Ketones (Negative) Urine Blood (Negative) Ur Leukocyte Esterase (Negative) Urine RBC (0-5) /hpf Urine Mucus (None) /hpf 09/25/18 09/25/18 09/25/18 Range/Units 03:47 05:37 08:10 WBC 50.2 H* (3.8-10.6) k/uL RBC (4.30-5.90) m/uL Hgb (13.0-17.5) gm/dL Hct (39.0-53.0) % Neutrophils # (1.3-7.7) k/uL Neutrophils # (Manual) 43.60 H (1.3-7.7) k/uL Monocytes # (0-1.0) k/uL Monocytes # (Manual) 3.01 H (0-1.0) k/uL Basophils # (0-0.2) k/uL Myelocytes # (Manual) 0.50 H (0) k/uL PT (9.0-12.0) sec INR (<1.2) ABG pH (7.35-7.45) ABG pCO2 (35-45) mmHg ABG pO2 (83-108) mmHg ABG HCO3 (21-25) mmol/L ABG Total CO2 (19-24) mmol/L ABG O2 Saturation (94-97) % ABG Lactic Acid (0.5-1.6) mmol/L Chloride (98-107) mmol/L Carbon Dioxide (22-30) mmol/L BUN (9-20) mg/dL Creatinine (0.66-1.25) mg/dL Glucose (74-99) mg/dL POC Glucose (mg/dL) 158 H (75-99) mg/dL Plasma Lactic Acid Theodore 6.0 H* (0.7-2.0) mmol/L Calcium (8.4-10.2) mg/dL Phosphorus (2.5-4.5) mg/dL Urine Protein (Negative) Urine Glucose (UA) (Negative) Urine Ketones (Negative) Urine Blood (Negative) Ur Leukocyte Esterase (Negative) Urine RBC (0-5) /hpf Urine Mucus (None) /hpf 09/25/18 09/25/18 09/25/18 Range/Units 08:10 08:15 09:49 WBC (3.8-10.6) k/uL RBC (4.30-5.90) m/uL Hgb (13.0-17.5) gm/dL Hct (39.0-53.0) % Neutrophils # (1.3-7.7) k/uL Neutrophils # (Manual) (1.3-7.7) k/uL Monocytes # (0-1.0) k/uL Monocytes # (Manual) (0-1.0) k/uL Basophils # (0-0.2) k/uL Myelocytes # (Manual) (0) k/uL PT (9.0-12.0) sec INR (<1.2) ABG pH 7.21 L (7.35-7.45) ABG pCO2 29 L (35-45) mmHg ABG pO2 324 H (83-108) mmHg ABG HCO3 12 L (21-25) mmol/L ABG Total CO2 12 L (19-24) mmol/L ABG O2 Saturation 99.9 H (94-97) % ABG Lactic Acid (0.5-1.6) mmol/L Chloride (98-107) mmol/L Carbon Dioxide (22-30) mmol/L BUN (9-20) mg/dL Creatinine (0.66-1.25) mg/dL Glucose (74-99) mg/dL POC Glucose (mg/dL) (75-99) mg/dL Plasma Lactic Acid Theodore 5.8 H* (0.7-2.0) mmol/L Calcium (8.4-10.2) mg/dL Phosphorus (2.5-4.5) mg/dL Urine Protein 1+ H (Negative) Urine Glucose (UA) Trace H (Negative) Urine Ketones Trace H (Negative) Urine Blood Small H (Negative) Ur Leukocyte Esterase Trace H (Negative) Urine RBC 13 H (0-5) /hpf Urine Mucus Rare H (None) /hpf 09/25/18 09/25/18 09/25/18 Range/Units 09:50 09:50 09:50 WBC 63.5 H* (3.8-10.6) k/uL RBC 6.05 H (4.30-5.90) m/uL Hgb 19.0 H (13.0-17.5) gm/dL Hct 57.7 H* (39.0-53.0) % Neutrophils # (1.3-7.7) k/uL Neutrophils # (Manual) (1.3-7.7) k/uL Monocytes # (0-1.0) k/uL Monocytes # (Manual) (0-1.0) k/uL Basophils # (0-0.2) k/uL Myelocytes # (Manual) (0) k/uL PT 13.3 H (9.0-12.0) sec INR 1.3 H (<1.2) ABG pH (7.35-7.45) ABG pCO2 (35-45) mmHg ABG pO2 (83-108) mmHg ABG HCO3 (21-25) mmol/L ABG Total CO2 (19-24) mmol/L ABG O2 Saturation (94-97) % ABG Lactic Acid (0.5-1.6) mmol/L Chloride 120 H (98-107) mmol/L Carbon Dioxide 12 L (22-30) mmol/L BUN 39 H (9-20) mg/dL Creatinine 2.08 H (0.66-1.25) mg/dL Glucose 156 H (74-99) mg/dL POC Glucose (mg/dL) (75-99) mg/dL Plasma Lactic Acid Theodore (0.7-2.0) mmol/L Calcium 6.9 L (8.4-10.2) mg/dL Phosphorus 6.8 H (2.5-4.5) mg/dL Urine Protein (Negative) Urine Glucose (UA) (Negative) Urine Ketones (Negative) Urine Blood (Negative) Ur Leukocyte Esterase (Negative) Urine RBC (0-5) /hpf Urine Mucus (None) /hpf 09/25/18 09/25/18 09/25/18 Range/Units 09:50 15:32 17:50 WBC (3.8-10.6) k/uL RBC (4.30-5.90) m/uL Hgb (13.0-17.5) gm/dL Hct (39.0-53.0) % Neutrophils # (1.3-7.7) k/uL Neutrophils # (Manual) (1.3-7.7) k/uL Monocytes # (0-1.0) k/uL Monocytes # (Manual) (0-1.0) k/uL Basophils # (0-0.2) k/uL Myelocytes # (Manual) (0) k/uL PT (9.0-12.0) sec INR (<1.2) ABG pH 7.14 L* (7.35-7.45) ABG pCO2 (35-45) mmHg ABG pO2 205 H (83-108) mmHg ABG HCO3 13 L (21-25) mmol/L ABG Total CO2 14 L (19-24) mmol/L ABG O2 Saturation 99.0 H (94-97) % ABG Lactic Acid 5.9 H* 4.7 H* (0.5-1.6) mmol/L Chloride (98-107) mmol/L Carbon Dioxide (22-30) mmol/L BUN (9-20) mg/dL Creatinine (0.66-1.25) mg/dL Glucose (74-99) mg/dL POC Glucose (mg/dL) (75-99) mg/dL Plasma Lactic Acid Theodore (0.7-2.0) mmol/L Calcium (8.4-10.2) mg/dL Phosphorus (2.5-4.5) mg/dL Urine Protein (Negative) Urine Glucose (UA) (Negative) Urine Ketones (Negative) Urine Blood (Negative) Ur Leukocyte Esterase (Negative) Urine RBC (0-5) /hpf Urine Mucus (None) /hpf 09/25/18 Range/Units 17:56 WBC (3.8-10.6) k/uL RBC (4.30-5.90) m/uL Hgb (13.0-17.5) gm/dL Hct (39.0-53.0) % Neutrophils # (1.3-7.7) k/uL Neutrophils # (Manual) (1.3-7.7) k/uL Monocytes # (0-1.0) k/uL Monocytes # (Manual) (0-1.0) k/uL Basophils # (0-0.2) k/uL Myelocytes # (Manual) (0) k/uL PT (9.0-12.0) sec INR (<1.2) ABG pH (7.35-7.45) ABG pCO2 27 L (35-45) mmHg ABG pO2 79 L (83-108) mmHg ABG HCO3 17 L (21-25) mmol/L ABG Total CO2 18 L (19-24) mmol/L ABG O2 Saturation (94-97) % ABG Lactic Acid (0.5-1.6) mmol/L Chloride (98-107) mmol/L Carbon Dioxide (22-30) mmol/L BUN (9-20) mg/dL Creatinine (0.66-1.25) mg/dL Glucose (74-99) mg/dL POC Glucose (mg/dL) (75-99) mg/dL Plasma Lactic Acid Theodore (0.7-2.0) mmol/L Calcium (8.4-10.2) mg/dL Phosphorus (2.5-4.5) mg/dL Urine Protein (Negative) Urine Glucose (UA) (Negative) Urine Ketones (Negative) Urine Blood (Negative) Ur Leukocyte Esterase (Negative) Urine RBC (0-5) /hpf Urine Mucus (None) /hpf Microbiology - Last 24 Hours (Table) 09/23/18 13:54 Blood Culture - Preliminary Blood No Growth after 48 hours Laboratory Results WBC 63.5 k/uL (3.8-10.6) H* 09/25/18 09:50 RBC 6.05 m/uL (4.30-5.90) H 09/25/18 09:50 Hgb 19.0 gm/dL (13.0-17.5) H 09/25/18 09:50 Hct 57.7 % (39.0-53.0) H* 09/25/18 09:50 MCV 95.2 fL (80.0-100.0) 09/25/18 09:50 MCH 31.4 pg (25.0-35.0) 09/25/18 09:50 MCHC 33.0 g/dL (31.0-37.0) 09/25/18 09:50 RDW 13.2 % (11.5-15.5) 09/25/18 09:50 Plt Count 210 k/uL (150-450) 09/25/18 09:50 Neutrophils % 87 % 09/25/18 03:47 Neutrophils % (Manual) 85 % 09/25/18 08:10 Band Neutrophils % 2 % 09/25/18 08:10 Lymphocytes % 6 % 09/25/18 03:47 Lymphocytes % (Manual) 8 % 09/25/18 08:10 Monocytes % 6 % 09/25/18 03:47 Monocytes % (Manual) 6 % 09/25/18 08:10 Eosinophils % 0 % 09/25/18 03:47 Basophils % 1 % 09/25/18 03:47 Myelocytes % 1 % 09/25/18 08:10 Neutrophils # 40.5 k/uL (1.3-7.7) H 09/25/18 03:47 Neutrophils # (Manual) 43.60 k/uL (1.3-7.7) H 09/25/18 08:10 Lymphocytes # 2.7 k/uL (1.0-4.8) 09/25/18 03:47 Lymphocytes # (Manual) 4.02 k/uL (1.0-4.8) 09/25/18 08:10 Monocytes # 2.6 k/uL (0-1.0) H 09/25/18 03:47 Monocytes # (Manual) 3.01 k/uL (0-1.0) H 09/25/18 08:10 Eosinophils # 0.1 k/uL (0-0.7) 09/25/18 03:47 Basophils # 0.3 k/uL (0-0.2) H 09/25/18 03:47 Myelocytes # (Manual) 0.50 k/uL (0) H 09/25/18 08:10 Nucleated RBCs 0 /100 WBC (0-0) 09/25/18 08:10 Manual Slide Review Performed 09/25/18 08:10 Hypochromasia Slight 09/25/18 08:10 PT 13.3 sec (9.0-12.0) H 09/25/18 09:50 INR 1.3 (<1.2) H 09/25/18 09:50 APTT 25.6 sec (22.0-30.0) 09/25/18 03:47 Sample Site michael 09/25/18 17:56 ABG pH 7.39 (7.35-7.45) 09/25/18 17:56 ABG pCO2 27 mmHg (35-45) L 09/25/18 17:56 ABG pO2 79 mmHg (83-108) L 09/25/18 17:56 ABG HCO3 17 mmol/L (21-25) L 09/25/18 17:56 ABG Total CO2 18 mmol/L (19-24) L 09/25/18 17:56 ABG O2 Saturation 96.6 % (94-97) 09/25/18 17:56 ABG Base Excess -8.3 mmol/L 09/25/18 17:56 Mack Test Yes 09/25/18 17:56 ABG Lactic Acid 4.7 mmol/L (0.5-1.6) H* 09/25/18 17:50 FiO2 50 % 09/25/18 17:56 Sodium 143 mmol/L (137-145) 09/25/18 09:50 Potassium 3.8 mmol/L (3.5-5.1) 09/25/18 09:50 Chloride 120 mmol/L (98-107) H 09/25/18 09:50 Carbon Dioxide 12 mmol/L (22-30) L 09/25/18 09:50 Anion Gap 11 mmol/L 09/25/18 09:50 BUN 39 mg/dL (9-20) H 09/25/18 09:50 Creatinine 2.08 mg/dL (0.66-1.25) H 09/25/18 09:50 Est GFR (CKD-EPI)AfAm 38 (>60 ml/min/1.73 sqM) 09/25/18 09:50 Est GFR (CKD-EPI)NonAf 32 (>60 ml/min/1.73 sqM) 09/25/18 09:50 Glucose 156 mg/dL (74-99) H 09/25/18 09:50 POC Glucose (mg/dL) 90 mg/dL (75-99) 09/25/18 16:55 POC Glu Wood Last Maker ID Vida Barrett 09/25/18 16:[address] Glu mg/dL 100 09/25/18 08:10 Hemoglobin A1c 5.1 % (4.0-6.0) 09/25/18 08:10 Lactic Ac Sepsis Rflx Y 09/25/18 04:39 Plasma Lactic Acid Theodore 5.8 mmol/L (0.7-2.0) H* 09/25/18 08:10 Calcium 6.9 mg/dL (8.4-10.2) L 09/25/18 09:50 Phosphorus 6.8 mg/dL (2.5-4.5) H 09/25/18 09:50 Magnesium 2.0 mg/dL (1.6-2.3) 09/25/18 09:50 Total Bilirubin 1.2 mg/dL (0.2-1.3) 09/24/18 08:11 AST 19 U/L (17-59) 09/24/18 08:11 ALT 27 U/L (21-72) 09/24/18 08:11 Alkaline Phosphatase 67 U/L (38-126) 09/24/18 08:11 Troponin I 0.020 ng/mL (0.000-0.034) 09/25/18 03:47 Total Protein 6.0 g/dL (6.3-8.2) L 09/24/18 08:11 Albumin 3.0 g/dL (3.5-5.0) L 09/24/18 08:11 Lipase 99 U/L (23-300) 09/23/18 13:54 Urine Color Yellow 09/25/18 08:15 Urine Appearance Turbid (Clear) 09/25/18 08:15 Urine pH 5.5 (5.0-8.0) 09/25/18 08:15 Ur Specific [place] 1.028 (1.001-1.035) 09/25/18 08:15 Urine Protein 1+ (Negative) H 09/25/18 08:15 Urine Glucose (UA) Trace (Negative) H 09/25/18 08:15 Urine Ketones Trace (Negative) H 09/25/18 08:15 Urine Blood Small (Negative) H 09/25/18 08:15 Urine Nitrite Negative (Negative) 09/25/18 08:15 Urine Bilirubin Negative (Negative) 09/25/18 08:15 Urine Urobilinogen <2.0 mg/dL (<2.0) 09/25/18 08:15 Ur Leukocyte Esterase Trace (Negative) H 09/25/18 08:15 Urine RBC 13 /hpf (0-5) H 09/25/18 08:15 Urine WBC 3 /hpf (0-5) 09/25/18 08:15 Urine Mucus Rare /hpf (None) H 09/25/18 08:15 Microbiology 09/23/18 13:54 Blood Blood Culture - Preliminary No Growth after 48 hours Assessment and Plan (1) 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 Because of the rapid severity of the pain in his recent history of intra- abdominal infection treated with percutaneous drainage and antibiotic therapy he presented to the emergency center. At the time of admission computed tomography scan reveals evidence of the extensive phlegmon and colitis of the descending colon. The patient has been seen by surgery and rehydration is occurring. A computed tomography scan has been requested. There is concern the patient will need to be taken to the operating room for a surgical intervention for this extensive infectious process. He fortunately is hemodynamic stable at this point in time. Hydration feels somewhat better. Given that he was treated with ceftriaxone and metronidazole we'll alter to piperacillin tazobactam which we give us coverage for more resistant gram- negative pathogens, enterococcus, and Eraxis will be given if there is a fungal process also occurring. Cultures are process. Surgical plan will be developing as he progresses in the next days time. Profound leukocytosis due to the acute infectious process. September 25 2018 the patient is now status post a subtotal colectomy for the ischemic/necrotizing colitis with some concerns of a potential tumor in the descending colon area. Pathology is pending at this time. Antimicrobial therapy with piperacillin tazobactam Eraxis continue. Patient has a leukemoid reaction from the extensive colonic infection/necrosis and now postoperatively will expect this to improve if the patient overall has improvement. Prognosis is poor. Current Visit: No Status: Acute Code(s): K57.20 - DVTRCLI OF LG INT W PERFORATION AND ABSCESS W/O BLEEDING SNOMED Code(s): 822860260 (2) Leukocytosis Current Visit: Yes Status: Acute Code(s): D72.829 - ELEVATED WHITE BLOOD CELL COUNT, UNSPECIFIED SNOMED Code(s): 982421157 (3) Hypoalbuminemia Current Visit: Yes Status: Acute Code(s): E88.09 - OTH DISORDERS OF PLASMA- PROTEIN METABOLISM, NEC SNOMED Code(s): 464412996
[2018-09-25] MEDS: CHLORHEXIDINE GLUCONATE 15 ML CUP MUCOUS MEM SCH (21:38)
[2018-09-25 23:38] LABS: Magnesium 1.9 mg/dL (1.6-2.3)
[2018-09-25 23:44] LABS: Calcium 5.5 mg/dL (8.4-10.2)
[2018-09-26 00:17] LABS: Ionized Calcium 3.6 mg/dL (4.5-5.3)
[2018-09-26 00:19] LABS: Potassium 5.7 mmol/L (3.5-5.1)
[2018-09-26] MEDS ORDERED: SODIUM CHLORIDE 0.9% 1,000 ML IV ONE ×2 (00:46→16:00)
[2018-09-26] MEDS ORDERED: CALCIUM GLUCONATE 1,000 MG in SODIUM CHLORIDE 0.9% 100 ML IVPB ONE ×2 (01:00→06:00)
[2018-09-26] MEDS: ALBUMIN HUMAN 25% 50 ML in EMPTY BAG 1 BAG IVPB SCH ×2 (01:04→01:42)
[2018-09-26] MEDS: SODIUM CHLORIDE 0.9% 99 ML with VASOPRESSIN 20 UNIT IV SCH ×4 (01:04→12:00)
[2018-09-26] MEDS: PIPERACILLIN-TAZOBACTAM 3.375 GM in SODIUM CHLORIDE 0.9% 100 ML IVPB SCH ×3 (01:16→17:31)
[2018-09-26] MEDS ORDERED: SODIUM CHLORIDE 0.9% 2,000 ML IV ONE (03:02)
[2018-09-26 03:05] LABS: ABG Base Excess -27.8 mmol/L; ABG Oxygen Saturation 95.5 % (94-97); ABG PCO2 20 mmHg (35-45); ABG PO2 115 mmHg (83-108); ABG TCO2 5 mmol/L (19-24)
[2018-09-26 03:07] LABS: ABG PH <7.00 (7.35-7.45)
[2018-09-26 03:08] LABS: ABG HCO3 4 mmol/L (21-25)
[2018-09-26] MEDS ORDERED: ALBUMIN HUMAN 25% 50 ML in EMPTY BAG 1 BAG IVPB ONE (03:09)
[2018-09-26] MEDS: IPRATROPIUM-ALBUTEROL 3 ML NEB INHALATION SCH ×4 (03:17→15:54)
[2018-09-26] MEDS ORDERED: DEXTROSE 5% IN WATER 1,000 ML with SODIUM BICARB (1 MEQ/ML) 100 ML IV SCH (03:30)
[2018-09-26 03:40] LABS: HGB 17.4 gm/dL (13.0-17.5); Hypochromasia Marked; MCHC 30.3 g/dL (31.0-37.0); Macrocytosis Slight; Mean Platelet Volume 8.2; Platelet Count 106 k/uL (150-450); RBC 5.62 m/uL (4.30-5.90); RDW 13.1 % (11.5-15.5)
[2018-09-26] MEDS: SODIUM BICARB 8.4% 50 ML SYR (1 MEQ/ML) IV SCH ×4 (03:40→06:02)
[2018-09-26] MEDS: EPINEPHrine 2 MG in DEXTROSE 5% IN WATER 250 ML IV SCH ×10 (04:00→17:32)
[2018-09-26 04:11] LABS: Ionized Calcium 3.6 mg/dL (4.5-5.3)
[2018-09-26 04:12] LABS: HCT 57.4 % (39.0-53.0); MCV 102.2 fL (80.0-100.0)
[2018-09-26 04:18] LABS: Albumin 2.3 g/dL (3.5-5.0); Total Bilirubin 3.4 mg/dL (0.2-1.3); Total Protein 4.2 g/dL (6.3-8.2)
[2018-09-26 04:35] LABS: Potassium 7.7 mmol/L (3.5-5.1)
[2018-09-26 04:36] LABS: Calcium 5.5 mg/dL (8.4-10.2)
[2018-09-26] MEDS: SODIUM CHLORIDE 0.9% 1,000 ML IV SCH ×2 (04:38→15:19)
[2018-09-26] MEDS: VANCOMYCIN 1,250 MG in SODIUM CHLORIDE 0.9% 250 ML IVPB SCH (04:43)
[2018-09-26] MEDS ORDERED: DEXTROSE 50%-WATER 50 ML SYRINGE IVP STA ×2 (04:54→06:54)
[2018-09-26 05:03] LABS: Glucose,Whole Blood 61 mg/dL (75-99)
[2018-09-26] MEDS: PROPOFOL 1,000 MG in EMPTY BAG 1 BAG IV SCH ×2 (05:04→13:17)
[2018-09-26] MEDS ORDERED: ALBUTEROL NEBULIZED 2.5 MG/3 ML INHALATION STA (05:40)
[2018-09-26] MEDS: SODIUM CHLORIDE 0.9% 2,000 ML IV ONE (06:01)
[2018-09-26 06:10] LABS: Glucose,Whole Blood 148 mg/dL (75-99)
[2018-09-26] MEDS ORDERED: INSULIN REGULAR 100 UNIT/ML VIAL IV ONE (06:54)
[2018-09-26 07:34] LABS: ABG Base Excess -24.7 mmol/L; ABG Oxygen Saturation 93.3 % (94-97); ABG PCO2 24 mmHg (35-45); ABG PO2 87 mmHg (83-108); ABG TCO2 7 mmol/L (19-24)
[2018-09-26 07:37] LABS: ABG HCO3 6 mmol/L (21-25); ABG PH 7.02 (7.35-7.45)
--- NOTE | 2018-09-26 07:44 | P.PN ---
Subjective Progress Note Date: 09/26/18 On 09/26/2018 I'm seeing this patient for a follow-up. The patient underwent expiratory laparotomy yesterday. The patient is postop day #1. 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 He underwent a subtotal colectomy and partial omentectomy and diverticular colostomy. Estimated blood loss was 50 mL. Postop the patient was brought into the intensive care unit. Initially was fine however he still required pressors and he was approximately on 50 mics of norepinephrine infusion. As of 9 PM, the patient became progressively more unstable. He started dropping his blood pressure. He had required overnight a total of 7-8 L of IV fluids in the form of normal saline. He was also given 3 of albumin 25%. He was started on vasopressin physiologic dose. He was started on epinephrine which is currently running at 10 mics. He is also on norepinephrine at 30 mics. Unfortunately, no significant urine output. Urine output is minimal at this point. He is going into multisystem organ failure. In summary, the patient's creatinine is up to 2.9 with a mean of 41. His potassium came up to 7.7 earlier this morning. Based on this acute hyperkalemia the patient was given high-dose albuterol nebulizer, 10 mg, in addition to bicarb and a total of 4 A of bicarb was pushed and and he is currently on a bicarb drip with D5 and 3 samples of bicarb at the rate of 100 mL an hour. Subsequent blood gases showed a pH of 7.018 with a pCO2 of 24 and pO2 of 86. He also received calcium gluconate 2 A 1 g and currently is in normal sinus rhythm and there is no acute EKG changes consistent with hyperkalemia. He has also developed shock liver. LFTs are on the rise. He has developed acute leukocytosis and his white cell count is up to 127. Platelet count dropped down to 106. I consulted nephrology and the patient will hopefully undergo an acute emergent dialysis for his hyperkalemia. He is sedated with Diprivan which is running at 30 mics. He is on a mechanical ventilator on assist control mode of ventilation at the rate of 28 with a tidal volume of 550 FiO2 of 50% and a PEEP of 5. Chest x-ray from today shows adequate positioning of the endotracheal tube. The patient developed bilateral pleural effusion left more than right in addition to increased interstitial pulmonary infiltrates. This could be fluid overload versus an acute early ARDS. CVP is around 14. Echocardiogram that was done preoperatively showed a preserved LV function with an ejection fraction of 55-60%. The ileostomy site is viable and pink and the patient remains in the same antibiotic coverage included a combination of Zosyn, vancomycin and any Eraxis Objective - Vital Signs Vital signs: Vital Signs Temp 97.5 F L 09/25/18 17:00 Pulse 105 H 09/26/18 06:32 Resp 28 H 09/25/18 20:29 BP 118/89 09/25/18 19:15 Pulse Ox 100 09/25/18 19:15 Intake & Output 09/25/18 09/26/18 09/26/18 18:59 06:59 18:59 Intake Total 9146.02 596.949 Output Total 837 80 Balance 8309.02 516.949 Intake: IV 9075 150 Sodium Chloride 0.9% 1, 775 150 000 ml @ 150 mls/hr IV . Q6H40M [facility] Rx#:[id number] Sodium Chloride 0.9% 1, 6000 000 ml @ 999 mls/hr IV . Q1H1M [facility] Rx#:[id number] Intake, IV Titration 71.02 446.949 Amount EPINEPHrine 2 mg In 216.72 Dextrose 5% in Water 250 ml @ 10 MCG/MIN 75.6 mls/ hr IV .Q3H20M [facility] Rx#: [id number] Norepinephrine 16 mg In 130.229 Sodium Chloride 0.9% 250 ml @ Titrate IV .Q0M [facility] Rx#:[id number] Propofol 1,000 mg In 71.02 100 Empty Bag 1 bag @ Titrate IV .Q0M [facility] Rx#: [id number] Output: Gastric Drainage 650 Drainage 70 Right Abdomen 70 Urine 137 10 Estimated Blood Loss 50 Other: Voiding Method Indwelling Catheter ABP, PAP, CO, CI - Last Documented Arterial Blood Pressure 114/71 - Exam Gen. appearance the patient is sedated, comfortable intubated on a mechanical ventilator. Orogastric and orotracheal tube are both in place. Output from the orogastric tube is in the order of 100 mL over the past last shift. Head exam was generally normal. There was no scleral icterus or corneal arcus. Mucous membranes were moist. Neck was supple and without jugular venous distension, thyromegaly, or carotid bruits. Carotids were easily palpable bilaterally. There was no adenopathy. The patient has a left subclavian triple-lumen catheter in place. Lungs were clear to auscultation and percussion, and with normal diaphragmatic excursion. No wheezes or rales were noted. Breath sounds equal and symmetrical slightly diminished on the left compared to the right Cardiac exam revealed the PMI to be normally situated and sized. The rhythm was regular and no extrasystoles were noted during several minutes of auscultation. The first and second heart sounds were normal and physiologic splitting of the second heart sound was noted. There were no murmurs, rubs, clicks, or gallops. Abdomen slightly distended. Ileostomy site is viable and pink. No direct tenderness. No rebound tenderness. No guarding. Incision is dry clean and intact. Extremities are cold and mottled. Pulses are diminished in lower oximetry is bilaterally. There is no cyanosis. There is no clubbing. No open wounds or sores. Neurologically the patient is sedated, comfortable secretions with a mechanical ventilator. Pupils are equal and reactive to light around 2-3 mm in size no preferential gaze no facial asymmetry. Otherwise he is deeply sedated and the motor function cannot be adequately assessed. - Labs CBC & Chem 7: 09/26/18 03:00 09/26/18 03:00 Labs: Abnormal Lab Results - Last 24 Hours (Table) 09/25/18 09/25/18 09/25/18 Range/Units 08:10 08:10 08:15 WBC 50.2 H* (3.8-10.6) k/uL RBC (4.30-5.90) m/uL Hgb (13.0-17.5) gm/dL Hct (39.0-53.0) % MCV (80.0-100.0) fL MCHC (31.0-37.0) g/dL Plt Count (150-450) k/uL Neutrophils # (Manual) 43.60 H (1.3-7.7) k/uL Monocytes # (Manual) 3.01 H (0-1.0) k/uL Myelocytes # (Manual) 0.50 H (0) k/uL PT (9.0-12.0) sec INR (<1.2) ABG pH (7.35-7.45) ABG pCO2 (35-45) mmHg ABG pO2 (83-108) mmHg ABG HCO3 (21-25) mmol/L ABG Total CO2 (19-24) mmol/L ABG O2 Saturation (94-97) % ABG Lactic Acid (0.5-1.6) mmol/L Potassium (3.5-5.1) mmol/L Chloride (98-107) mmol/L Carbon Dioxide (22-30) mmol/L BUN (9-20) mg/dL Creatinine (0.66-1.25) mg/dL Glucose (74-99) mg/dL POC Glucose (mg/dL) (75-99) mg/dL Plasma Lactic Acid Theodore 5.8 H* (0.7-2.0) mmol/L Calcium (8.4-10.2) mg/dL Ionized Calcium Ritesh (4.5-5.3) mg/dL Phosphorus (2.5-4.5) mg/dL Total Bilirubin (0.2-1.3) mg/dL AST (17-59) U/L ALT (21-72) U/L Alkaline Phosphatase (38-126) U/L Total Protein (6.3-8.2) g/dL Albumin (3.5-5.0) g/dL Urine Protein 1+ H (Negative) Urine Glucose (UA) Trace H (Negative) Urine Ketones Trace H (Negative) Urine Blood Small H (Negative) Ur Leukocyte Esterase Trace H (Negative) Urine RBC 13 H (0-5) /hpf Urine Mucus Rare H (None) /hpf 09/25/18 09/25/18 09/25/18 Range/Units 09:49 09:50 09:50 WBC 63.5 H* (3.8-10.6) k/uL RBC 6.05 H (4.30-5.90) m/uL Hgb 19.0 H (13.0-17.5) gm/dL Hct 57.7 H* (39.0-53.0) % MCV (80.0-100.0) fL MCHC (31.0-37.0) g/dL Plt Count (150-450) k/uL Neutrophils # (Manual) (1.3-7.7) k/uL Monocytes # (Manual) (0-1.0) k/uL Myelocytes # (Manual) (0) k/uL PT (9.0-12.0) sec INR (<1.2) ABG pH 7.21 L (7.35-7.45) ABG pCO2 29 L (35-45) mmHg ABG pO2 324 H (83-108) mmHg ABG HCO3 12 L (21-25) mmol/L ABG Total CO2 12 L (19-24) mmol/L ABG O2 Saturation 99.9 H (94-97) % ABG Lactic Acid (0.5-1.6) mmol/L Potassium (3.5-5.1) mmol/L Chloride 120 H (98-107) mmol/L Carbon Dioxide 12 L (22-30) mmol/L BUN 39 H (9-20) mg/dL Creatinine 2.08 H (0.66-1.25) mg/dL Glucose 156 H (74-99) mg/dL POC Glucose (mg/dL) (75-99) mg/dL Plasma Lactic Acid Theodore (0.7-2.0) mmol/L Calcium 6.9 L (8.4-10.2) mg/dL Ionized Calcium Ritesh (4.5-5.3) mg/dL Phosphorus 6.8 H (2.5-4.5) mg/dL Total Bilirubin (0.2-1.3) mg/dL AST (17-59) U/L ALT (21-72) U/L Alkaline Phosphatase (38-126) U/L Total Protein (6.3-8.2) g/dL Albumin (3.5-5.0) g/dL Urine Protein (Negative) Urine Glucose (UA) (Negative) Urine Ketones (Negative) Urine Blood (Negative) Ur Leukocyte Esterase (Negative) Urine RBC (0-5) /hpf Urine Mucus (None) /hpf 09/25/18 09/25/18 09/25/18 Range/Units 09:50 09:50 15:32 WBC (3.8-10.6) k/uL RBC (4.30-5.90) m/uL Hgb (13.0-17.5) gm/dL Hct (39.0-53.0) % MCV (80.0-100.0) fL MCHC (31.0-37.0) g/dL Plt Count (150-450) k/uL Neutrophils # (Manual) (1.3-7.7) k/uL Monocytes # (Manual) (0-1.0) k/uL Myelocytes # (Manual) (0) k/uL PT 13.3 H (9.0-12.0) sec INR 1.3 H (<1.2) ABG pH 7.14 L* (7.35-7.45) ABG pCO2 (35-45) mmHg ABG pO2 205 H (83-108) mmHg ABG HCO3 13 L (21-25) mmol/L ABG Total CO2 14 L (19-24) mmol/L ABG O2 Saturation 99.0 H (94-97) % ABG Lactic Acid 5.9 H* (0.5-1.6) mmol/L Potassium (3.5-5.1) mmol/L Chloride (98-107) mmol/L Carbon Dioxide (22-30) mmol/L BUN (9-20) mg/dL Creatinine (0.66-1.25) mg/dL Glucose (74-99) mg/dL POC Glucose (mg/dL) (75-99) mg/dL Plasma Lactic Acid Theodore (0.7-2.0) mmol/L Calcium (8.4-10.2) mg/dL Ionized Calcium Ritesh (4.5-5.3) mg/dL Phosphorus (2.5-4.5) mg/dL Total Bilirubin (0.2-1.3) mg/dL AST (17-59) U/L ALT (21-72) U/L Alkaline Phosphatase (38-126) U/L Total Protein (6.3-8.2) g/dL Albumin (3.5-5.0) g/dL Urine Protein (Negative) Urine Glucose (UA) (Negative) Urine Ketones (Negative) Urine Blood (Negative) Ur Leukocyte Esterase (Negative) Urine RBC (0-5) /hpf Urine Mucus (None) /hpf 09/25/18 09/25/18 09/25/18 Range/Units 17:50 17:56 23:10 WBC (3.8-10.6) k/uL RBC (4.30-5.90) m/uL Hgb (13.0-17.5) gm/dL Hct (39.0-53.0) % MCV (80.0-100.0) fL MCHC (31.0-37.0) g/dL Plt Count (150-450) k/uL Neutrophils # (Manual) (1.3-7.7) k/uL Monocytes # (Manual) (0-1.0) k/uL Myelocytes # (Manual) (0) k/uL PT (9.0-12.0) sec INR (<1.2) ABG pH (7.35-7.45) ABG pCO2 27 L (35-45) mmHg ABG pO2 79 L (83-108) mmHg ABG HCO3 17 L (21-25) mmol/L ABG Total CO2 18 L (19-24) mmol/L ABG O2 Saturation (94-97) % ABG Lactic Acid 4.7 H* (0.5-1.6) mmol/L Potassium (3.5-5.1) mmol/L Chloride 123 H (98-107) mmol/L Carbon Dioxide 11 L (22-30) mmol/L BUN 44 H (9-20) mg/dL Creatinine 2.44 H (0.66-1.25) mg/dL Glucose 108 H (74-99) mg/dL POC Glucose (mg/dL) (75-99) mg/dL Plasma Lactic Acid Theodore (0.7-2.0) mmol/L Calcium 5.5 L* (8.4-10.2) mg/dL Ionized Calcium Ritesh (4.5-5.3) mg/dL Phosphorus (2.5-4.5) mg/dL Total Bilirubin (0.2-1.3) mg/dL AST (17-59) U/L ALT (21-72) U/L Alkaline Phosphatase (38-126) U/L Total Protein (6.3-8.2) g/dL Albumin (3.5-5.0) g/dL Urine Protein (Negative) Urine Glucose (UA) (Negative) Urine Ketones (Negative) Urine Blood (Negative) Ur Leukocyte Esterase (Negative) Urine RBC (0-5) /hpf Urine Mucus (None) /hpf 09/25/18 09/26/18 09/26/18 Range/Units 23:54 03:00 03:00 WBC 127.5 H* (3.8-10.6) k/uL RBC (4.30-5.90) m/uL Hgb (13.0-17.5) gm/dL Hct 57.4 H* (39.0-53.0) % MCV 102.2 H D (80.0-100.0) fL MCHC 30.3 L (31.0-37.0) g/dL Plt Count 106 L (150-450) k/uL Neutrophils # (Manual) (1.3-7.7) k/uL Monocytes # (Manual) (0-1.0) k/uL Myelocytes # (Manual) (0) k/uL PT (9.0-12.0) sec INR (<1.2) ABG pH (7.35-7.45) ABG pCO2 (35-45) mmHg ABG pO2 (83-108) mmHg ABG HCO3 (21-25) mmol/L ABG Total CO2 (19-24) mmol/L ABG O2 Saturation (94-97) % ABG Lactic Acid (0.5-1.6) mmol/L Potassium 5.7 H 7.7 H* (3.5-5.1) mmol/L Chloride 122 H (98-107) mmol/L Carbon Dioxide 7 L* (22-30) mmol/L BUN 41 H (9-20) mg/dL Creatinine 2.98 H (0.66-1.25) mg/dL Glucose 47 L* (74-99) mg/dL POC Glucose (mg/dL) (75-99) mg/dL Plasma Lactic Acid Theodore (0.7-2.0) mmol/L Calcium 5.5 L* (8.4-10.2) mg/dL Ionized Calcium Ritesh 3.6 L 3.6 L (4.5-5.3) mg/dL Phosphorus (2.5-4.5) mg/dL Total Bilirubin 3.4 H (0.2-1.3) mg/dL AST 969 H (17-59) U/L ALT 303 H (21-72) U/L Alkaline Phosphatase 131 H (38-126) U/L Total Protein 4.2 L (6.3-8.2) g/dL Albumin 2.3 L (3.5-5.0) g/dL Urine Protein (Negative) Urine Glucose (UA) (Negative) Urine Ketones (Negative) Urine Blood (Negative) Ur Leukocyte Esterase (Negative) Urine RBC (0-5) /hpf Urine Mucus (None) /hpf 09/26/18 09/26/18 09/26/18 Range/Units 03:01 04:51 05:59 WBC (3.8-10.6) k/uL RBC (4.30-5.90) m/uL Hgb (13.0-17.5) gm/dL Hct (39.0-53.0) % MCV (80.0-100.0) fL MCHC (31.0-37.0) g/dL Plt Count (150-450) k/uL Neutrophils # (Manual) (1.3-7.7) k/uL Monocytes # (Manual) (0-1.0) k/uL Myelocytes # (Manual) (0) k/uL PT (9.0-12.0) sec INR (<1.2) ABG pH <7.00 L* (7.35-7.45) ABG pCO2 20 L (35-45) mmHg ABG pO2 115 H (83-108) mmHg ABG HCO3 4 L* (21-25) mmol/L ABG Total CO2 5 L (19-24) mmol/L ABG O2 Saturation (94-97) % ABG Lactic Acid (0.5-1.6) mmol/L Potassium (3.5-5.1) mmol/L Chloride (98-107) mmol/L Carbon Dioxide (22-30) mmol/L BUN (9-20) mg/dL Creatinine (0.66-1.25) mg/dL Glucose (74-99) mg/dL POC Glucose (mg/dL) 61 L 148 H (75-99) mg/dL Plasma Lactic Acid Theodore (0.7-2.0) mmol/L Calcium (8.4-10.2) mg/dL Ionized Calcium Ritesh (4.5-5.3) mg/dL Phosphorus (2.5-4.5) mg/dL Total Bilirubin (0.2-1.3) mg/dL AST (17-59) U/L ALT (21-72) U/L Alkaline Phosphatase (38-126) U/L Total Protein (6.3-8.2) g/dL Albumin (3.5-5.0) g/dL Urine Protein (Negative) Urine Glucose (UA) (Negative) Urine Ketones (Negative) Urine Blood (Negative) Ur Leukocyte Esterase (Negative) Urine RBC (0-5) /hpf Urine Mucus (None) /hpf Microbiology - Last 24 Hours (Table) 09/23/18 13:54 Blood Culture - Preliminary Blood No Growth after 48 hours Assessment and Plan Plan: Assessment 1 acute septic shock , and multisystem organ failure. The patient presented with acute ischemic bowel and the patient underwent extensive laparotomy and subtotal colectomy and partial omentectomy for necrotizing/ischemic colitis. The patient has also given an ileostomy. The patient is postop day #1. 2 acute ventilator-dependent respiratory failure secondary to above. The patient was intubated due to his severe metabolic acidosis. This is an acute respiratory failure secondary to septic shock 3 acute kidney injury secondary to septic shock/profound hypotension. The patient is profoundly acidotic at this point in time. The patient also developed an acute hyperkalemia. 4 acute leukocytosis 5 acute lactic acidosis 6 atrial fibrillation with rapid ventricular response due to sepsis, converted and the patient's rhythm is back to sinus 7 history of that his been hepatitis C 8 acute shock liver secondary to septic shock and profound hypotension 9 severe anion gap metabolic acidosis secondary to above 10 acute hypoglycemia secondary to above 11 acute thrombocytopenia, likely consumptive secondary to sepsis. Rule out early DIC 12 bilateral pulmonary infiltrates and effusion on the left, rule out early ARDS Plan The patient is profoundly sick and he has signs of acute septic shock and multisystem organ failure. The patient is postop day #1. Ileostomy site is still viable. Nevertheless the patient became profoundly hypotensive and developed multisystem organ failure. Ongoing problem is the hemodynamic instability, hypotension and acute kidney injury and acute hyperkalemia. We have resuscitatedaggressively with IV fluids both crystalloids and colloids. He is on a combination of pressors and currently is in a combination of norepinephrine, epinephrine and vasopressin. He has received adequate amount of IV fluids. He is on the appropriate antibiotic coverage. He will need dialysis. Unfortunately I'm unable to previous separate Anemia acutely. He was given calcium gluconate. He was given bicarb. He was given albuterol solution via nebulization. He will need a dialysis catheter emergently and nephrology has been consulted for emergent dialysis. No acute EKG changes related to hyperkalemia. We'll continue vent support. No need for any vent changes for now. The most recent blood gases was reviewed. There is a consent hours development of ARDS secondary to septic shock and multisystem organ failure. We will continue the bicarb infusion for now. Monitor the electrolytes every 4 hours. Monitor liver function tests. General surgeries on the case. ID is on the case. Nephrology has been involved. We'll continue to follow make further recommendations based on the progress. The patient is critically ill. Evaluation was done and more than 40 min throughout the day, and the family was updated on the condition. Condition is extremely critical. High risk of mortality. Time with Patient: Greater than 30
[2018-09-26 07:45] LABS: Band Neutrophils % 6 %; Metamyelocytes % 8 %; Myelocytes % 17 %; Neutrophils % (M) 48 %; Nucleated Red Blood Cells 5 /100 WBC (0-0); Promyelocytes % 2 %; Total Cells Counted 200
[2018-09-26] MEDS ORDERED: DEXTROSE 5% IN WATER 1,000 ML with SODIUM BICARB (1 MEQ/ML) 150 ML IV SCH (07:45)
[2018-09-26 07:46] LABS: Basophils # (M) 1.21 k/uL (0-0.2); Lymphocytes # (M) 15.78 k/uL (1.0-4.8); Metamyelocytes # (M) 9.71 k/uL (0); Myelocytes # (M) 20.64 k/uL (0); Promyelocytes # (M) 2.43 k/uL (0); WBC 121.4 k/uL (3.8-10.6)
[2018-09-26 07:49] LABS: Toxic Granulation Present
[2018-09-26] MEDS ORDERED: SODIUM BICARB 8.4% 50 ML SYR (1 MEQ/ML) IV STA ×2 (07:51→15:59)
[2018-09-26] MEDS ORDERED: LIDOCAINE 1% INJ 10MG/ML (20 ML MDV) ONE (08:08)
[2018-09-26] MEDS ORDERED: VANCOMYCIN IV PER PHARMACY 1 EACH MISC MISCELLANE PRN (08:14)
[2018-09-26 08:18] VITALS: BP 92/32
[2018-09-26] MEDS: ANIDULAFUNGIN 100 MG in SODIUM CHLORIDE 0.9% 100 ML IVPB SCH (08:18)
[2018-09-26] MEDS: CHLORHEXIDINE GLUCONATE 15 ML CUP MUCOUS MEM SCH (08:20)
--- NOTE | 2018-09-26 08:22 | XR ---
EXAMINATION TYPE: XR chest 1V portable DATE OF EXAM: 09/26/2018 COMPARISON: 09/25/2018 HISTORY: Endotracheal tube placement. Ventilatory dependent respiratory failure. TECHNIQUE: Single frontal view of the chest is obtained. FINDINGS: There is interval worsening of the bilateral patchy opacities and left basilar consolidati on with obscuration of the costophrenic angles and hemidiaphragms. Opacities appear predominantly int erstitial with a few alveolar opacities at the lung bases. There is now obscuration of the cardiomedi astinal silhouette on the left. Endotracheal tube and enteric tubes appear appropriately placed. Left central venous catheter from a subclavian approach terminates appropriately in the cavoatrial juncti on. No sizable pneumothorax. IMPRESSION: Worsening bilateral opacities now obscuring the left heart border and hemidiaphragms. Co nsiderations are for ARDS, multifocal pneumonia or less likely pulmonary edema. Small left and trace right pleural effusions are present.
[2018-09-26] MEDS ORDERED: ENOXAPARIN 40 MG/0.4 ML SYRINGE SQ SCH (09:00)
--- NOTE | 2018-09-26 09:35 | P.PN ---
Subjective History of present illness,taken from records Patient is a 62-year-old male with a known history of. Pericolic abscess in August [address]-guided drainage with drain tube and antibiotics, diverticulitis, hepatitis B, C and nicotine addiction quit 5 weeks ago came to ER with complaints of abdominal pain mainly left upper quadrant for the past 2 days. Pain is very sharp and stabbing type. Previously patient had dull pain as per patient. No radiation of pain. Patient says that his pain gets worse with movement. Patient called his surgeon yesterday and was advised to come to the hospital. Today morning patient had his breakfast and took a nap and suddenly woke up with stabbing pain. Patient also felt nauseated. No vomiting. Denied any fever or chills. No chest pain or shortness of breath. No complaints of back pain. Patient had last bowel movement 2 days ago. Patient is scheduled for colonoscopy on October 17. Patient was seen by Dr. Torrez CT of the abdominal pelvis showed findings likely represent severe colitis, difficult to exclude underlying mucosal abnormality, extensive inflammatory changes as described. Interval ascites has developed, no small left pleural effusion. WBC 23.4 and bilirubin 1.5 09/24/2018 Patient is still having abdominal pain. No fever or chills. Patient does have worsening leukocytosis with WBC count increased to 20 Patient was seen by general surgery and ID. Antibiotics have been changed to Zosyn now. Repeat CT abdomen and pelvis showed minimal interval increase in the amount of free fluid within the abdomen and pelvis. No focal fluid collection to suggest abscess. No nausea no vomiting. Patient does have constipation with last bowel movement 3 days ago Patient is currently nothing by mouth. Current medications reviewed 09/25/2018 Patient overnight developed A. fib with RVR with increased lactic acid, he received 1 dose of IV vancomycin and he was transferred to the intensive care unit. The date is my first day taking care of the patient and he was seen and examined by me in the ICU. Patient was in distress, he was tachypneic and sweating and hypotensive with a blood pressure 99/79, abdomen was distended and tender. No bowel movements, no nausea vomiting. No chest pain or dyspnea. Patient was been evaluated by pulmonary / critical care team and he got intubated. Repeat CT abdomen and pelvis showed minimal interval increase in the amount of free fluid within the abdomen and pelvis. No focal fluid collection to suggest abscess.General surgeons have been contacted for possible surgical intervention. Labs reviewed showing worsening leukocytosis to 60 3.5K , hemoglobin is 19. INR 1.3. Creatinine trending up from 0.9 to 1.5 up to 2.0. Lactic acid 6.0 and repeat 15.8. Urinalysis showing trace protein and glucose with 3 WBC. Repeat chest x-ray showing new left pleural effusion with adjacent atelectasis and/or consultation. Scrap Baler evaluated the patient and recommended to hold on heparin drip, and recommended 2-D echo 09/26/2018 Patient status post exploratory laparotomy yesterday associated with subtotal colectomy, partial omentectomy, and ileostomy. Today postop day #1. Patient remains in the ICU intubated and sedated. wound looks closed with no surrounding cellulitis. Patient currently on leave of its and Vasotec. He needed several boluses of IV fluids. His chest x-ray showing pulmonary congestion versus usually ARDS. He is still on multiple antibiotics as per infectious disease recommendation. Surgical critical care team are following the patient closely. His WBC is up to 121.4K today. He is acidotic With pH 7.02. Creatinine up to 2.9. Lactic acid 5.5. Liver enzymes are moderately elevated. Glass Grinder been consulted Review of system: N/a Medications reviewed and include: Albuterol, anidulafungin, chlorhexidine, Lovenox, Ativan, morphine, Zofran, Zosyn, propofol, and intravenous vancomycin. Objective - Vital Signs Vital signs: Vital Signs Temp 97.4 F L 09/26/18 04:00 Pulse 106 H 09/26/18 08:00 Resp 29 H 09/26/18 08:00 BP 92/32 09/25/18 21:30 Pulse Ox 89 L 09/26/18 05:00 Intake & Output 09/25/18 09/26/18 09/26/18 18:59 06:59 18:59 Intake Total 9146.02 8796.949 150 Output Total 837 1021 Balance 8309.02 7775.949 150 Weight 90 kg Intake: IV 9075 7550 150 Dextrose 5% in Water 1, 400 100 000 ml @ 100 mls/hr IV . Q11H [facility] with Sodium Bicarb (1 Meq/ml) 100 ml Rx#:[id number] Sodium Chloride 0.9% 1, 775 1150 50 000 ml @ 150 mls/hr IV . Q6H40M [facility] Rx#:[id number] Sodium Chloride 0.9% 1, 6000 6000 000 ml @ 999 mls/hr IV . Q1H1M [facility] Rx#:[id number] Intake, IV Titration 71.02 1246.949 Amount Albumin Human 25% 50 ml 150 In Empty Bag 1 bag @ 100 mls/hr IVPB ONCE ONE Rx#: [id number] Calcium Gluconate 1,000 100 mg In Sodium Chloride 0.9 % 100 ml @ 100 mls/hr IVPB ONCE ONE Rx#: [id number] Calcium Gluconate 1,000 100 mg In Sodium Chloride 0.9 % 100 ml @ 100 mls/hr IVPB ONCE ONE Rx#: [id number] EPINEPHrine 2 mg In 216.72 Dextrose 5% in Water 250 ml @ 10 MCG/MIN 75.6 mls/ hr IV .Q3H20M [facility] Rx#: [id number] Norepinephrine 16 mg In 130.229 Sodium Chloride 0.9% 250 ml @ Titrate IV .Q0M [facility] Rx#:[id number] Piperacillin-Tazobactam 3 200 .375 gm In Sodium Chloride 0.9% 100 ml @ 25 mls/hr IVPB Q8HR [facility] Rx# :[id number] Propofol 1,000 mg In 71.02 100 Empty Bag 1 bag @ Titrate IV .Q0M [facility] Rx#: [id number] Vancomycin 1,250 mg In 250 Sodium Chloride 0.9% 250 ml @ 125 mls/hr IVPB Q24H [facility] Rx#:[id number] Output: Gastric Drainage 650 900 Drainage 70 Right Abdomen 70 Urine 137 51 Estimated Blood Loss 50 Other: Voiding Method Indwelling Catheter Indwelling Catheter ABP, PAP, CO, CI - Last Documented Arterial Blood Pressure 95/47 - Exam -GENERAL: The patient is intubated and sedated HEENT: Pupils are round and equally reacting to light. EOMI. No scleral icterus. No conjunctival pallor. Normocephalic, atraumatic. No pharyngeal erythema. No thyromegaly. CARDIOVASCULAR: S1 and S2 present. No murmurs, rubs, or gallops. PULMONARY: Chest is clear to auscultation, no wheezing or crackles. -ABDOMEN: Soft, mildly distended, incision in the middle looks intact. MUSCULOSKELETAL: No joint swelling or deformity. EXTREMITIES: No cyanosis, clubbing, or pedal edema. NEUROLOGICAL: Gross neurological examination did not reveal any focal deficits. SKIN: No rashes. - Labs CBC & Chem 7: 09/26/18 03:00 09/26/18 03:00 Labs: Abnormal Lab Results - Last 24 Hours (Table) 09/25/18 09/25/18 09/25/18 Range/Units 09:49 09:50 09:50 WBC 63.5 H* (3.8-10.6) k/uL RBC 6.05 H (4.30-5.90) m/uL Hgb 19.0 H (13.0-17.5) gm/dL Hct 57.7 H* (39.0-53.0) % MCV (80.0-100.0) fL MCHC (31.0-37.0) g/dL Plt Count (150-450) k/uL Neutrophils # (Manual) (1.3-7.7) k/uL Lymphocytes # (Manual) (1.0-4.8) k/uL Monocytes # (Manual) (0-1.0) k/uL Basophils # (Manual) (0-0.2) k/uL Metamyelocytes # (Man) (0) k/uL Myelocytes # (Manual) (0) k/uL Promyelocytes # (Man) (0) k/uL Nucleated RBCs (0-0) /100 WBC PT (9.0-12.0) sec INR (<1.2) ABG pH 7.21 L (7.35-7.45) ABG pCO2 29 L (35-45) mmHg ABG pO2 324 H (83-108) mmHg ABG HCO3 12 L (21-25) mmol/L ABG Total CO2 12 L (19-24) mmol/L ABG O2 Saturation 99.9 H (94-97) % ABG Lactic Acid (0.5-1.6) mmol/L Potassium (3.5-5.1) mmol/L Chloride 120 H (98-107) mmol/L Carbon Dioxide 12 L (22-30) mmol/L BUN 39 H (9-20) mg/dL Creatinine 2.08 H (0.66-1.25) mg/dL Glucose 156 H (74-99) mg/dL POC Glucose (mg/dL) (75-99) mg/dL Calcium 6.9 L (8.4-10.2) mg/dL Ionized Calcium Ritesh (4.5-5.3) mg/dL Phosphorus 6.8 H (2.5-4.5) mg/dL Total Bilirubin (0.2-1.3) mg/dL AST (17-59) U/L ALT (21-72) U/L Alkaline Phosphatase (38-126) U/L Total Protein (6.3-8.2) g/dL Albumin (3.5-5.0) g/dL 09/25/18 09/25/18 09/25/18 Range/Units 09:50 09:50 15:32 WBC (3.8-10.6) k/uL RBC (4.30-5.90) m/uL Hgb (13.0-17.5) gm/dL Hct (39.0-53.0) % MCV (80.0-100.0) fL MCHC (31.0-37.0) g/dL Plt Count (150-450) k/uL Neutrophils # (Manual) (1.3-7.7) k/uL Lymphocytes # (Manual) (1.0-4.8) k/uL Monocytes # (Manual) (0-1.0) k/uL Basophils # (Manual) (0-0.2) k/uL Metamyelocytes # (Man) (0) k/uL Myelocytes # (Manual) (0) k/uL Promyelocytes # (Man) (0) k/uL Nucleated RBCs (0-0) /100 WBC PT 13.3 H (9.0-12.0) sec INR 1.3 H (<1.2) ABG pH 7.14 L* (7.35-7.45) ABG pCO2 (35-45) mmHg ABG pO2 205 H (83-108) mmHg ABG HCO3 13 L (21-25) mmol/L ABG Total CO2 14 L (19-24) mmol/L ABG O2 Saturation 99.0 H (94-97) % ABG Lactic Acid 5.9 H* (0.5-1.6) mmol/L Potassium (3.5-5.1) mmol/L Chloride (98-107) mmol/L Carbon Dioxide (22-30) mmol/L BUN (9-20) mg/dL Creatinine (0.66-1.25) mg/dL Glucose (74-99) mg/dL POC Glucose (mg/dL) (75-99) mg/dL Calcium (8.4-10.2) mg/dL Ionized Calcium Ritesh (4.5-5.3) mg/dL Phosphorus (2.5-4.5) mg/dL Total Bilirubin (0.2-1.3) mg/dL AST (17-59) U/L ALT (21-72) U/L Alkaline Phosphatase (38-126) U/L Total Protein (6.3-8.2) g/dL Albumin (3.5-5.0) g/dL 09/25/18 09/25/18 09/25/18 Range/Units 17:50 17:56 23:10 WBC (3.8-10.6) k/uL RBC (4.30-5.90) m/uL Hgb (13.0-17.5) gm/dL Hct (39.0-53.0) % MCV (80.0-100.0) fL MCHC (31.0-37.0) g/dL Plt Count (150-450) k/uL Neutrophils # (Manual) (1.3-7.7) k/uL Lymphocytes # (Manual) (1.0-4.8) k/uL Monocytes # (Manual) (0-1.0) k/uL Basophils # (Manual) (0-0.2) k/uL Metamyelocytes # (Man) (0) k/uL Myelocytes # (Manual) (0) k/uL Promyelocytes # (Man) (0) k/uL Nucleated RBCs (0-0) /100 WBC PT (9.0-12.0) sec INR (<1.2) ABG pH (7.35-7.45) ABG pCO2 27 L (35-45) mmHg ABG pO2 79 L (83-108) mmHg ABG HCO3 17 L (21-25) mmol/L ABG Total CO2 18 L (19-24) mmol/L ABG O2 Saturation (94-97) % ABG Lactic Acid 4.7 H* (0.5-1.6) mmol/L Potassium (3.5-5.1) mmol/L Chloride 123 H (98-107) mmol/L Carbon Dioxide 11 L (22-30) mmol/L BUN 44 H (9-20) mg/dL Creatinine 2.44 H (0.66-1.25) mg/dL Glucose 108 H (74-99) mg/dL POC Glucose (mg/dL) (75-99) mg/dL Calcium 5.5 L* (8.4-10.2) mg/dL Ionized Calcium Ritesh (4.5-5.3) mg/dL Phosphorus (2.5-4.5) mg/dL Total Bilirubin (0.2-1.3) mg/dL AST (17-59) U/L ALT (21-72) U/L Alkaline Phosphatase (38-126) U/L Total Protein (6.3-8.2) g/dL Albumin (3.5-5.0) g/dL 09/25/18 09/26/18 09/26/18 Range/Units 23:54 03:00 03:00 WBC 121.4 H* (3.8-10.6) k/uL RBC (4.30-5.90) m/uL Hgb (13.0-17.5) gm/dL Hct 57.4 H* (39.0-53.0) % MCV 102.2 H D (80.0-100.0) fL MCHC 30.3 L (31.0-37.0) g/dL Plt Count 106 L (150-450) k/uL Neutrophils # (Manual) 65.50 H (1.3-7.7) k/uL Lymphocytes # (Manual) 15.78 H (1.0-4.8) k/uL Monocytes # (Manual) 8.50 H (0-1.0) k/uL Basophils # (Manual) 1.21 H (0-0.2) k/uL Metamyelocytes # (Man) 9.71 H (0) k/uL Myelocytes # (Manual) 20.64 H (0) k/uL Promyelocytes # (Man) 2.43 H (0) k/uL Nucleated RBCs 5 H (0-0) /100 WBC PT (9.0-12.0) sec INR (<1.2) ABG pH (7.35-7.45) ABG pCO2 (35-45) mmHg ABG pO2 (83-108) mmHg ABG HCO3 (21-25) mmol/L ABG Total CO2 (19-24) mmol/L ABG O2 Saturation (94-97) % ABG Lactic Acid (0.5-1.6) mmol/L Potassium 5.7 H 7.7 H* (3.5-5.1) mmol/L Chloride 122 H (98-107) mmol/L Carbon Dioxide 7 L* (22-30) mmol/L BUN 41 H (9-20) mg/dL Creatinine 2.98 H (0.66-1.25) mg/dL Glucose 47 L* (74-99) mg/dL POC Glucose (mg/dL) (75-99) mg/dL Calcium 5.5 L* (8.4-10.2) mg/dL Ionized Calcium Ritesh 3.6 L 3.6 L (4.5-5.3) mg/dL Phosphorus (2.5-4.5) mg/dL Total Bilirubin 3.4 H (0.2-1.3) mg/dL AST 969 H (17-59) U/L ALT 303 H (21-72) U/L Alkaline Phosphatase 131 H (38-126) U/L Total Protein 4.2 L (6.3-8.2) g/dL Albumin 2.3 L (3.5-5.0) g/dL 09/26/18 09/26/18 09/26/18 Range/Units 03:01 04:51 05:59 WBC (3.8-10.6) k/uL RBC (4.30-5.90) m/uL Hgb (13.0-17.5) gm/dL Hct (39.0-53.0) % MCV (80.0-100.0) fL MCHC (31.0-37.0) g/dL Plt Count (150-450) k/uL Neutrophils # (Manual) (1.3-7.7) k/uL Lymphocytes # (Manual) (1.0-4.8) k/uL Monocytes # (Manual) (0-1.0) k/uL Basophils # (Manual) (0-0.2) k/uL Metamyelocytes # (Man) (0) k/uL Myelocytes # (Manual) (0) k/uL Promyelocytes # (Man) (0) k/uL Nucleated RBCs (0-0) /100 WBC PT (9.0-12.0) sec INR (<1.2) ABG pH <7.00 L* (7.35-7.45) ABG pCO2 20 L (35-45) mmHg ABG pO2 115 H (83-108) mmHg ABG HCO3 4 L* (21-25) mmol/L ABG Total CO2 5 L (19-24) mmol/L ABG O2 Saturation (94-97) % ABG Lactic Acid (0.5-1.6) mmol/L Potassium (3.5-5.1) mmol/L Chloride (98-107) mmol/L Carbon Dioxide (22-30) mmol/L BUN (9-20) mg/dL Creatinine (0.66-1.25) mg/dL Glucose (74-99) mg/dL POC Glucose (mg/dL) 61 L 148 H (75-99) mg/dL Calcium (8.4-10.2) mg/dL Ionized Calcium Ritesh (4.5-5.3) mg/dL Phosphorus (2.5-4.5) mg/dL Total Bilirubin (0.2-1.3) mg/dL AST (17-59) U/L ALT (21-72) U/L Alkaline Phosphatase (38-126) U/L Total Protein (6.3-8.2) g/dL Albumin (3.5-5.0) g/dL 09/26/18 Range/Units 07:28 WBC (3.8-10.6) k/uL RBC (4.30-5.90) m/uL Hgb (13.0-17.5) gm/dL Hct (39.0-53.0) % MCV (80.0-100.0) fL MCHC (31.0-37.0) g/dL Plt Count (150-450) k/uL Neutrophils # (Manual) (1.3-7.7) k/uL Lymphocytes # (Manual) (1.0-4.8) k/uL Monocytes # (Manual) (0-1.0) k/uL Basophils # (Manual) (0-0.2) k/uL Metamyelocytes # (Man) (0) k/uL Myelocytes # (Manual) (0) k/uL Promyelocytes # (Man) (0) k/uL Nucleated RBCs (0-0) /100 WBC PT (9.0-12.0) sec INR (<1.2) ABG pH 7.02 L* (7.35-7.45) ABG pCO2 24 L (35-45) mmHg ABG pO2 (83-108) mmHg ABG HCO3 6 L* (21-25) mmol/L ABG Total CO2 7 L (19-24) mmol/L ABG O2 Saturation 93.3 L (94-97) % ABG Lactic Acid (0.5-1.6) mmol/L Potassium (3.5-5.1) mmol/L Chloride (98-107) mmol/L Carbon Dioxide (22-30) mmol/L BUN (9-20) mg/dL Creatinine (0.66-1.25) mg/dL Glucose (74-99) mg/dL POC Glucose (mg/dL) (75-99) mg/dL Calcium (8.4-10.2) mg/dL Ionized Calcium Ritesh (4.5-5.3) mg/dL Phosphorus (2.5-4.5) mg/dL Total Bilirubin (0.2-1.3) mg/dL AST (17-59) U/L ALT (21-72) U/L Alkaline Phosphatase (38-126) U/L Total Protein (6.3-8.2) g/dL Albumin (3.5-5.0) g/dL Microbiology - Last 24 Hours (Table) 09/23/18 13:54 Blood Culture - Preliminary Blood No Growth after 48 hours Assessment and Plan Assessment: Septic shock, most likely is sources the intra-abdominal infection Acute diverticulitis with possible perforated bowel Status post subtotal colectomy, partial omentectomy, and ileostomy Paroxysmal atrial fibrillation Ventricular tachycardia Acute renal failure Metabolic encephalopathy Lactic acidosis Left pleural effusion with possible adjacent atelectasis and/or consultation Leukocytosis, most is secondary to intra-abdominal infection and disease Plan: This is a 63 years old male presents with acute diverticulitis, with possible perforation and septic shock. Continue with ICU management. Several consult is following the case including pulmonary/critical care team, cardiology and infectious disease consult. Also call hasher operator consult in view of worsening his creatinine. Continue with antibiotics as per infectious disease team.Labs and medication were reviewed.. Continue same treatment. Continue with symptomatic treatment. Resume home medication. Monitor lytes and vitals. DVT and GI prophylaxis. Further recommendations of the clinical course of the patient DVT prophylaxis: Subcutaneous Lovenox GI Prophylaxis: Pepcid Prognosis is guarded
[2018-09-26 10:26] LABS: ABG Base Excess -25.9 mmol/L; ABG Oxygen Saturation 93.2 % (94-97); ABG PCO2 24 mmHg (35-45); ABG PO2 87 mmHg (83-108); ABG TCO2 6 mmol/L (19-24)
[2018-09-26 10:30] LABS: ABG PH <7.00 (7.35-7.45)
[2018-09-26 10:31] LABS: ABG HCO3 6 mmol/L (21-25)
--- NOTE | 2018-09-26 10:34 | XR ---
EXAMINATION TYPE: XR chest 1V portable DATE OF EXAM: 09/26/2018 COMPARISON: Prior chest x-ray same dated earlier time HISTORY: Status post dialysis catheter placement TECHNIQUE: Single frontal view of the chest is obtained. FINDINGS: There has been interval placement of a catheter at the right neck, distal tip crossing mid line towards the left. Left pleural effusion is present. Left subclavian central venous catheter, end otracheal tube and NG tube are overlying appropriate positions. No evident pneumothorax. Bilateral ai rspace disease again seen. Heart is likely stable but obscured. IMPRESSION: Dialysis catheter as described. Case discussed with referring clinician.
[2018-09-26] MEDS: NOREPINEPHRINE 16 MG in SODIUM CHLORIDE 0.9% 250 ML IV SCH (11:00)
[2018-09-26 11:05] LABS: Potassium 5.9 mmol/L (3.5-5.1)
[2018-09-26 11:08] LABS: ABG Base Excess -19.2 mmol/L; ABG HCO3 12 mmol/L (21-25); ABG Oxygen Saturation 63.7 % (94-97); ABG PCO2 48 mmHg (35-45); ABG TCO2 14 mmol/L (19-24)
[2018-09-26 11:11] LABS: ABG PH 7.01 (7.35-7.45); ABG PO2 41 mmHg (83-108)
--- NOTE | 2018-09-26 11:46 | P.NPCON ---
History of Present Illness - Reason for Consult acute renal failure - History of Present Illness Reason for consultation: Acute kidney injury History of present illness: Patient is a 63-year-old male seen in consultation for acute kidney injury. Patient underwent exploratory laparotomy on September 25 with subtotal colectomy and partial omentectomy and ileostomy. Patient has no history of renal disease. His baseline creatinine is near 1. His appetite 2.9 today. Patient' s currently on 3 vasopressors on maximal dose. He is on Levophed, vasopressin and epinephrine. Potassium level was 7.7 this morning which was medically treated. Repeat is 5.9. He remains extremely acidotic with bicarb level of 7. He is currently on bicarb drip running at 100 mL an hour. He is oliguric. He had dialysis catheter placed this morning in the groin. He is intubated and sedated. Patient initially had a. Colic abscess which was drained in August 2018. However the patient had abdominal pain and CT this admission was suggestive of severe colitis. Vital signs are stable. General: The patient appeared well nourished and normally developed. Intubated. HEENT: Head exam is unremarkable. Neck is without jugular venous distension. LUNGS: Scattered rhonchi. Breath sounds decreased. HEART: Rate and Rhythm are regular. First and second heart sounds normal. No murmurs, rubs or gallops. ABDOMEN: Bowel sounds decreased. Soft. EXTREMITITES: No clubbing, cyanosis, or edema. Past Medical History Additional Past Medical History / Comment(s): Complicated diverticulitis, history of intra-abdominal abscess formation post percutaneous drainage, hepatitis C and B positivity, psoriasis History of Any Multi-Drug Resistant Organisms: None Reported Additional Past Surgical History / Comment(s): nasal surgery, abd surgery for abcess Past Psychological History: No Psychological Hx Reported Additional Psychological History / Comment(s): lives with the . 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 No experience. No international travel. Tobacco smoker. Stopped alcohol use 40 years ago. 2 dogs and 2 cats at home Smoking Status: Current every day smoker Past Alcohol Use History: None Reported Past Drug Use History: Marijuana Medications and Allergies Home Medications Medication Instructions Recorded Confirmed Type Acetaminophen Tab [Tylenol] 650 mg PO Q4H PRN 09/23/18 09/23/18 History Allergies Allergy/AdvReac Type Severity Reaction Status Date / Time No Known Allergies Allergy Verified 09/23/18 16:11 Physical Exam Vitals: Vital Signs Temp Pulse Resp BP Pulse Ox 09/26/18 08:00 106 H 29 H 09/26/18 07:30 108 H 28 H 09/26/18 07:00 105 H 28 H 09/26/18 06:32 105 H 09/26/18 06:30 105 H 28 H 09/26/18 06:22 105 H 09/26/18 06:14 105 H 09/26/18 06:04 110 H 09/26/18 05:47 106 H 09/26/18 05:30 105 H 28 H 09/26/18 05:00 103 H 24 89 L 09/26/18 04:30 103 H 28 H 95 09/26/18 04:00 97.4 F L 98 29 H 09/26/18 03:30 106 H 28 H 85 L 09/26/18 03:25 97 09/26/18 03:18 97 09/26/18 03:00 104 H 30 H 09/26/18 02:30 107 H 32 H 64 L 09/26/18 02:00 111 H 33 H 09/26/18 01:30 109 H 34 H 09/26/18 01:00 109 H 35 H 55 L 09/26/18 00:30 122 H 32 H 09/26/18 00:00 97.6 F 115 H 29 H 09/25/18 23:56 117 H 09/25/18 23:39 117 H 09/25/18 23:30 117 H 30 H 09/25/18 23:00 124 H 31 H 09/25/18 22:30 114 H 28 H 99 09/25/18 22:00 115 H 28 H 99 09/25/18 21:30 126 H 30 H 92/32 09/25/18 21:00 128 H 29 H 09/25/18 20:30 121 H 28 H 132/38 09/25/18 20:29 121 H 28 H 09/25/18 20:19 123 H 28 H 09/25/18 20:00 121 H 29 H 130/69 100 09/25/18 19:30 111 H 28 H 118/89 93 L 09/25/18 19:15 110 H 28 H 118/89 100 09/25/18 19:00 110 H 28 H 103/77 100 09/25/18 18:45 111 H 28 H 103/77 100 09/25/18 18:30 112 H 28 H 109/85 09/25/18 18:15 114 H 30 H 109/85 09/25/18 18:00 112 H 28 H 112/85 99 09/25/18 17:45 108 H 28 H 112/85 99 09/25/18 17:30 101 H 27 H 114/85 99 09/25/18 17:15 93 29 H 114/85 97 09/25/18 17:00 97.5 F L 90 30 H 97 09/25/18 14:00 126 H 29 H 100/37 99 09/25/18 13:30 113 H 28 H 121/87 99 09/25/18 13:00 117 H 28 H 119/99 100 09/25/18 12:30 128 H 28 H 97/78 100 09/25/18 12:00 97.7 F 118 H 28 H 101/74 100 Intake and Output 09/25/18 09/26/18 09/26/18 22:59 06:59 14:59 Intake Total 2505.939 7137.03 1600 Output Total 836 310 0 Balance 4344.359 1191.03 1600 Intake: IV 2375 5950 1600 Dextrose 5% in Water 1, 400 400 000 ml @ 100 mls/hr IV . Q11H [facility] with Sodium Bicarb (1 Meq/ml) 100 ml Rx#:[id number] Sodium Chloride 0.9% 1, 875 550 200 000 ml @ 150 mls/hr IV . Q6H40M [facility] Rx#:[id number] Sodium Chloride 0.9% 1, 1000 5000 1000 000 ml @ 999 mls/hr IV . Q1H1M [facility] Rx#:[id number] Intake, IV Titration 369.291 3115.03 Amount Albumin Human 25% 50 ml 150 In Empty Bag 1 bag @ 100 mls/hr IVPB ONCE [facility] Rx#: [id number] Calcium Gluconate 1,000 100 mg In Sodium Chloride 0.9 % 100 ml @ 100 mls/hr IVPB ONCE [facility] Rx#: [id number] Calcium Gluconate 1,000 100 mg In Sodium Chloride 0.9 % 100 ml @ 100 mls/hr IVPB ONCE [facility] Rx#: [id number] EPINEPHrine 2 mg In 216.72 Dextrose 5% in Water 250 ml @ 10 MCG/MIN 75.6 mls/ hr IV .Q3H20M [facility] Rx#: [id number] Norepinephrine 16 mg In 59.919 70.31 Sodium Chloride 0.9% 250 ml @ Titrate IV .Q0M [facility] Rx#:[id number] Piperacillin-Tazobactam 3 200 .375 gm In Sodium Chloride 0.9% 100 ml @ 25 mls/hr IVPB Q8HR [facility] Rx# :[id number] Propofol 1,000 mg In 71.02 100 Empty Bag 1 bag @ Titrate IV .Q0M [facility] Rx#: [id number] Vancomycin 1,250 mg In 250 Sodium Chloride 0.9% 250 ml @ 125 mls/hr IVPB Q24H [facility] Rx#:[id number] Output: Gastric Drainage 600 300 Drainage 70 Right Abdomen 70 Urine 116 10 0 Estimated Blood Loss 50 Other: Voiding Method Indwelling Catheter Indwelling Catheter Weight 90 kg ABP, PAP, CO, CI - Last 8 Hours Arterial Blood Pressure 95/47 Arterial Blood Pressure 93/52 Arterial Blood Pressure 101/59 Arterial Blood Pressure 99/54 Arterial Blood Pressure 83/50 Arterial Blood Pressure 128/56 Arterial Blood Pressure 115/63 Arterial Blood Pressure 120/64 Results - Lab Results Most recent lab results ABG pH 7.01 (7.35-7.45) L* 09/26/18 11:06 ABG pCO2 48 mmHg (35-45) H 09/26/18 11:06 ABG pO2 41 mmHg (83-108) L* 09/26/18 11:06 ABG HCO3 12 mmol/L (21-25) L 09/26/18 11:06 ABG O2 Saturation 63.7 % (94-97) L 09/26/18 11:06 Calcium 5.5 mg/dL (8.4-10.2) L* 09/26/18 03:00 Phosphorus 6.8 mg/dL (2.5-4.5) H 09/25/18 09:50 Magnesium 1.9 mg/dL (1.6-2.3) 09/25/18 23:10 09/26/18 03:00 09/26/18 10:40 Assessment and Plan Plan: Assessment: 1. Oliguric acute kidney injury secondary to ATN secondary to septic shock. Creatinine 2.9 today. Baseline creatinine near 1. 2. Septic shock secondary to ischemic colitis. Currently on 3 vasopressors at maximal dose. 3. Hyperkalemia secondary to acute kidney injury and metabolic acidosis. 4. Metabolic acidosis secondary to acute kidney injury. 5. Ischemic colitis status post exploratory laparotomy and ileostomy September 25. 6. Hypocalcemia secondary to acute kidney injury and hypoalbuminemia. He received 2 g of IV calcium today. Plan: After discussion with the family, will attempt renal replacement therapy in the form of SLED. I discussed with them in detail that he may not be able to tolerate hemodialysis due to severe hemodynamic instability. However if dialysis is not done, hyperkalemia will be life-threatening. They understand and are willing to proceed with renal replacement therapy. Maintain bicarb drip at 100 mL an hour. Wean vasopressors. Continue to monitor renal function and urine output closely. Thank you for the consultation. I will continue to follow the patient with you during his hospital stay.
[2018-09-26] MEDS ORDERED: DEXTROSE 5% IN WATER 100 ML with AMIODARONE 150 MG IV ONE (11:50)
[2018-09-26] MEDS ORDERED: AMIODARONE 450 MG in DEXTROSE 5% IN WATER 250 ML IV SCH ×2 (12:00)
[2018-09-26 12:32] VITALS: RESP 28
[2018-09-26 12:50] LABS: Magnesium 2.1 mg/dL (1.6-2.3)
[2018-09-26 12:55] LABS: Calcium 4.9 mg/dL (8.4-10.2); Phosphorus 11.6 mg/dL (2.5-4.5)
[2018-09-26] MEDS ORDERED: CALCIUM GLUCONATE 2,000 MG in SODIUM CHLORIDE 0.9% 100 ML IVPB ONE (13:08)
--- NOTE | 2018-09-26 13:16 | P.PN ---
Subjective Progress Note Date: 09/26/18 Principal diagnosis: Colitis Patient doing poorly today. After the surgery he went back to the ICU and had a few hours where his pressor requirements and vitals seemed to be improved however following that demonstrated progressive decline. Today's labs show marked derangement. The patient actually developed a abnormal heart rhythm requiring shocking him earlier. Attempts at hemodialysis thus far has been unsuccessful. Patient remains on high-dose pressor requirements. He appears more mottled and ashen colored. Ostomy has some evidence of ischemic changes now. Objective - Vital Signs Vital signs: Vital Signs Temp 97.4 F L 09/26/18 04:00 Pulse 135 H 09/26/18 12:00 Resp 28 H 09/26/18 12:00 BP 92/32 09/25/18 21:30 Pulse Ox 60 L 09/26/18 12:00 Intake & Output 09/25/18 09/26/18 09/26/18 18:59 06:59 18:59 Intake Total 9146.02 8796.949 1900 Output Total 837 1021 0 Balance 8309.02 7775.949 1900 Weight 90 kg Intake: IV 9075 7550 1900 Dextrose 5% in Water 1, 400 600 000 ml @ 100 mls/hr IV . Q11H JARAD with Sodium Bicarb (1 Meq/ml) 100 ml Rx#:[id number] Sodium Chloride 0.9% 1, 775 1150 300 000 ml @ 150 mls/hr IV . Q6H40M JARAD Rx#:[id number] Sodium Chloride 0.9% 1, 6000 6000 1000 000 ml @ 999 mls/hr IV . Q1H1M ONE Rx#:[id number] Intake, IV Titration 71.02 1246.949 Amount Albumin Human 25% 50 ml 150 In Empty Bag 1 bag @ 100 mls/hr IVPB ONCE ONE Rx#: [id number] Calcium Gluconate 1,000 100 mg In Sodium Chloride 0.9 % 100 ml @ 100 mls/hr IVPB ONCE ONE Rx#: [id number] Calcium Gluconate 1,000 100 mg In Sodium Chloride 0.9 % 100 ml @ 100 mls/hr IVPB ONCE ONE Rx#: [id number] EPINEPHrine 2 mg In 216.72 Dextrose 5% in Water 250 ml @ 10 MCG/MIN 75.6 mls/ hr IV .Q3H20M JARAD Rx#: [id number] Norepinephrine 16 mg In 130.229 Sodium Chloride 0.9% 250 ml @ Titrate IV .Q0M JARAD Rx#:[id number] Piperacillin-Tazobactam 3 200 .375 gm In Sodium Chloride 0.9% 100 ml @ 25 mls/hr IVPB Q8HR JARAD Rx# :[id number] Propofol 1,000 mg In 71.02 100 Empty Bag 1 bag @ Titrate IV .Q0M JARAD Rx#: [id number] Vancomycin 1,250 mg In 250 Sodium Chloride 0.9% 250 ml @ 125 mls/hr IVPB Q24H JARAD Rx#:[id number] Output: Gastric Drainage 650 900 Drainage 70 Right Abdomen 70 Urine 137 51 0 Estimated Blood Loss 50 Other: Voiding Method Indwelling Catheter Indwelling Catheter Indwelling Catheter ABP, PAP, CO, CI - Last Documented Arterial Blood Pressure 85/59 - Exam Abdomen: Soft, mild distention, ostomy pink with small focal areas of ischemia. - Labs CBC & Chem 7: 09/26/18 03:00 09/26/18 10:40 Labs: Abnormal Lab Results - Last 24 Hours (Table) 09/25/18 09/25/18 09/25/18 Range/Units 15:32 17:50 17:56 WBC (3.8-10.6) k/uL Hct (39.0-53.0) % MCV (80.0-100.0) fL MCHC (31.0-37.0) g/dL Plt Count (150-450) k/uL Neutrophils # (Manual) (1.3-7.7) k/uL Lymphocytes # (Manual) (1.0-4.8) k/uL Monocytes # (Manual) (0-1.0) k/uL Basophils # (Manual) (0-0.2) k/uL Metamyelocytes # (Man) (0) k/uL Myelocytes # (Manual) (0) k/uL Promyelocytes # (Man) (0) k/uL Nucleated RBCs (0-0) /100 WBC ABG pH 7.14 L* (7.35-7.45) ABG pCO2 27 L (35-45) mmHg ABG pO2 205 H 79 L (83-108) mmHg ABG HCO3 13 L 17 L (21-25) mmol/L ABG Total CO2 14 L 18 L (19-24) mmol/L ABG O2 Saturation 99.0 H (94-97) % ABG Lactic Acid 4.7 H* (0.5-1.6) mmol/L Sodium (137-145) mmol/L Potassium (3.5-5.1) mmol/L Chloride (98-107) mmol/L Carbon Dioxide (22-30) mmol/L BUN (9-20) mg/dL Creatinine (0.66-1.25) mg/dL Glucose (74-99) mg/dL POC Glucose (mg/dL) (75-99) mg/dL Calcium (8.4-10.2) mg/dL Ionized Calcium Ritesh (4.5-5.3) mg/dL Phosphorus (2.5-4.5) mg/dL Total Bilirubin (0.2-1.3) mg/dL AST (17-59) U/L ALT (21-72) U/L Alkaline Phosphatase (38-126) U/L Total Protein (6.3-8.2) g/dL Albumin (3.5-5.0) g/dL 09/25/18 09/25/18 09/26/18 Range/Units 23:10 23:54 03:00 WBC 121.4 H* (3.8-10.6) k/uL Hct 57.4 H* (39.0-53.0) % MCV 102.2 H D (80.0-100.0) fL MCHC 30.3 L (31.0-37.0) g/dL Plt Count 106 L (150-450) k/uL Neutrophils # (Manual) 65.50 H (1.3-7.7) k/uL Lymphocytes # (Manual) 15.78 H (1.0-4.8) k/uL Monocytes # (Manual) 8.50 H (0-1.0) k/uL Basophils # (Manual) 1.21 H (0-0.2) k/uL Metamyelocytes # (Man) 9.71 H (0) k/uL Myelocytes # (Manual) 20.64 H (0) k/uL Promyelocytes # (Man) 2.43 H (0) k/uL Nucleated RBCs 5 H (0-0) /100 WBC ABG pH (7.35-7.45) ABG pCO2 (35-45) mmHg ABG pO2 (83-108) mmHg ABG HCO3 (21-25) mmol/L ABG Total CO2 (19-24) mmol/L ABG O2 Saturation (94-97) % ABG Lactic Acid (0.5-1.6) mmol/L Sodium (137-145) mmol/L Potassium 5.7 H (3.5-5.1) mmol/L Chloride 123 H (98-107) mmol/L Carbon Dioxide 11 L (22-30) mmol/L BUN 44 H (9-20) mg/dL Creatinine 2.44 H (0.66-1.25) mg/dL Glucose 108 H (74-99) mg/dL POC Glucose (mg/dL) (75-99) mg/dL Calcium 5.5 L* (8.4-10.2) mg/dL Ionized Calcium Ritesh 3.6 L (4.5-5.3) mg/dL Phosphorus (2.5-4.5) mg/dL Total Bilirubin (0.2-1.3) mg/dL AST (17-59) U/L ALT (21-72) U/L Alkaline Phosphatase (38-126) U/L Total Protein (6.3-8.2) g/dL Albumin (3.5-5.0) g/dL 09/26/18 09/26/18 09/26/18 Range/Units 03:00 03:01 04:51 WBC (3.8-10.6) k/uL Hct (39.0-53.0) % MCV (80.0-100.0) fL MCHC (31.0-37.0) g/dL Plt Count (150-450) k/uL Neutrophils # (Manual) (1.3-7.7) k/uL Lymphocytes # (Manual) (1.0-4.8) k/uL Monocytes # (Manual) (0-1.0) k/uL Basophils # (Manual) (0-0.2) k/uL Metamyelocytes # (Man) (0) k/uL Myelocytes # (Manual) (0) k/uL Promyelocytes # (Man) (0) k/uL Nucleated RBCs (0-0) /100 WBC ABG pH <7.00 L* (7.35-7.45) ABG pCO2 20 L (35-45) mmHg ABG pO2 115 H (83-108) mmHg ABG HCO3 4 L* (21-25) mmol/L ABG Total CO2 5 L (19-24) mmol/L ABG O2 Saturation (94-97) % ABG Lactic Acid (0.5-1.6) mmol/L Sodium (137-145) mmol/L Potassium 7.7 H* (3.5-5.1) mmol/L Chloride 122 H (98-107) mmol/L Carbon Dioxide 7 L* (22-30) mmol/L BUN 41 H (9-20) mg/dL Creatinine 2.98 H (0.66-1.25) mg/dL Glucose 47 L* (74-99) mg/dL POC Glucose (mg/dL) 61 L (75-99) mg/dL Calcium 5.5 L* (8.4-10.2) mg/dL Ionized Calcium Ritesh 3.6 L (4.5-5.3) mg/dL Phosphorus (2.5-4.5) mg/dL Total Bilirubin 3.4 H (0.2-1.3) mg/dL AST 969 H (17-59) U/L ALT 303 H (21-72) U/L Alkaline Phosphatase 131 H (38-126) U/L Total Protein 4.2 L (6.3-8.2) g/dL Albumin 2.3 L (3.5-5.0) g/dL 09/26/18 09/26/18 09/26/18 Range/Units 05:59 07:28 10:24 WBC (3.8-10.6) k/uL Hct (39.0-53.0) % MCV (80.0-100.0) fL MCHC (31.0-37.0) g/dL Plt Count (150-450) k/uL Neutrophils # (Manual) (1.3-7.7) k/uL Lymphocytes # (Manual) (1.0-4.8) k/uL Monocytes # (Manual) (0-1.0) k/uL Basophils # (Manual) (0-0.2) k/uL Metamyelocytes # (Man) (0) k/uL Myelocytes # (Manual) (0) k/uL Promyelocytes # (Man) (0) k/uL Nucleated RBCs (0-0) /100 WBC ABG pH 7.02 L* <7.00 L* (7.35-7.45) ABG pCO2 24 L 24 L (35-45) mmHg ABG pO2 (83-108) mmHg ABG HCO3 6 L* 6 L* (21-25) mmol/L ABG Total CO2 7 L 6 L (19-24) mmol/L ABG O2 Saturation 93.3 L 93.2 L (94-97) % ABG Lactic Acid (0.5-1.6) mmol/L Sodium (137-145) mmol/L Potassium (3.5-5.1) mmol/L Chloride (98-107) mmol/L Carbon Dioxide (22-30) mmol/L BUN (9-20) mg/dL Creatinine (0.66-1.25) mg/dL Glucose (74-99) mg/dL POC Glucose (mg/dL) 148 H (75-99) mg/dL Calcium (8.4-10.2) mg/dL Ionized Calcium Ritesh (4.5-5.3) mg/dL Phosphorus (2.5-4.5) mg/dL Total Bilirubin (0.2-1.3) mg/dL AST (17-59) U/L ALT (21-72) U/L Alkaline Phosphatase (38-126) U/L Total Protein (6.3-8.2) g/dL Albumin (3.5-5.0) g/dL 09/26/18 09/26/18 Range/Units 10:40 11:06 WBC (3.8-10.6) k/uL Hct (39.0-53.0) % MCV (80.0-100.0) fL MCHC (31.0-37.0) g/dL Plt Count (150-450) k/uL Neutrophils # (Manual) (1.3-7.7) k/uL Lymphocytes # (Manual) (1.0-4.8) k/uL Monocytes # (Manual) (0-1.0) k/uL Basophils # (Manual) (0-0.2) k/uL Metamyelocytes # (Man) (0) k/uL Myelocytes # (Manual) (0) k/uL Promyelocytes # (Man) (0) k/uL Nucleated RBCs (0-0) /100 WBC ABG pH 7.01 L* (7.35-7.45) ABG pCO2 48 H (35-45) mmHg ABG pO2 41 L* (83-108) mmHg ABG HCO3 12 L (21-25) mmol/L ABG Total CO2 14 L (19-24) mmol/L ABG O2 Saturation 63.7 L (94-97) % ABG Lactic Acid (0.5-1.6) mmol/L Sodium 146 H (137-145) mmol/L Potassium 5.9 H (3.5-5.1) mmol/L Chloride 123 H (98-107) mmol/L Carbon Dioxide 7 L* (22-30) mmol/L BUN 40 H (9-20) mg/dL Creatinine 3.19 H (0.66-1.25) mg/dL Glucose 186 H (74-99) mg/dL POC Glucose (mg/dL) (75-99) mg/dL Calcium 4.9 L* (8.4-10.2) mg/dL Ionized Calcium Ritesh (4.5-5.3) mg/dL Phosphorus 11.6 H* (2.5-4.5) mg/dL Total Bilirubin (0.2-1.3) mg/dL AST (17-59) U/L ALT (21-72) U/L Alkaline Phosphatase (38-126) U/L Total Protein (6.3-8.2) g/dL Albumin (3.5-5.0) g/dL Microbiology - Last 24 Hours (Table) 09/25/18 23:57 Sputum Culture - Preliminary Sputum 09/23/18 13:54 Blood Culture - Preliminary Blood No Growth after 48 hours Assessment and Plan (1) Colitis Narrative/Plan: Patient developing multisystem organ failure. The patient's family was updated as to his current condition. Apparently they have been in contact with the reliner throughout the morning. Patient remains full code at this time. Prognosis unfortunately quite poor. We'll follow closely during this ICU stay. Current Visit: Yes Status: Acute Code(s): K52.9 - NONINFECTIVE GASTROENTERITIS AND COLITIS, UNSPECIFIED SNOMED Code(s): 82057809
[2018-09-26 13:24] LABS: Glucose,Whole Blood 168 mg/dL (75-99)
[2018-09-26 13:34] LABS: ABG Base Excess -23.1 mmol/L; ABG Oxygen Saturation 91.4 % (94-97); ABG PCO2 24 mmHg (35-45); ABG PO2 74 mmHg (83-108); ABG TCO2 8 mmol/L (19-24)
[2018-09-26 13:36] LABS: ABG HCO3 7 mmol/L (21-25); ABG PH 7.07 (7.35-7.45)
[2018-09-26] MEDS ORDERED: SODIUM BICARB 8.4% 50 ML SYR (1 MEQ/ML) IV ONE (13:57)
[2018-09-26 14:08] LABS: HCT 48.2 % (39.0-53.0); Hypochromasia Marked; MCH 31.5 pg (25.0-35.0); MCHC 31.1 g/dL (31.0-37.0); MCV 101.2 fL (80.0-100.0); Macrocytosis Slight; Mean Platelet Volume 8.8; Platelet Count 118 k/uL (150-450); RBC 4.76 m/uL (4.30-5.90); RDW 13.3 % (11.5-15.5)
[2018-09-26 14:10] LABS: WBC 124.4 k/uL (3.8-10.6)
[2018-09-26 14:12] LABS: Albumin 1.5 g/dL (3.5-5.0); Total Protein 2.8 g/dL (6.3-8.2)
[2018-09-26 14:24] LABS: Calcium 4.8 mg/dL (8.4-10.2)
--- NOTE | 2018-09-26 16:30 | CONS ---
DATE OF CONSULTATION: 09/26/2018 This gentleman was seen as a STAT consult for placement of a dialysis catheter. This patient has history of colon resection and ileostomy. Patient has been diagnosed with oliguric acute kidney injury secondary to ATN secondary to septic shock. Patient also has hyperkalemia and metabolic acidosis. Patient has been intubated. He is on 3 vasopressors on maximal dose. He is on Levophed, vasopressin and epinephrine. Potassium level is 7.7. He is on bicarb drip running at 100 mL/hour. He is oliguric. He is hypotensive. Patient's neck is supple. He has an endotracheal tube. Lungs have scattered rhonchi. Patient has an ileostomy. Patient's right side has a femoral arterial line. Left subclavian has a catheter. Left femoral is not palpable. PLAN: Placement of dialysis catheter, right neck, using triple-lumen catheter. Risks and complications have been discussed, increasing bleeding, infection, thrombosis. MMODL / IJN: [id number] / MTDD
[2018-09-26 17:24] VITALS: TEMP 94.5
[2018-09-26] MEDS ORDERED: EPINEPHrine 10 ML SYRINGE (0.1 MG/ML) ONE (18:01)
[2018-09-26] MEDS ORDERED: SODIUM BICARB 8.4% 50 ML SYR (1 MEQ/ML) ONE (18:01)
--- NOTE | 2018-09-26 18:05 | PCN ---
PROCEDURE NOTE PREOP DIAGNOSES: 1. Acute on chronic renal failure. 2. Hyperkalemia. 3. Septicemia. 4. Liver failure with a high AST and white cell count is 124,000. DESCRIPTION OF PROCEDURE: Right groin was prepped and 1% lidocaine was infiltrated. Micropuncture into the right femoral vein. Micropuncture guidewire was passed and 4-Yi dilator advanced on top of the guidewire. After that, we placed a dialysis catheter on the top of the guidewire and secured with 3-0 nylon. Flushed with heparin saline and the patient tolerated the procedure well. MMODL / IJN: [id number] /
--- NOTE | 2018-09-26 18:12 | OP ---
OPERATIVE REPORT PREOPERATIVE DIAGNOSES: 1. Acute renal failure with hyperkalemia. 2. History of septic shock. 3. History of colon resection for ischemic bowel. 4. History of multiple-organ failure with high AST at 10,429. PROCEDURE: Ultrasound-guided triple-lumen catheter placement, right internal jugular vein. PROCEDURE DESCRIPTION: The patient was placed in supine position in the intensive care unit. The patient has been intubated. Right side of the neck and chest was prepped and draped in sterile manner. Lidocaine 1% plain was infiltrated. Ultrasound-guided micropuncture was introduced into the right jugular vein and venous flow was noted. There was no pulsatile flow noted. Micropuncture guidewire was passed and 4-Occitan dilator advanced on top of the guidewire. After that we passed a regular guidewire and we placed a triple-lumen catheter into the right jugular vein and flushed with heparin saline and hep-locked. We will do a chest x-ray. MMODL / IJN: [id number] /
--- NOTE | 2018-09-26 18:15 | PN ---
PROGRESS NOTE Patient had a right IJ catheter placed. We looked at his chest x-ray. Tip of the catheter is crossing the midline towards the left. No pneumothorax. At this point, there is a concern about bacterial access for the triple lumen. We will check the arterial blood gases. We discussed with Dr. Allen. Patient is very unstable. He has septic shock, oliguria and cannot tolerated the dialysis at this point because of low blood pressure. Patient is on Levophed and also he is on epinephrine and vasopressor His white cell count is 124 1000. We will wait until patient is stable to take the catheter from the from the right side of the neck. Most likely it is arterial. Caul Dresser wants us to place a catheter for possible dialysis. We will place. MMDAO / IJN: [id number] /
[2018-09-26 18:22] LABS: Potassium 5.4 mmol/L (3.5-5.1)
[2018-09-26 18:31] LABS: Calcium 4.7 mg/dL (8.4-10.2)
[2018-09-26 18:39] VITALS: PULSE 63
--- NOTE | 2018-09-26 22:25 | P.PN ---
Subjective Progress Note Date: 09/26/18 62-year-old male who has a known history of intra-abdominal abscess from a ruptured diverticuli approximately 5 weeks ago. He was taken care of in hospital and had percutaneous drainage of the abscess. He recently has been following with his surgeon Dr. Torrez, with plans for a follow-up colonoscopy and then any surgical plans to be made after that. The patient had been treated with a course of Rocephin and Flagyl that had stopped on 08/29/2018. The patient relates he really was doing very well until 3 days before admission when he started to have some increasing abdominal pain . He relates he had a normal meal and then he noticed the onset of the left lower flank pain. It increased in amount extended through the left flank down into the buttocks area. The pain became very severe from his flank and back which is why he sought care. Imaging studies were performed with evidence of the significant phlegmon along the sigmoid colon area as well as significant leukocytosis. The patient feels very poorly and does have evidence of dehydration and is being rehydrated per the surgeon. Follow-up computed tomography scan has been requested. Infectious disease consultation for antibiotic therapy. 09/25/2018 the patient's particular the operating room and the subtotal colectomy has been performed ileostomy has been placed. Is noted from conversation with the surgeon there was concerns to ischemic as well as infectious colitis of the colon, at the time of surgery there is also concern for potential malignancy. As noted the patient had evidence of the time of surgery of ischemic/necrotizing colitis. At the time of evaluation yesterday as related the patient was very ill and was seeking input from his surgeon Dr. Torrez before agreeing to any interventions. The events of and reviewed and the patient developed progressive sepsis developed septic shock required transfer to the intensive care unit where he was intubated sedated and mechanically ventilated and had central line placed and initiation of vasopressor therapy before his surgical intervention. Postoperatively the patient remains on the ventilator as well as of vasopressor therapy. 09/26/2018 patient has had further worsening of his status. He has refractory acidosis has developed significant hyperkalemia and worsening hypotension requiring multiple vasopressor agents with poor ongoing tissue perfusion. He is anuric and has received greater than 10 L of fluids. Objective - Vital Signs Vital signs: Vital Signs Temp 94.5 F L 09/26/18 16:00 Pulse 63 09/26/18 18:00 Resp 28 H 09/26/18 18:00 BP 92/32 09/25/18 21:30 Pulse Ox 60 L 09/26/18 12:00 Intake & Output 09/26/18 09/26/18 09/27/18 06:59 18:59 06:59 Intake Total 8916.720 4569.06 Output Total 1021 650 Balance 7895.720 3919.06 Weight 90 kg Intake: IV 7550 3800 Dextrose 5% in Water 1, 400 1200 000 ml @ 100 mls/hr IV . Q11H JARAD with Sodium Bicarb (1 Meq/ml) 100 ml Rx#:[id number] Sodium Chloride 0.9% 1, 1150 600 000 ml @ 150 mls/hr IV . Q6H40M [facility] Rx#:[id number] Sodium Chloride 0.9% 1, 6000 1000 000 ml @ 999 mls/hr IV . Q1H1M [facility] Rx#:[id number] Sodium Chloride 0.9% 1, 1000 000 ml @ 999 mls/hr IV . Q1H1M [facility] Rx#:[id number] Intake, IV Titration 1366.720 769.06 Amount Albumin Human 25% 50 ml 150 In Empty Bag 1 bag @ 100 mls/hr IVPB ONCE ONE Rx#: [id number] Calcium Gluconate 1,000 100 mg In Sodium Chloride 0.9 % 100 ml @ 100 mls/hr IVPB ONCE ONE Rx#: [id number] Calcium Gluconate 1,000 100 mg In Sodium Chloride 0.9 % 100 ml @ 100 mls/hr IVPB ONCE ONE Rx#: [id number] EPINEPHrine 2 mg In 216.72 669.06 Dextrose 5% in Water 250 ml @ 10 MCG/MIN 75.6 mls/ hr IV .Q3H20M [facility] Rx#: [id number] Norepinephrine 16 mg In 250.000 Sodium Chloride 0.9% 250 ml @ Titrate IV .Q0M [facility] Rx#:[id number] Piperacillin-Tazobactam 3 200 .375 gm In Sodium Chloride 0.9% 100 ml @ 25 mls/hr IVPB Q8HR [facility] Rx# :[id number] Propofol 1,000 mg In 100 100 Empty Bag 1 bag @ Titrate IV .Q0M [facility] Rx#: [id number] Vancomycin 1,250 mg In 250 Sodium Chloride 0.9% 250 ml @ 125 mls/hr IVPB Q24H [facility] Rx#:[id number] Output: Gastric Drainage 900 Drainage 70 650 Right Abdomen 70 650 Urine 51 0 Other: Voiding Method Indwelling Catheter Indwelling Catheter ABP, PAP, CO, CI - Last Documented Arterial Blood Pressure 36/ - Exam 63-year-old man intubated sedated and mechanically ventilated, on multiple vasopressors, extremities are cool mottling evidence of poor perfusion HEENT: Anicteric conjunctiva are pink and moist nasal mucosa grossly intact without significant lesions, there is no thrush. Neck: The neck is without stiffness Lungs: symmetrical air entry Heart: Tachycardic without murmur Abdomen: Postoperative, ileostomy site reveals evidence of the stoma that is no longer pink and vital no bowel sounds Extremities: Worsening generalized edema pulses low-volume extremity mottling Neuro: Mechanically ventilated via intubation sedated - Labs CBC & Chem 7: 09/26/18 13:25 09/26/18 17:45 Labs: Abnormal Lab Results - Last 24 Hours (Table) 09/25/18 09/25/18 09/26/18 Range/Units 23:10 23:54 03:00 WBC 121.4 H* (3.8-10.6) k/uL Hct 57.4 H* (39.0-53.0) % MCV 102.2 H D (80.0-100.0) fL MCHC 30.3 L (31.0-37.0) g/dL Plt Count 106 L (150-450) k/uL Neutrophils # (Manual) 65.50 H (1.3-7.7) k/uL Lymphocytes # (Manual) 15.78 H (1.0-4.8) k/uL Monocytes # (Manual) 8.50 H (0-1.0) k/uL Basophils # (Manual) 1.21 H (0-0.2) k/uL Metamyelocytes # (Man) 9.71 H (0) k/uL Myelocytes # (Manual) 20.64 H (0) k/uL Promyelocytes # (Man) 2.43 H (0) k/uL Nucleated RBCs 5 H (0-0) /100 WBC ABG pH (7.35-7.45) ABG pCO2 (35-45) mmHg ABG pO2 (83-108) mmHg ABG HCO3 (21-25) mmol/L ABG Total CO2 (19-24) mmol/L ABG O2 Saturation (94-97) % ABG Lactic Acid (0.5-1.6) mmol/L Sodium (137-145) mmol/L Potassium 5.7 H (3.5-5.1) mmol/L Chloride 123 H (98-107) mmol/L Carbon Dioxide 11 L (22-30) mmol/L BUN 44 H (9-20) mg/dL Creatinine 2.44 H (0.66-1.25) mg/dL Glucose 108 H (74-99) mg/dL POC Glucose (mg/dL) (75-99) mg/dL Calcium 5.5 L* (8.4-10.2) mg/dL Ionized Calcium Ritesh 3.6 L (4.5-5.3) mg/dL Phosphorus (2.5-4.5) mg/dL Total Bilirubin (0.2-1.3) mg/dL AST (17-59) U/L ALT (21-72) U/L Alkaline Phosphatase (38-126) U/L Total Protein (6.3-8.2) g/dL Albumin (3.5-5.0) g/dL 09/26/18 09/26/18 09/26/18 Range/Units 03:00 03:01 04:51 WBC (3.8-10.6) k/uL Hct (39.0-53.0) % MCV (80.0-100.0) fL MCHC (31.0-37.0) g/dL Plt Count (150-450) k/uL Neutrophils # (Manual) (1.3-7.7) k/uL Lymphocytes # (Manual) (1.0-4.8) k/uL Monocytes # (Manual) (0-1.0) k/uL Basophils # (Manual) (0-0.2) k/uL Metamyelocytes # (Man) (0) k/uL Myelocytes # (Manual) (0) k/uL Promyelocytes # (Man) (0) k/uL Nucleated RBCs (0-0) /100 WBC ABG pH <7.00 L* (7.35-7.45) ABG pCO2 20 L (35-45) mmHg ABG pO2 115 H (83-108) mmHg ABG HCO3 4 L* (21-25) mmol/L ABG Total CO2 5 L (19-24) mmol/L ABG O2 Saturation (94-97) % ABG Lactic Acid (0.5-1.6) mmol/L Sodium (137-145) mmol/L Potassium 7.7 H* (3.5-5.1) mmol/L Chloride 122 H (98-107) mmol/L Carbon Dioxide 7 L* (22-30) mmol/L BUN 41 H (9-20) mg/dL Creatinine 2.98 H (0.66-1.25) mg/dL Glucose 47 L* (74-99) mg/dL POC Glucose (mg/dL) 61 L (75-99) mg/dL Calcium 5.5 L* (8.4-10.2) mg/dL Ionized Calcium Ritesh 3.6 L (4.5-5.3) mg/dL Phosphorus (2.5-4.5) mg/dL Total Bilirubin 3.4 H (0.2-1.3) mg/dL AST 969 H (17-59) U/L ALT 303 H (21-72) U/L Alkaline Phosphatase 131 H (38-126) U/L Total Protein 4.2 L (6.3-8.2) g/dL Albumin 2.3 L (3.5-5.0) g/dL 09/26/18 09/26/18 09/26/18 Range/Units 05:59 07:28 10:24 WBC (3.8-10.6) k/uL Hct (39.0-53.0) % MCV (80.0-100.0) fL MCHC (31.0-37.0) g/dL Plt Count (150-450) k/uL Neutrophils # (Manual) (1.3-7.7) k/uL Lymphocytes # (Manual) (1.0-4.8) k/uL Monocytes # (Manual) (0-1.0) k/uL Basophils # (Manual) (0-0.2) k/uL Metamyelocytes # (Man) (0) k/uL Myelocytes # (Manual) (0) k/uL Promyelocytes # (Man) (0) k/uL Nucleated RBCs (0-0) /100 WBC ABG pH 7.02 L* <7.00 L* (7.35-7.45) ABG pCO2 24 L 24 L (35-45) mmHg ABG pO2 (83-108) mmHg ABG HCO3 6 L* 6 L* (21-25) mmol/L ABG Total CO2 7 L 6 L (19-24) mmol/L ABG O2 Saturation 93.3 L 93.2 L (94-97) % ABG Lactic Acid (0.5-1.6) mmol/L Sodium (137-145) mmol/L Potassium (3.5-5.1) mmol/L Chloride (98-107) mmol/L Carbon Dioxide (22-30) mmol/L BUN (9-20) mg/dL Creatinine (0.66-1.25) mg/dL Glucose (74-99) mg/dL POC Glucose (mg/dL) 148 H (75-99) mg/dL Calcium (8.4-10.2) mg/dL Ionized Calcium Ritesh (4.5-5.3) mg/dL Phosphorus (2.5-4.5) mg/dL Total Bilirubin (0.2-1.3) mg/dL AST (17-59) U/L ALT (21-72) U/L Alkaline Phosphatase (38-126) U/L Total Protein (6.3-8.2) g/dL Albumin (3.5-5.0) g/dL 09/26/18 09/26/18 09/26/18 Range/Units 10:40 11:06 13:11 WBC (3.8-10.6) k/uL Hct (39.0-53.0) % MCV (80.0-100.0) fL MCHC (31.0-37.0) g/dL Plt Count (150-450) k/uL Neutrophils # (Manual) (1.3-7.7) k/uL Lymphocytes # (Manual) (1.0-4.8) k/uL Monocytes # (Manual) (0-1.0) k/uL Basophils # (Manual) (0-0.2) k/uL Metamyelocytes # (Man) (0) k/uL Myelocytes # (Manual) (0) k/uL Promyelocytes # (Man) (0) k/uL Nucleated RBCs (0-0) /100 WBC ABG pH 7.01 L* (7.35-7.45) ABG pCO2 48 H (35-45) mmHg ABG pO2 41 L* (83-108) mmHg ABG HCO3 12 L (21-25) mmol/L ABG Total CO2 14 L (19-24) mmol/L ABG O2 Saturation 63.7 L (94-97) % ABG Lactic Acid (0.5-1.6) mmol/L Sodium 146 H (137-145) mmol/L Potassium 5.9 H (3.5-5.1) mmol/L Chloride 123 H (98-107) mmol/L Carbon Dioxide 7 L* (22-30) mmol/L BUN 40 H (9-20) mg/dL Creatinine 3.19 H (0.66-1.25) mg/dL Glucose 186 H (74-99) mg/dL POC Glucose (mg/dL) 168 H (75-99) mg/dL Calcium 4.9 L* (8.4-10.2) mg/dL Ionized Calcium Ritesh (4.5-5.3) mg/dL Phosphorus 11.6 H* (2.5-4.5) mg/dL Total Bilirubin (0.2-1.3) mg/dL AST (17-59) U/L ALT (21-72) U/L Alkaline Phosphatase (38-126) U/L Total Protein (6.3-8.2) g/dL Albumin (3.5-5.0) g/dL 09/26/18 09/26/18 09/26/18 Range/Units 13:25 13:25 13:30 WBC 124.4 H* (3.8-10.6) k/uL Hct (39.0-53.0) % MCV 101.2 H (80.0-100.0) fL MCHC (31.0-37.0) g/dL Plt Count 118 L (150-450) k/uL Neutrophils # (Manual) (1.3-7.7) k/uL Lymphocytes # (Manual) (1.0-4.8) k/uL Monocytes # (Manual) (0-1.0) k/uL Basophils # (Manual) (0-0.2) k/uL Metamyelocytes # (Man) (0) k/uL Myelocytes # (Manual) (0) k/uL Promyelocytes # (Man) (0) k/uL Nucleated RBCs (0-0) /100 WBC ABG pH 7.07 L* (7.35-7.45) ABG pCO2 24 L (35-45) mmHg ABG pO2 74 L (83-108) mmHg ABG HCO3 7 L* (21-25) mmol/L ABG Total CO2 8 L (19-24) mmol/L ABG O2 Saturation 91.4 L (94-97) % ABG Lactic Acid (0.5-1.6) mmol/L Sodium (137-145) mmol/L Potassium 6.0 H (3.5-5.1) mmol/L Chloride 117 H (98-107) mmol/L Carbon Dioxide 8 L* (22-30) mmol/L BUN 36 H (9-20) mg/dL Creatinine 2.92 H (0.66-1.25) mg/dL Glucose 187 H (74-99) mg/dL POC Glucose (mg/dL) (75-99) mg/dL Calcium 4.8 L* (8.4-10.2) mg/dL Ionized Calcium Ritesh (4.5-5.3) mg/dL Phosphorus (2.5-4.5) mg/dL Total Bilirubin 3.0 H (0.2-1.3) mg/dL AST 32634 H (17-59) U/L ALT 3012 H (21-72) U/L Alkaline Phosphatase (38-126) U/L Total Protein 2.8 L (6.3-8.2) g/dL Albumin 1.5 L (3.5-5.0) g/dL 09/26/18 09/26/18 Range/Units 17:45 17:45 WBC (3.8-10.6) k/uL Hct (39.0-53.0) % MCV (80.0-100.0) fL MCHC (31.0-37.0) g/dL Plt Count (150-450) k/uL Neutrophils # (Manual) (1.3-7.7) k/uL Lymphocytes # (Manual) (1.0-4.8) k/uL Monocytes # (Manual) (0-1.0) k/uL Basophils # (Manual) (0-0.2) k/uL Metamyelocytes # (Man) (0) k/uL Myelocytes # (Manual) (0) k/uL Promyelocytes # (Man) (0) k/uL Nucleated RBCs (0-0) /100 WBC ABG pH (7.35-7.45) ABG pCO2 (35-45) mmHg ABG pO2 (83-108) mmHg ABG HCO3 (21-25) mmol/L ABG Total CO2 (19-24) mmol/L ABG O2 Saturation (94-97) % ABG Lactic Acid 16.6 H* (0.5-1.6) mmol/L Sodium (137-145) mmol/L Potassium 5.4 H (3.5-5.1) mmol/L Chloride 115 H (98-107) mmol/L Carbon Dioxide 8 L* (22-30) mmol/L BUN 36 H (9-20) mg/dL Creatinine 3.29 H (0.66-1.25) mg/dL Glucose 226 H (74-99) mg/dL POC Glucose (mg/dL) (75-99) mg/dL Calcium 4.7 L* (8.4-10.2) mg/dL Ionized Calcium Ritesh (4.5-5.3) mg/dL Phosphorus (2.5-4.5) mg/dL Total Bilirubin (0.2-1.3) mg/dL AST (17-59) U/L ALT (21-72) U/L Alkaline Phosphatase (38-126) U/L Total Protein (6.3-8.2) g/dL Albumin (3.5-5.0) g/dL Microbiology - Last 24 Hours (Table) 09/23/18 13:54 Blood Culture - Preliminary Blood No Growth after 72 hours 09/25/18 23:57 Gram Stain - Preliminary Sputum Sputum Culture - Preliminary Laboratory Results WBC 124.4 k/uL (3.8-10.6) H* 09/26/18 13:25 RBC 4.76 m/uL (4.30-5.90) 09/26/18 13:25 Hgb 15.0 gm/dL (13.0-17.5) 09/26/18 13:25 Hct 48.2 % (39.0-53.0) 09/26/18 13:25 MCV 101.2 fL (80.0-100.0) H 09/26/18 13:25 MCH 31.5 pg (25.0-35.0) 09/26/18 13:25 MCHC 31.1 g/dL (31.0-37.0) 09/26/18 13:25 RDW 13.3 % (11.5-15.5) 09/26/18 13:25 Plt Count 118 k/uL (150-450) L 09/26/18 13:25 Neutrophils % 87 % 09/25/18 03:47 Neutrophils % (Manual) 48 % 09/26/18 03:00 Band Neutrophils % 6 % 09/26/18 03:00 Lymphocytes % 6 % 09/25/18 03:47 Lymphocytes % (Manual) 13 % 09/26/18 03:00 Monocytes % 6 % 09/25/18 03:47 Monocytes % (Manual) 7 % 09/26/18 03:00 Eosinophils % 0 % 09/25/18 03:47 Basophils % 1 % 09/25/18 03:47 Basophils % (Manual) 1 % 09/26/18 03:00 Metamyelocytes % 8 % 09/26/18 03:00 Myelocytes % 17 % 09/26/18 03:00 Promyelocytes % 2 % 09/26/18 03:00 Neutrophils # 40.5 k/uL (1.3-7.7) H 09/25/18 03:47 Neutrophils # (Manual) 65.50 k/uL (1.3-7.7) H 09/26/18 03:00 Lymphocytes # 2.7 k/uL (1.0-4.8) 09/25/18 03:47 Lymphocytes # (Manual) 15.78 k/uL (1.0-4.8) H 09/26/18 03:00 Monocytes # 2.6 k/uL (0-1.0) H 09/25/18 03:47 Monocytes # (Manual) 8.50 k/uL (0-1.0) H 09/26/18 03:00 Eosinophils # 0.1 k/uL (0-0.7) 09/25/18 03:47 Basophils # 0.3 k/uL (0-0.2) H 09/25/18 03:47 Basophils # (Manual) 1.21 k/uL (0-0.2) H 09/26/18 03:00 Metamyelocytes # (Man) 9.71 k/uL (0) H 09/26/18 03:00 Myelocytes # (Manual) 20.64 k/uL (0) H 09/26/18 03:00 Promyelocytes # (Man) 2.43 k/uL (0) H 09/26/18 03:00 Nucleated RBCs 5 /100 WBC (0-0) H 09/26/18 03:00 Manual Slide Review Performed 09/26/18 03:00 Toxic Granulation Present 09/26/18 03:00 Hypochromasia Marked 09/26/18 13:25 Macrocytosis Slight 09/26/18 13:25 PT 13.3 sec (9.0-12.0) H 09/25/18 09:50 INR 1.3 (<1.2) H 09/25/18 09:50 APTT 25.6 sec (22.0-30.0) 09/25/18 03:47 Sample Site michael 09/26/18 13:30 ABG pH 7.07 (7.35-7.45) L* 09/26/18 13:30 ABG pCO2 24 mmHg (35-45) L 09/26/18 13:30 ABG pO2 74 mmHg (83-108) L 09/26/18 13:30 ABG HCO3 7 mmol/L (21-25) L* 09/26/18 13:30 ABG Total CO2 8 mmol/L (19-24) L 09/26/18 13:30 ABG O2 Saturation 91.4 % (94-97) L 09/26/18 13:30 ABG Base Excess -23.1 mmol/L 09/26/18 13:30 Mack Test NA 09/26/18 13:30 ABG Lactic Acid 16.6 mmol/L (0.5-1.6) H* 09/26/18 17:45 FiO2 50 % 09/26/18 13:30 Sodium 141 mmol/L (137-145) 09/26/18 17:45 Potassium 5.4 mmol/L (3.5-5.1) H 09/26/18 17:45 Chloride 115 mmol/L (98-107) H 09/26/18 17:45 Carbon Dioxide 8 mmol/L (22-30) L* 09/26/18 17:45 Anion Gap 18 mmol/L 09/26/18 17:45 BUN 36 mg/dL (9-20) H 09/26/18 17:45 Creatinine 3.29 mg/dL (0.66-1.25) H 09/26/18 17:45 Est GFR (CKD-EPI)AfAm 22 (>60 ml/min/1.73 sqM) 09/26/18 17:45 Est GFR (CKD-EPI)NonAf 19 (>60 ml/min/1.73 sqM) 09/26/18 17:45 Glucose 226 mg/dL (74-99) H 09/26/18 17:45 POC Glucose (mg/dL) 168 mg/dL (75-99) H 09/26/18 13:11 POC Glu Gis Developer ID Jin Jed 09/26/18 13:[address] Glu mg/dL 100 09/25/18 08:10 Hemoglobin A1c 5.1 % (4.0-6.0) 09/25/18 08:10 Lactic Ac Sepsis Rflx Y 09/25/18 04:39 Plasma Lactic Acid Theodore 5.8 mmol/L (0.7-2.0) H* 09/25/18 08:10 Calcium 4.7 mg/dL (8.4-10.2) L* 09/26/18 17:45 Ionized Calcium Ritesh 3.6 mg/dL (4.5-5.3) L 09/26/18 03:00 Phosphorus 11.6 mg/dL (2.5-4.5) H* 09/26/18 10:40 Magnesium 2.1 mg/dL (1.6-2.3) 09/26/18 10:40 Total Bilirubin 3.0 mg/dL (0.2-1.3) H 09/26/18 13:25 AST 24122 U/L (17-59) H 09/26/18 13:25 ALT 3012 U/L (21-72) H 09/26/18 13:25 Alkaline Phosphatase 72 U/L (38-126) 09/26/18 13:25 Troponin I 0.020 ng/mL (0.000-0.034) 09/25/18 03:47 Total Protein 2.8 g/dL (6.3-8.2) L 09/26/18 13:25 Albumin 1.5 g/dL (3.5-5.0) L 09/26/18 13:25 Lipase 99 U/L (23-300) 09/23/18 13:54 Urine Color Yellow 09/25/18 08:15 Urine Appearance Turbid (Clear) 09/25/18 08:15 Urine pH 5.5 (5.0-8.0) 09/25/18 08:15 Ur Specific Musella 1.028 (1.001-1.035) 09/25/18 08:15 Urine Protein 1+ (Negative) H 09/25/18 08:15 Urine Glucose (UA) Trace (Negative) H 09/25/18 08:15 Urine Ketones Trace (Negative) H 09/25/18 08:15 Urine Blood Small (Negative) H 09/25/18 08:15 Urine Nitrite Negative (Negative) 09/25/18 08:15 Urine Bilirubin Negative (Negative) 09/25/18 08:15 Urine Urobilinogen <2.0 mg/dL (<2.0) 09/25/18 08:15 Ur Leukocyte Esterase Trace (Negative) H 09/25/18 08:15 Urine RBC 13 /hpf (0-5) H 09/25/18 08:15 Urine WBC 3 /hpf (0-5) 09/25/18 08:15 Urine Mucus Rare /hpf (None) H 09/25/18 08:15 Microbiology 09/23/18 13:54 Blood Blood Culture - Preliminary No Growth after 72 hours 09/25/18 23:57 Sputum Gram Stain - Preliminary 09/25/18 23:57 Sputum Sputum Culture - Preliminary Assessment and Plan (1) 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 Because of the rapid severity of the pain in his recent history of intra- abdominal infection treated with percutaneous drainage and antibiotic therapy he presented to the emergency center. At the time of admission computed tomography scan reveals evidence of the extensive phlegmon and colitis of the descending colon. The patient has been seen by surgery and rehydration is occurring. A computed tomography scan has been requested. There is concern the patient will need to be taken to the operating room for a surgical intervention for this extensive infectious process. He fortunately is hemodynamic stable at this point in time. Hydration feels somewhat better. Given that he was treated with ceftriaxone and metronidazole we'll alter to piperacillin tazobactam which we give us coverage for more resistant gram- negative pathogens, enterococcus, and Eraxis will be given if there is a fungal process also occurring. Cultures are process. Surgical plan will be developing as he progresses in the next days time. Profound leukocytosis due to the acute infectious process. September 25 2018 the patient is now status post a subtotal colectomy for the ischemic/necrotizing colitis with some concerns of a potential tumor in the descending colon area. Pathology is pending at this time. Antimicrobial therapy with piperacillin tazobactam Eraxis continue. Patient has a leukemoid reaction from the extensive colonic infection/necrosis and now postoperatively will expect this to improve if the patient overall has improvement. Prognosis is poor. 09/26/2018 patient is seen and care is discussed with the critical care team. The patient is on multiple vasopressors, his multisystem organ failure, ostomy appears to be showing evidence of further ischemic change. Patient is not responding to multiple interventions however a trial of dialysis will be performed if at all possible given his progressive renal failure, progressive acidosis, and hyperkalemia. However with a leukemoid reaction, and current overall status is highly unlikely interventions will be fruitful. Status: Acute Code(s): K57.20 - DVTRCLI OF LG INT W PERFORATION AND ABSCESS W/ O BLEEDING SNOMED Code(s): 579418251 (2) Leukocytosis Status: Acute Code(s): D72.829 - ELEVATED WHITE BLOOD CELL COUNT, UNSPECIFIED SNOMED Code(s): 158979198 (3) Hypoalbuminemia Status: Acute Code(s): E88.09 - OTH DISORDERS OF PLASMA-PROTEIN METABOLISM, NEC SNOMED Code(s): 952611824
[2018-09-27] MEDS ORDERED: HYDROCORTISONE SUCCINATE 100 MG/2 ML VIAL IV SCH
[2018-09-27] MEDS ORDERED: ENOXAPARIN 30 MG/0.3 ML SYRINGE SQ SCH (09:00)
--- NOTE | 2018-10-18 08:14 | CDI ---
Documentation Clarification Form Date: 10/18/18 From: Trinity Grant Phone: If you have a question regarding this query, please contact Hermelinda Chambers at [phone] between 8am and 5pm. Admit Date: 09/23/2018 3:41:00 PM Patient Name: Lonnie Bernardo Visit Number: [id number] Discharge Date: 09/26/2018 10:00:00 PM ATTENTION: The Clinical Documentation Specialists (CDI) and [facility] Coding Staff appreciate your assistance in clarifying documentation. Please respond to the clarification below the line at the bottom and electronically sign. The CDI & [facility] Coding staff will review the response and follow-up if needed. Please note: Queries are made part of the Legal Health Record. If you have any questions, please contact the author of this message via ITS. Dr. Allison Pryor Clarification of Clinical Findings The patient presented with the following severe colitis and sepsis. Per the procedure note and Dr. Limon 09/25 and 09/26 progress notes, there was concern for potential malignancy. History/Risk Factors: Patient has a history of complicated diverticulitis and was admitted for ischemic colitis. Clinical Indicators: Abdominal pain Radiology findings: Abdominal: Findings likely represent severe colitis, difficult to exclude underlying mucosal abnormality, extensive inflammatory changes as described, interval ascites has developed, new small left pleural effusion. Vital Signs: T. 98.9, P. 119, R. 18, Bp 137/89 Treatment: Subtotal colectomy for the colitis Consult: Dr. Limon documented concerns of a potential tumor in the descending colon in his 09/25 and 09/26 progress notes. 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 Luminal surface of the adenocarcinoma is necrotic with bacterial colonization. In your professional opinion, can you please clarify the findings of the pathology report? Malignant adenocarcinoma of the colon Benign tumor of the colon Other, please specify Unable to determine Malignant adenocarcinoma of the colon MTDD
--- NOTE | 2018-10-19 09:07 | P.DS ---
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 Do you want consulting provider notified?: Yes 09/25/18 11:16 Consult Physician Urgent Consulting Provider: Baldomero Arreola Consult Reason/Comments: acute renal failure Do you want consulting provider notified?: Yes 09/25/18 12:27 Consult Physician Routine Consulting Provider: Lobo Torrez Consult Reason/Comments: abd pain Do you want consulting provider notified?: Already Contacted 09/26/18 05:46 Consult Physician Stat Consulting Provider: Elicia Grace Consult Reason/Comments: decreased urinary output, sepsis, possible dialysis Do you want consulting provider notified?: Already Contacted 09/26/18 06:55 Consult Physician Stat Consulting Provider: Tono Anderson Consult Reason/Comments: Dialysis cath Do you want consulting provider notified?: Yes Primary care physician: [facility] Course: Patient is a 62-year-old male with a known history of. Pericolic abscess in August [address]-guided drainage with drain tube and antibiotics, diverticulitis, hepatitis B, C and nicotine addiction quit 5 weeks ago came to ER with complaints of abdominal pain mainly left upper quadrant for the past 2 days. pt eventually developed septic shock needed several pressers with multi- system failure while in ICU, several consultants were following the pt including surgical , pulmonary/critical care , Infectious disease , and nephrology , he is status exploratory lapratomy on 09/25/18, and had necrotizing colitis , he underwent subtotal colectomy, partial omentectomy, and ileostomy. he was on antibiotics as per ID team , and iv fluids, renal replacement therapy was considered due to worsening renal failure, however pt kept to do poorly. pt was pronounced on 09/26/2018 Patient Condition at Discharge: Good Plan - Discharge Summary New Discharge Prescriptions: No Action Acetaminophen Tab [Tylenol] 650 mg PO Q4H PRN PRN Reason: Fever And/ Or Pain Discharge Medication List Acetaminophen Tab [Tylenol] 650 mg PO Q4H PRN 09/23/18 [History] Follow up Appointment(s)/Referral(s): Eliud Sanchez DO [Primary Care Provider] - 1-2 days Discharge Disposition: - Preliminary Cause of Preliminary Cause of : septic shock
== END 2018-09-26 22:00 | disposition expired | DRG 853 ==
LOC: EC 13:24 → 4MS4W 15:41 → 3SCARD 09-25 02:55 → 2SICU 09-25 05:14
PROVIDERS: ADMIT Internal Medicine; ATTEND Internal Medicine
PROC: 0DTH0ZZ Resection of Cecum, Open Approach (ICD-10-PCS; 2018-09-25)
PROC: 0DTL0ZZ Resection of Transverse Colon, Open Approach (ICD-10-PCS; 2018-09-25)
PROC: 0DTM0ZZ Resection of Descending Colon, Open Approach (ICD-10-PCS; 2018-09-25)
PROC: 0D1B0Z4 Bypass Ileum to Cutaneous, Open Approach (ICD-10-PCS; 2018-09-25)
PROC: 0DBU0ZZ Excision of Omentum, Open Approach (ICD-10-PCS; 2018-09-25)
PROC: 5A1945Z Respiratory Ventilation, 24-96 Consecutive Hours (ICD-10-PCS; 2018-09-25)
PROC: 0BH17EZ Insertion of Endotracheal Airway into Trachea, Via Natural or Artificial Opening (ICD-10-PCS; 2018-09-25)
PROC: 02HV33Z Insertion of Infusion Device into Superior Vena Cava, Percutaneous Approach (ICD-10-PCS; 2018-09-25)
PROC: 04HK33Z Insertion of Infusion Device into Right Femoral Artery, Percutaneous Approach (ICD-10-PCS; 2018-09-25)
PROC: 0DTK0ZZ Resection of Ascending Colon, Open Approach (ICD-10-PCS; principal; 2018-09-25 09:40)
PROC: 06HY33Z Insertion of Infusion Device into Lower Vein, Percutaneous Approach (ICD-10-PCS; 2018-09-26)
PROC: 5A1D70Z Performance of Urinary Filtration, Intermittent, Less than 6 Hours Per Day (ICD-10-PCS; 2018-09-26)
DX: A41.9 Sepsis, unspecified organism (principal); G93.41 Metabolic encephalopathy; J96.01 Acute respiratory failure with hypoxia; K72.00 Acute and subacute hepatic failure without coma; N17.0 Acute kidney failure with tubular necrosis; R65.21 Severe sepsis with septic shock; K55.039 Acute (reversible) ischemia of large intestine, extent unspecified; E87.2 Acidosis; I47.2 Ventricular tachycardia; J90 Pleural effusion, not elsewhere classified; R18.8 Other ascites; J98.11 Atelectasis; K57.20 Diverticulitis of large intestine with perforation and abscess without bleeding; B18.1 Chronic viral hepatitis B without delta-agent; C18.6 Malignant neoplasm of descending colon; I46.9 Cardiac arrest, cause unspecified; D69.6 Thrombocytopenia, unspecified; E87.5 Hyperkalemia; E88.09 Other disorders of plasma-protein metabolism, not elsewhere classified; E83.51 Hypocalcemia; I48.0 Paroxysmal atrial fibrillation; L40.9 Psoriasis, unspecified; B18.2 Chronic viral hepatitis C; D72.823 Leukemoid reaction; E16.2 Hypoglycemia, unspecified; E86.0 Dehydration; K59.00 Constipation, unspecified; Z87.891 Personal history of nicotine dependence; Z79.899 Other long term (current) drug therapy
CPT/HCPCS: 36415; 71045; 74177; 80048; 80053; 81001; 82330; 82805; 83036; 83605; 83690; 83735; 84100; 84132; 84484; 85025; 85027; 85610; 85730; 87040; 87070; 87205; 88309; 90935; 93005; 93306; 94002; 94003; 94640; 94644; 94770; 96361; 96365; 96375; 99285